=== PATIENT | male | born 1950 | race Caucasian/White ===

== ENCOUNTER → 2017-04-15 | Outpatient (CLI) | payer BC ==
--- NOTE | 2017-04-15 16:20 | PN ---
PROGRESS NOTE This is a very pleasant, 67-year-old male patient was diagnosed having very severe obstructive sleep apnea with an AHI of 111. The patient is coming in for a followup and a compliancy check regarding his CPAP treatment. I started CPAP treatments on this patient back in January of 2017. 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 Clinically the patient feels much better. He reports that he was and he was rejuvenated by the use of CPAP. He is wearing it at night and his compliance data over the past 60 days shows that he has used almost every night without any interruption. His average CPAP is around 4.6 hours per night. However I have seen some decline in the average CPAP use hours over the past month and is currently down to 3.7 hours on average. He is using an Megan View full-face mask and is leaking around 35 L/minutes. He is reporting that he is drooling into the mask and this is one of reasons why he was pulled mask overnight. His AHI is down to 2.5 while on treatment. He is morbidly obese. No significant weight gain or weight loss. Although he is trying to lose weight. He is committed to weight loss. Arousals have improved. No nocturia. Howland score is down to 2. No other complaints otherwise. PHYSICAL EXAMINATION: BP is 129/67, pulse 75, respirations 16, weight is 316, temperature 97.4, Howland score is 2. Saturation 95% on room air. General appearance is calm and comfortable. Head is atraumatic, normocephalic. Neck is supple. No goiter or neck masses. Mallampati class 4. Lungs clear to auscultation. Heart sounds are regular. Normal S1, S2. No S3. No murmurs. Abdomen is soft, nontender. No organomegaly. EXTREMITIES: No edema. No cyanosis or clubbing. NEUROLOGIC: Alert and oriented x3. There is no focal neurological deficits. Psychiatric is the patient has appropriate mood and affect. IMPRESSION: 1. Very severe obstructive sleep apnea AHI of 111. The patient undergoing CPAP therapy at a pressure of 15 cm of water. 2. Hypersomnia improved Howland score is 2. Will demand better compliance on CPAP therapy. 3. Severe periodic limb movements. 4. Obesity with a BMI of 46.4. 5. Chronic fatigue and sleepiness improving. 6. Benign prostatic hypertrophy. 7. Hypertension. PLAN: 1. Continue CPAP therapy pressure of 15 cm of water with CFLEX of 3. 2. Continue Megan View full-face mask. 3. Change the climate control to Steve and dropped the humidity down to 3 and then if drooling continues drop the humidity down to 2. 4. Utilize temperature tubing of 72 degrees Fahrenheit. 5. Encourage weight loss. 6. Implement good sleep hygiene measures. 7. I would demand improving compliance and I would ask the patient to use at least 4 hours of CPAP use every night. For that reason, I am going to ask the patient to come back in 6 months' time in followup. MMODL / IJN: [id number] /
== END | disposition home or self-care (01) ==
LOC: SLEEP 14:45
PROVIDERS: ATTEND Internal Medicine Critical Care Medicine
DX: G47.33 Obstructive sleep apnea (adult) (pediatric) (principal); G47.10 Hypersomnia, unspecified; G47.61 Periodic limb movement disorder; E66.9 Obesity, unspecified; R53.82 Chronic fatigue, unspecified; N40.0 Benign prostatic hyperplasia without lower urinary tract symptoms; I10 Essential (primary) hypertension; Z68.42 Body mass index [BMI] 45.0-49.9, adult; Z99.89 Dependence on other enabling machines and devices

== ENCOUNTER → 2017-10-28 | Outpatient (CLI) | payer BC ==
--- NOTE | 2017-10-28 18:01 | PN ---
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 Has obtained a DOC certification as the patient demonstrated good compliance. He is averaging of 4.9 hours of CPAP use per night and his pressures of 15 and his AHI is down to 3.3 while on treatment. His baseline AHI is 111 consistent with severe obstructive sleep apnea. He feels great. His sleep quality is improved. He is feeling refreshed during the day. He is using an Megan View full-face mask. He was having issues with humidity. I made some adjustments and currently the humidity and the climate controlled is auto through his CPAP unit. REVIEW OF SYSTEMS: 12-point review of system was done. Positive findings are mentioned above history of present illness. PHYSICAL EXAMINATION: BP is 116/79, pulse 74, respirations 16, temperature 16, temperature 97.6. Saturation 95% on room air. Weight is 318, height is 5 feet 9 inches and BMI is 46.9. General appearance: Calm and comfortable. Head is atraumatic, normocephalic. NECK: Supple. There is no JVD. No goiter. No neck masses. Crowding of the posterior pharynx. LUNGS: Clear to auscultation. HEART: Sounds regular rate and rhythm. Normal S1, S2. No S3. No murmurs. ABDOMEN: Soft, nontender. No organomegaly. EXTREMITIES: No edema. No cyanosis or clubbing. NEUROLOGIC: The patient is alert and orient x3. No focal neurological deficits. SKIN: Negative for any wounds or ulceration. PSYCH: Appropriate mood and affect. IMPRESSION: 1. Severe obstructive sleep apnea, AHI of 111 currently on CPAP with a pressure of 15. 2. Hypersomnia, improved. 3. Poor CPAP compliance. Improving and the patient has met the patient's guidelines and the patient had his DOT certification renewed. 4. Obesity with a BMI of 46. 5. Chronic fatigue and sleepiness improved. 6. Benign prostatic hypertrophy. 7. Hypertension. PLAN: 1. Continue CPAP at same level of pressure. 2. Continue using the Megan View full-face mask. 3. Change humidity and climate control to automatic. 4. Encourage weight loss. 5. See me back in a year's time, earlier if needed. MMODL / IJN: [id number] /
== END | disposition home or self-care (01) ==
LOC: SLEEP 16:07
PROVIDERS: ATTEND Internal Medicine Critical Care Medicine
DX: G47.33 Obstructive sleep apnea (adult) (pediatric) (principal); R53.82 Chronic fatigue, unspecified; N40.0 Benign prostatic hyperplasia without lower urinary tract symptoms; I10 Essential (primary) hypertension; E66.9 Obesity, unspecified; Z68.42 Body mass index [BMI] 45.0-49.9, adult

== ENCOUNTER 2018-02-25 06:42 | Day surgery (SDC) | payer BC, OTHER ==
[2018-02-23 09:17] VITALS: BMI 37.3
--- NOTE | 2018-02-25 07:43 | P.GSHP ---
History of Present Illness H&P Date: 02/25/18 CHIEF COMPLAINT: Colon screen HISTORY OF PRESENT ILLNESS: The patient is a 67-year-old male who presents for colon screen. Lower endoscopy was offered for further evaluation and management. PAST MEDICAL HISTORY: Please see list. PAST SURGICAL HISTORY: Please see list. MEDICATIONS: Please see list. ALLERGIES: Please see list. SOCIAL HISTORY: No illicit drug use FAMILY HISTORY: No reports of Crohn disease or ulcerative colitis. REVIEW OF ORGAN SYSTEMS: CONSTITUTIONAL: No reports of fevers or chills. PHYSICAL EXAM: VITAL SIGNS: Stable GENERAL: Well-developed pleasant in no acute distress. HEENT: No scleral icterus. Extraocular movements grossly intact. Moist buccal mucosa. NECK: Supple without lymphadenopathy. CHEST: Unlabored respirations. Equal bilateral excursions. CARDIOVASCULAR: Regular rate and rhythm. Distal 2+ pulses. ABDOMEN: Soft, nontender, nondistended. MUSCULOSKELETAL: No clubbing, cyanosis, or edema. ASSESSMENT: 1. Colon screen. PLAN: 1. Recommend proceeding with a lower endoscopy Past Medical History Past Medical History: Hypertension, Prostate Disorder Additional Past Medical History / Comment(s): BPH, ELECTROCUTED IN 1991- BODY ACHES. History of Any Multi-Drug Resistant Organisms: None Reported Additional Past Surgical History / Comment(s): CATARACTS Past Anesthesia/Blood Transfusion Reactions: No Reported Reaction Past Psychological History: No Psychological Hx Reported Smoking Status: Never smoker Past Alcohol Use History: Occasional Additional Past Alcohol Use History / Comment(s): SMOKED TEEN- QUIT 1968 Past Drug Use History: None Reported - Past Family History Mother Family Medical History: No Reported History Medications and Allergies Home Medications Medication Instructions Recorded Confirmed Type Carvedilol [Coreg] 25 mg PO BID 02/23/18 02/23/18 History Dutasteride [Avodart] 0.5 mg PO HS 02/23/18 02/23/18 History Ibuprofen [Advil] 200 mg PO Q48H PRN 02/23/18 02/23/18 History Lisinopril-Hctz 20-25 mg 1 tab PO DAILY 02/23/18 02/23/18 History [Zestoretic 20-25] amLODIPine [Norvasc] 10 mg PO DAILY 02/23/18 02/23/18 History
[2018-02-25] MEDS ORDERED: LACTATED RINGERS 1,000 ML IV SCH (08:07)
[2018-02-25 08:13] VITALS: TEMP 98.2
[2018-02-25] MEDS ORDERED: LIDOCAINE 1% 20 ML VIAL (10MG/ML) FOR IV START INTRADERMA ONE (08:24)
[2018-02-25] MEDS ORDERED: PROPOFOL 10 MG/ML 20 ML VIAL IV ONE (08:52)
[2018-02-25 09:34] VITALS: RESP 12
[2018-02-25 09:48] VITALS: BP 134/71; PULSE 69
--- NOTE | 2018-02-25 09:49 | P.PCN ---
Date of Procedure: 02/25/18 Description of Procedure: PREOPERATIVE DIAGNOSIS: Colonoscopy screening, first POSTOPERATIVE DIAGNOSIS: Colonoscopy screening, first Multiple tubular adenomas throughout the colon. OPERATION: Colonoscopy to the ileocecal valve and appendiceal orifice. Colonoscopy with multiple hot snare polypectomies SURGEON: Fay Duval MD. ANESTHESIA: MAC. INDICATIONS: The patient is a 67-year-old male who presents for colonoscopy screening. Benefits and risks were described and informed consent was obtained. DESCRIPTION OF PROCEDURE: The patient had undergone Gatorade, MiraLAX and Dulcolax prep. He had been brought into the operating room and laid in the left lateral decubitus position. After adequate intravenous sedation, the rectum was examined with 2% lidocaine jelly. External hemorrhoids were encountered. The rectal tone was within normal limits. No lesions were palpated in the rectal vault. An Olympus colonoscope was advanced until the ileocecal valve and appendiceal orifice were clearly viewed. The prep was fair with visualization of the mucosal folds. The scope was removed with visualization of each mucosal fold. No scattered diverticulosis was encountered. Multiple colonic polyps were found and snare polypectomy. No evidence of focal colitis was found. Retroflexion of the scope demonstrated no grade 1 internal hemorrhoids. The colon was desufflated. The patient had tolerated the procedure well. Withdrawal time was over 6 minutes. FINDINGS: Internal hemorrhoids, grade 1 External hemorrhoids, grade 2. No arteriovenous malformations. No sigmoid diverticulosis Removal of 7 polyps: - Snare polypectomy 20 cm from the anal verge, 5 mm tubulovillous adenoma polyp. - Snare polypectomy 15 cm from the anal verge, 8 mm flat villous adenoma polyp. - Snare polypectomy 10 cm from the anal verge, 12 mm flat villous adenoma polyp. - Snare polypectomy at cecum 2, 4 mm polyp, villous. - Snare polypectomy at appendiceal orifice, 5 mm polyp. - Snare polypectomy at ascending colon colon, 8 mm polyp. No focal colitis. RECOMMENDATIONS: Given severity of tubular adenomas, recommend repeat colonoscopy in 6 months, August 2018 Plan - Discharge Summary New Discharge Prescriptions: No Action amLODIPine [Norvasc] 10 mg PO DAILY Dutasteride [Avodart] 0.5 mg PO HS Carvedilol [Coreg] 25 mg PO BID Lisinopril-Hctz 20-25 mg [Zestoretic 20-25] 1 tab PO DAILY Ibuprofen [Advil] 200 mg PO Q48H PRN PRN Reason: Pain Discharge Medication List Carvedilol [Coreg] 25 mg PO BID 02/23/18 [History] Dutasteride [Avodart] 0.5 mg PO HS 02/23/18 [History] Ibuprofen [Advil] 200 mg PO Q48H PRN 02/23/18 [History] Lisinopril-Hctz 20-25 mg [Zestoretic 20-25] 1 tab PO DAILY 02/23/18 [History] amLODIPine [Norvasc] 10 mg PO DAILY 02/23/18 [History] Follow up Appointment(s)/Referral(s): Fay Duval MD [STAFF PHYSICIAN] - 03/24/18 Patient Instructions/Handouts: Colorectal Polyps (GEN) Activity/Diet/Wound Care/Special Instructions: Repeat colonoscopy 6 months, August 2018 Discharge Disposition: HOME SELF-CARE
== END 2018-02-25 10:08 | disposition home or self-care (01) ==
LOC: ORWHC2ENDO 06:42
PROVIDERS: ATTEND Surgery Plastic and Reconstructive Surgery
DX: Z12.11 Encounter for screening for malignant neoplasm of colon (principal); D12.7 Benign neoplasm of rectosigmoid junction; D12.1 Benign neoplasm of appendix; D12.0 Benign neoplasm of cecum; D12.5 Benign neoplasm of sigmoid colon; D17.79 Benign lipomatous neoplasm of other sites; K64.0 First degree hemorrhoids; K64.4 Residual hemorrhoidal skin tags; I10 Essential (primary) hypertension; N40.0 Benign prostatic hyperplasia without lower urinary tract symptoms; E66.01 Morbid (severe) obesity due to excess calories; Z68.37 Body mass index [BMI] 37.0-37.9, adult; Z79.899 Other long term (current) drug therapy; Z87.891 Personal history of nicotine dependence
CPT/HCPCS: 88305; 45385; J2704

== ENCOUNTER 2021-10-28 11:43 | Inpatient (IN) | payer BC, MEDICARE, OTHER ==
--- NOTE | 2021-10-28 13:12 | XR ---
EXAMINATION TYPE: XR chest 2V DATE OF EXAM: 10/28/2021 COMPARISON: None HISTORY: 71 year-old male shortness of breath, difficulty breathing. TECHNIQUE: PA and lateral views FINDINGS: Heart mildly enlarged. Diffuse interstitial change and perihilar density. Mild patchy basilar opaciti es. Trace effusions also suggested on the lateral view. DISH mid and lower and thoracic spine. IMPRESSION: Intimately diffuse interstitial changes. Appearance of trace effusions on the lateral view. Correlate for CHF with early interstitial edema.
[2021-10-28 13:46] LABS: Basophils # (A) 0.1 k/uL (0-0.2); Basophils % (A) 1 %; Eosinophils # (A) 0.1 k/uL (0-0.7); Eosinophils % (A) 2 %; HCT 41.8 % (39.0-53.0); Lymphocytes # (A) 0.8 k/uL (1.0-4.8); Lymphocytes % (A) 10 %; MCV 96.9 fL (80.0-100.0); Mean Platelet Volume 7.8; Monocytes # (A) 0.3 k/uL (0-1.0); Monocytes % (A) 3 %; Neutrophils # (A) 6.9 k/uL (1.3-7.7); Neutrophils % (A) 85 %; Platelet Count 193 k/uL (150-450); RBC 4.32 m/uL (4.30-5.90); RDW 13.9 % (11.5-15.5); WBC 8.1 k/uL (3.8-10.6)
[2021-10-28 13:59] LABS: Albumin 4.4 g/dL (3.5-5.0); Calcium 9.1 mg/dL (8.4-10.2); INR 1.1 (<1.2); Partial Thromboplastin Time 24.8 sec (22.0-30.0); Potassium 4.5 mmol/L (3.5-5.1); Prothrombin Time 11.8 sec (9.0-12.0); Total Bilirubin 0.5 mg/dL (0.2-1.3)
--- NOTE | 2021-10-28 15:37 | CT ---
EXAMINATION TYPE: CT angio chest CT DLP: 1146.3 mGycm, Automated exposure control for dose reduction was used. DATE OF EXAM: 10/28/2021 3:20 PM COMPARISON: Chest radiograph from same day. CLINICAL INDICATION:Male, 71 years old with history of PE suspected; SOB TECHNIQUE/CONTRAST: CTA scan of the thorax is performed with IV Contrast, patient injected with 100 mL of Isovue 370, pul monary embolism protocol. MIP images are created and reviewed. FINDINGS: Respiratory motion limits evaluation. Pulmonary Artery: There is no evidence for a central filling defect within the pulmonary vasculature to suggest acute pulmonary embolism. Limited evaluation of the segmental and subsegmental branches se condary to bolus timing. The pulmonary artery is of normal size. Lungs/Pleura: Motion limits evaluation there are Trace pleural effusion bilaterally. 9 mm left lower lobe pulmonary nodule. Right lower lobe 17 mm pulmonary nodule. No focal consolidation or pneumothora x. Airway: Large airways are patent. Heart: Heart is within normal limits for size.. Vasculature: No evidence of aortic aneurysm. Mediastinum: Right pulmonary hilum lymph nodes measuring up to 14 x 19 mm. Subcarinal lymph node nilo uring 14 mm in short axis. Musculoskeletal: No acute osseous abnormalities Soft Tissues: Unremarkable. Lower neck: No significant findings. Upper Abdomen: Diffuse low-attenuation to the liver parenchyma. IMPRESSION: 1. No evidence of central pulmonary embolism. Limited evaluation of the segmental and subsegmental br anches. 2. Bilateral pulmonary nodules which are suboptimally evaluated given respiratory motion. Additional mediastinal and right pulmonary hilum lymphadenopathy. Overall findings suspicious for malignancy wit h metastatic disease of the right pulmonary hilum. Consider PET/CT for confirmation. 3. Cardiomegaly with trace pleural effusions correlate with congestive heart failure. 4. Hepatic steatosis.
[2021-10-28] MEDS ORDERED: FUROSEMIDE 10 MG/ML 4 ML VIAL IV STA (15:53)
[2021-10-28] MEDS ORDERED: IPRATROPIUM-ALBUTEROL 3 ML NEB INHALATION STA (15:54)
--- NOTE | 2021-10-28 17:00 | ED ---
SOB HPI - General Chief Complaint: Shortness of Breath Stated Complaint: Pneumonia Time Seen by Provider: 10/28/21 14:29 Source: patient, RN notes reviewed Mode of arrival: wheelchair Limitations: no limitations - History of Present Illness Initial Comments: 71-year-old male with a history of being diagnosed with pneumonia couple weeks ago who was antibiotics and steroids she states she's getting no better since the initiation of the antibiotics and steroids. He has exertional dyspnea no chest pain he had hot and cold flashes a couple weeks ago but none recently. He is not a smoker denies any history of lung disease though he did work in a [employer]. MD Complaint: shortness of breath - Related Data Home Medications Medication Instructions Recorded Confirmed Dutasteride [Avodart] 0.5 mg PO HS 02/23/18 08/31/18 Lisinopril-Hctz 20-25 mg 1 tab PO DAILY 02/23/18 08/31/18 [Zestoretic 20-25] amLODIPine [Norvasc] 10 mg PO DAILY 02/23/18 08/31/18 carvediloL [Coreg] 25 mg PO BID 02/23/18 08/31/18 Naproxen Sodium [Aleve] 220 mg PO DAILY 08/31/18 08/31/18 Allergies Allergy/AdvReac Type Severity Reaction Status Date / Time No Known Allergies Allergy Verified 10/28/21 12:26 Review of Systems ROS Statement: Those systems with pertinent positive or pertinent negative responses have been documented in the HPI. ROS Other: All systems not noted in ROS Statement are negative. Past Medical History Past Medical History: Hypertension, Prostate Disorder Additional Past Medical History / Comment(s): BPH, ELECTROCUTED IN 1991- BODY ACHES. History of Any Multi-Drug Resistant Organisms: None Reported Additional Past Surgical History / Comment(s): CATARACTS Past Anesthesia/Blood Transfusion Reactions: No Reported Reaction Past Psychological History: No Psychological Hx Reported Smoking Status: Never smoker Past Alcohol Use History: Occasional Past Drug Use History: None Reported - Past Family History Mother Family Medical History: No Reported History General Exam - General Exam Comments Initial Comments: This is a well-developed well-nourished awake alert oriented 4 male Limitations: no limitations General appearance: alert, in no apparent distress Head exam: Present: atraumatic, normocephalic, normal inspection Eye exam: Present: normal appearance, PERRL, EOMI. Absent: scleral icterus, conjunctival injection, periorbital swelling ENT exam: Present: normal exam, mucous membranes moist Neck exam: Present: normal inspection. Absent: tenderness, meningismus, lymphadenopathy Respiratory exam: Present: decreased breath sounds. Absent: respiratory distress, wheezes, rales, rhonchi, stridor Cardiovascular Exam: Present: regular rate, normal rhythm, normal heart sounds. Absent: systolic murmur, diastolic murmur, rubs, gallop, clicks GI/Abdominal exam: Present: soft, normal bowel sounds. Absent: distended, tenderness, guarding, rebound, rigid Extremities exam: Present: normal inspection, full ROM, normal capillary refill. Absent: tenderness, pedal edema, joint swelling, calf tenderness Back exam: Present: normal inspection Neurological exam: Present: alert, oriented X3, CN II-XII intact Psychiatric exam: Present: normal affect, normal mood Skin exam: Present: warm, dry, intact, normal color. Absent: rash Course Vital Signs 10/28/21 10/28/21 10/28/21 12:26 16:10 16:21 Temperature 98.7 F Pulse Rate 79 70 71 Respiratory 18 Rate Blood Pressure 131/73 O2 Sat by Pulse 91 L Oximetry Medical Decision Making - Medical Decision Making I did discuss the findings with the patient family members as well as with Dr. Bolanos. Patient be admitted consultation by pulmonary medicine. - Lab Data Result diagrams: 10/28/21 12:29 10/28/21 12:29 Lab Results 10/28/21 10/28/21 10/28/21 Range/Units 12:29 12:29 12:29 WBC 8.1 (3.8-10.6) k/uL RBC 4.32 (4.30-5.90) m/uL Hgb 13.0 (13.0-17.5) gm/dL Hct 41.8 (39.0-53.0) % MCV 96.9 (80.0-100.0) fL MCH 30.0 (25.0-35.0) pg MCHC 31.0 (31.0-37.0) g/dL RDW 13.9 (11.5-15.5) % Plt Count 193 (150-450) k/uL MPV 7.8 Neutrophils % 85 % Lymphocytes % 10 % Monocytes % 3 % Eosinophils % 2 % Basophils % 1 % Neutrophils # 6.9 (1.3-7.7) k/uL Lymphocytes # 0.8 L (1.0-4.8) k/uL Monocytes # 0.3 (0-1.0) k/uL Eosinophils # 0.1 (0-0.7) k/uL Basophils # 0.1 (0-0.2) k/uL PT 11.8 (9.0-12.0) sec INR 1.1 (<1.2) APTT 24.8 (22.0-30.0) sec D-Dimer 0.81 H (<0.60) mg/L FEU Sodium 142 (137-145) mmol/L Potassium 4.5 (3.5-5.1) mmol/L Chloride 103 (98-107) mmol/L Carbon Dioxide 28 (22-30) mmol/L Anion Gap 11 mmol/L BUN 30 H (9-20) mg/dL Creatinine 1.14 (0.66-1.25) mg/dL Est GFR (CKD-EPI)AfAm 75 (>60 ml/min/1.73 sqM) Est GFR (CKD-EPI)NonAf 65 (>60 ml/min/1.73 sqM) Glucose 116 H (74-99) mg/dL Plasma Lactic Acid Damian (0.7-2.0) mmol/L Calcium 9.1 (8.4-10.2) mg/dL Total Bilirubin 0.5 (0.2-1.3) mg/dL AST 134 H (17-59) U/L ALT 172 H (4-49) U/L Alkaline Phosphatase 73 (38-126) U/L Troponin I (0.000-0.034) ng/mL NT-Pro-B Natriuret Pep pg/mL Total Protein 8.0 (6.3-8.2) g/dL Albumin 4.4 (3.5-5.0) g/dL 10/28/21 10/28/21 10/28/21 Range/Units 12:29 12:29 12:29 WBC (3.8-10.6) k/uL RBC (4.30-5.90) m/uL Hgb (13.0-17.5) gm/dL Hct (39.0-53.0) % MCV (80.0-100.0) fL MCH (25.0-35.0) pg MCHC (31.0-37.0) g/dL RDW (11.5-15.5) % Plt Count (150-450) k/uL MPV Neutrophils % % Lymphocytes % % Monocytes % % Eosinophils % % Basophils % % Neutrophils # (1.3-7.7) k/uL Lymphocytes # (1.0-4.8) k/uL Monocytes # (0-1.0) k/uL Eosinophils # (0-0.7) k/uL Basophils # (0-0.2) k/uL PT (9.0-12.0) sec INR (<1.2) APTT (22.0-30.0) sec D-Dimer (<0.60) mg/L FEU Sodium (137-145) mmol/L Potassium (3.5-5.1) mmol/L Chloride (98-107) mmol/L Carbon Dioxide (22-30) mmol/L Anion Gap mmol/L BUN (9-20) mg/dL Creatinine (0.66-1.25) mg/dL Est GFR (CKD-EPI)AfAm (>60 ml/min/1.73 sqM) Est GFR (CKD-EPI)NonAf (>60 ml/min/1.73 sqM) Glucose (74-99) mg/dL Plasma Lactic Acid Damian 0.9 (0.7-2.0) mmol/L Calcium (8.4-10.2) mg/dL Total Bilirubin (0.2-1.3) mg/dL AST (17-59) U/L ALT (4-49) U/L Alkaline Phosphatase (38-126) U/L Troponin I <0.012 (0.000-0.034) ng/mL NT-Pro-B Natriuret Pep 981 pg/mL Total Protein (6.3-8.2) g/dL Albumin (3.5-5.0) g/dL - EKG Data -: EKG Interpreted by Me EKG shows normal: sinus rhythm EKG Comments: Sinus rhythm occasional PACs rate 67. We'll 171 QRS duration 90 QT since QTC 380/403 - Radiology Data Radiology results: report reviewed (Imaging reviewed as well as reports evidence of some pulmonary venous or congestion small effusion on the lateral x-ray. Additionally CAT scan shows evidence of lymphadenopathy suspicious for neoplasm. He see complete report), image reviewed Disposition Clinical Impression: Congestive heart failure, Acute bronchospasm, Failure of outpatient treatment Disposition: ADMITTED IP TO THIS [facility] Condition: Fair Referrals: Devonte Baum DO [Primary Care Provider] - 1-2 days Decision Date: 10/28/21 Decision Time: 16:30
[2021-10-28] MEDS ORDERED: NALOXONE 0.4 MG/ML 1 ML VIAL IV PRN (17:11)
[2021-10-28] MEDS ORDERED: ACETAMINOPHEN TAB 325 MG TAB PO PRN (17:11)
[2021-10-28] MEDS ORDERED: methylPREDNISolone SOD SUCCI 125 MG/2 ML VIAL IV STA (17:14)
[2021-10-28] MEDS: SODIUM CHLORIDE 0.9% 1,000 ML IV SCH (17:31)
[2021-10-28] MEDS: methylPREDNISolone SOD SUCCI 125 MG/2 ML VIAL IV SCH ×2 (18:33→23:35)
[2021-10-28] MEDS: IPRATROPIUM-ALBUTEROL 3 ML NEB INHALATION SCH (21:27)
[2021-10-28] MEDS: carvediloL 12.5 MG TAB PO SCH (22:53)
[2021-10-28] MEDS: FINASTERIDE 5 MG TAB PO SCH (22:54)
[2021-10-29] MEDS: IPRATROPIUM-ALBUTEROL 3 ML NEB INHALATION SCH ×4 (01:47→19:21)
[2021-10-29] MEDS: methylPREDNISolone SOD SUCCI 125 MG/2 ML VIAL IV SCH ×3 (05:30→18:01)
[2021-10-29] MEDS: amLODIPine 10 MG TAB PO SCH (09:31)
[2021-10-29] MEDS: carvediloL 12.5 MG TAB PO SCH ×2 (09:31→21:24)
[2021-10-29] MEDS: NAPROXEN 250 MG TAB PO SCH (10:00)
[2021-10-29] MEDS: LISINOPRIL-HCTZ 20-25 MG 1 EACH TAB PO SCH (10:00)
[2021-10-29] MEDS: FUROSEMIDE 20 MG TAB PO SCH ×2 (11:34→18:02)
[2021-10-29] MEDS ORDERED: DEXTROSE 50% SYRINGE 50 ML IVP PRN ×2 (11:39)
--- NOTE | 2021-10-29 11:40 | P.HPIM ---
History of Present Illness This is a pleasant 71 years old male with past medical history of hypertension, sleep apnea, benign prostatic hypertrophy. Patient states that he wants [facility] about 8 days ago complaining of from shortness of breath and coughing with greenish phlegm and he was diagnosed with pneumonia, he was discharge on oral antibiotic, snf through he was not feeling better so he contacted his PCP Dr. Baum who prescribed him steroid pill, still was not feeling better he decided to come to this facility emergency room. Today I saw him in room 481, dressed up and walking in the room, he is not tachypneic or dyspneic Kay he is saturating well on room air. He denies any dyspnea currently no chest pain. He has no coughing or does not make phlegm today. He denies abdominal pain or vomiting or diarrhea. No urinary complaints. No headache or dizziness. No weakness or numbness. No fever. He denies smoking, last time he smoked was in high school. No alcohol or illicit drugs. Son at bedside all questions answered. Patient's looks eager to go home soon Patient is afebrile, vitals are stable. He is saturating low 90s on room air. significantly tachypneic. Labs show an unremarkable CBC, BMP, but liver enzymes are elevated with AST 134 and ALT 172. Bilirubin is normal. Troponin 3 are negative less than 0.012. ProBNP 981 EKG showing normal sinus rhythm at [address]-T changes Chest x-ray: Diffuse interstitial changes. Appearance of trace effusions on the lateral view. Coronary event for CHF with early interstitial edema. As per radiology Chest CTA: No evidence of PE. Bilateral pulmonary nodules which are suboptimally evaluated given respiratory motion, additional mediastinal and right pulmonary hilar lymphadenopathy. Overall findings suspicious for malignancy with metastatic disease of the right pulmonary hilum. Consider PET/CTs for confirmation cardiomegaly with trace pleural effusions, correlate for CHF. Hepatic steatosis In the emergency room patient received Lasix 1, breathing treatment and started on Solu-Medrol 60 mg Review of Systems Review of systems CONSTITUTIONAL: No fever, no malaise, no fatigue. HEENT: No recent visual problems or hearing problems. Denied any sore throat. CARDIOVASCULAR: No orthopnea, PND, no palpitations, no syncope. PULMONARY: No chest wall tenderness, no hemoptysis. GASTROINTESTINAL: No diarrhea, no nausea, no vomiting, no abdominal pain. Normoactive bowel sounds. NEUROLOGICAL: No headaches, no weakness, no numbness. HEMATOLOGICAL: Denies any bleeding or petechiae. GENITOURINARY: Denies any burning micturition, frequency, or urgency. MUSCULOSKELETAL/RHEUMATOLOGICAL: Denies any joint pain, swelling, or any muscle pain. ENDOCRINE: Denies any polyuria or polydipsia. Past Medical History Past Medical History: Hypertension, Sleep Apnea/CPAP/BIPAP Additional Past Medical History / Comment(s): BPH, ELECTROCUTED IN 1991- BODY ACHES. History of Any Multi-Drug Resistant Organisms: None Reported Additional Past Surgical History / Comment(s): CATARACTS Past Anesthesia/Blood Transfusion Reactions: No Reported Reaction Past Psychological History: No Psychological Hx Reported Smoking Status: Former smoker Past Alcohol Use History: Occasional Additional Past Alcohol Use History / Comment(s): SMOKED TEEN- QUIT 1968 Past Drug Use History: None Reported - Past Family History Mother Family Medical History: No Reported History Father Family Medical History: Congestive Heart Failure (CHF) Medications and Allergies Home Medications Medication Instructions Recorded Confirmed Type Dutasteride [Avodart] 0.5 mg PO HS 02/23/18 10/28/21 History amLODIPine [Norvasc] 10 mg PO DAILY 02/23/18 10/28/21 History carvediloL [Coreg] 25 mg PO BID 02/23/18 10/28/21 History Aspirin EC [Ecotrin Low Dose] 81 mg PO DAILY 10/28/21 10/28/21 History Losartan/Hydrochlorothiazide 1 tab PO DAILY 10/28/21 10/28/21 History [Losartan-Hctz 100-25 mg Tab] Multivitamins, Thera [Multivitamin 1 tab PO DAILY 10/28/21 10/28/21 History (formulary)] predniSONE See Taper PO DIRECTED 10/28/21 10/28/21 History Allergies Allergy/AdvReac Type Severity Reaction Status Date / Time No Known Allergies Allergy Verified 10/28/21 17:31 Physical Exam Vitals: Vital Signs Temp Pulse Pulse Resp BP BP Pulse Ox 10/29/21 09:32 92 L 10/29/21 08:34 68 10/29/21 08:27 72 10/29/21 07:56 98 F 69 16 157/94 93 L 10/29/21 07:43 18 10/29/21 02:00 98.3 F 78 18 173/95 92 L 10/29/21 01:56 69 10/29/21 01:47 71 10/28/21 21:39 70 10/28/21 21:28 68 10/28/21 20:00 98.4 F 67 18 165/77 94 L 10/28/21 18:00 69 18 119/72 10/28/21 16:21 71 10/28/21 16:10 70 10/28/21 14:29 18 10/28/21 12:26 98.7 F 79 18 131/73 91 L Intake and Output 10/28/21 10/29/21 10/29/21 22:59 06:59 14:59 Other: Voiding Method Toilet Toilet # Voids 2 Weight 149.685 kg -GENERAL: The patient is alert and oriented x3, not in any acute distress. Obese HEENT: Pupils are round and equally reacting to light. EOMI. No scleral icterus. No conjunctival pallor. Normocephalic, atraumatic. No pharyngeal erythema. No thyromegaly. CARDIOVASCULAR: S1 and S2 present. No murmurs, rubs, or gallops. PULMONARY: Chest is clear to auscultation, no wheezing or crackles. ABDOMEN: Soft, nontender, nondistended, normoactive bowel sounds. No palpable organomegaly. MUSCULOSKELETAL: No joint swelling or deformity. EXTREMITIES: No cyanosis, clubbing, or pedal edema. NEUROLOGICAL: Gross neurological examination did not reveal any focal deficits. SKIN: No rashes. no petechiae. Results CBC & Chem 7: 10/28/21 12:29 10/28/21 12:29 Labs: Abnormal Lab Results - Last 24 Hours (Table) 10/28/21 10/28/21 10/28/21 Range/Units 12:29 12:29 12:29 Lymphocytes # 0.8 L (1.0-4.8) k/uL D-Dimer 0.81 H (<0.60) mg/L FEU BUN 30 H (9-20) mg/dL Glucose 116 H (74-99) mg/dL AST 134 H (17-59) U/L ALT 172 H (4-49) U/L Thrombosis Risk Factor Assmnt - Choose All That Apply Each Factor Represents 1 point: Obesity (BMI >25) Other Risk Factors: Yes Each Risk Factor Represents 2 Points: Age 61-74 years Other congenital or acquired thrombophilia - If yes, enter type in comment: No Thrombosis Risk Factor Assessment Total Risk Factor Score: 3 Thrombosis Risk Factor Assessment Level: Moderate Risk Assessment and Plan Assessment: bilateral pulmonary nodules suspicious for malignancy with hilar and mediastinal lymphadenopathy. Possible COPD with acute exacerbation Mild transaminitis Hypertension History of sleep apnea Benign prostatic hypertrophy Obesity with BMI of 46 Plan: This is a pleasant 71 years old male who presents with dyspnea secondary to pulmonary nodule Continue with steroids Continue with small dose of oral Lasix Pulmonary team consult on the case Labs and medication were reviewed.. Continue same treatment. Continue with symptomatic treatment. Resume home medication. Monitor lytes and vitals. DVT and GI prophylaxis. Further recommendations as per clinical course of the patient DVT prophylaxis: Subcutaneous heparin GI Prophylaxis: Pepcid Prognosis is guarded
[2021-10-29] MEDS: INSULIN ASPART (NovoLOG) 100 UNIT/ML VIAL SQ SCH ×3 (12:32→21:24)
--- NOTE | 2021-10-29 13:04 | P.CNPUL ---
History of Present Illness Consult date: 10/29/21 Requesting physician: Nic Ramírez Reason for consult: dyspnea, abnormal CXR/CT Chief complaint: Shortness of breath, cough, congestion History of present illness: This is a very pleasant 71-year-old male patient who follows with Dr. Baum as his primary care provider. He has a history of hypertension, obesity, obstructive sleep apnea, former smoker, BPH. He had recently been having issues with shortness of breath cough and congestion. He was seen at [facility] and treated for pneumonia. CoVID screen was negative. He was given antibiotics. He is in follow-up with his PCP was started him on steroids. He did not have much improvement and presented here to the emergency room for the same. Chest x-ray revealed some diffuse interstitial changes with trace effusions. CT angiogram revealed no evidence of pulmonary embolism. Bilateral pulmonary nodules. Additional mediastinal right pulmonary hilum lymphadenopathy. Cardiomegaly with trace effusions. Hepatic steatosis. White count 8.1. Hemoglobin 13.0. D-dimer 0.81. Sodium 142. Potassium 4.2. BUN 30. Creatinine 1.14. AST 134. ALT 172. Troponins negative 3. ProBNP 981. He was given Lasix 40 mg IVP 1 yesterday. Initiated and DuoNeb inhalations, IV Solu-Medrol, heparin for DVT prophylaxis. He is seen today in consultation on the regular medical floor. He's been up ambulating in the hallway. No acute distress. Maintaining O2 saturations in the 90s on room air. Review of Systems REVIEW OF SYSTEMS: CONSTITUTIONAL: Denies any recent significant weight loss or weight gain. EYES: Denies change in vision. EARS, NOSE, MOUTH, THROAT: Denies headaches, denies sore throat. CARDIOVASCULAR: Denies chest pain, palpitations or syncopal episodes. RESPIRATORY: Positive for shortness of breath, cough, congestion no hemoptysis. GASTROINTESTINAL: Denies change in appetite, denies abdominal pain GENITOURINARY: Denies hematuria, denies infections. MUSKULOSKELETAL: Denies pain, denies swelling. INTEGUMENTARY: Denies rash, denies eczema. NEUROLOGICAL: Denies recent memory loss, no recent seizure activity. PSYCHIATRIC: Denies anxiety, denies depression. HEMATOLOGIC/LYMPHATIC: Denies anemia, denies enlarged lymph nodes. Past Medical History Past Medical History: Hypertension, Sleep Apnea/CPAP/BIPAP Additional Past Medical History / Comment(s): BPH, ELECTROCUTED IN 1991- BODY ACHES. History of Any Multi-Drug Resistant Organisms: None Reported Additional Past Surgical History / Comment(s): CATARACTS Past Anesthesia/Blood Transfusion Reactions: No Reported Reaction Past Psychological History: No Psychological Hx Reported Smoking Status: Former smoker Past Alcohol Use History: Occasional Additional Past Alcohol Use History / Comment(s): SMOKED TEEN- QUIT 1968 Past Drug Use History: None Reported - Past Family History Mother Family Medical History: No Reported History Father Family Medical History: Congestive Heart Failure (CHF) Medications and Allergies Home Medications Medication Instructions Recorded Confirmed Type Dutasteride [Avodart] 0.5 mg PO HS 02/23/18 10/28/21 History amLODIPine [Norvasc] 10 mg PO DAILY 02/23/18 10/28/21 History carvediloL [Coreg] 25 mg PO BID 02/23/18 10/28/21 History Aspirin EC [Ecotrin Low Dose] 81 mg PO DAILY 10/28/21 10/28/21 History Losartan/Hydrochlorothiazide 1 tab PO DAILY 10/28/21 10/28/21 History [Losartan-Hctz 100-25 mg Tab] Multivitamins, Thera [Multivitamin 1 tab PO DAILY 10/28/21 10/28/21 History (formulary)] predniSONE See Taper PO DIRECTED 10/28/21 10/28/21 History Allergies Allergy/AdvReac Type Severity Reaction Status Date / Time No Known Allergies Allergy Verified 10/28/21 17:31 Physical Exam Vitals: Vital Signs Temp Pulse Pulse Resp BP BP Pulse Ox 10/29/21 12:48 72 10/29/21 09:32 92 L 10/29/21 08:34 68 10/29/21 08:27 72 10/29/21 07:56 98 F 69 16 157/94 93 L 10/29/21 07:43 18 10/29/21 02:00 98.3 F 78 18 173/95 92 L 10/29/21 01:56 69 10/29/21 01:47 71 10/28/21 21:39 70 10/28/21 21:28 68 10/28/21 20:00 98.4 F 67 18 165/77 94 L 10/28/21 18:00 69 18 119/72 10/28/21 16:21 71 10/28/21 16:10 70 10/28/21 14:29 18 Intake and Output 10/28/21 10/29/21 10/29/21 22:59 06:59 14:59 Other: Voiding Method Toilet Toilet # Voids 2 Weight 149.685 kg GENERAL EXAM: Alert, active, very pleasant obese 71-year-old male patient, on room air, comfortable in no apparent distress. HEAD: Normocephalic. EYES: Normal reaction of pupils, equal size. NOSE: Clear with pink turbinates. THROAT: No erythema or exudates. NECK: No masses, no JVD. CHEST: No chest wall deformity. LUNGS: Equal air entry with faint crackles in the posterior bases CVS: S1 and S2 normal with no audible murmur, regular rhythm. ABDOMEN: No hepatosplenomegaly, normal bowel sounds, no guarding or rigidity. SPINE: No scoliosis or deformity SKIN: No rashes CENTRAL NERVOUS SYSTEM: No focal deficits, tone is normal in all 4 extremities. EXTREMITIES: There is no peripheral edema. No clubbing, no cyanosis. Perip heral pulses are intact. Results - Laboratory Findings CBC and BMP: 10/28/21 12:29 10/28/21 12:29 PT/INR, D-dimer PT 11.8 sec (9.0-12.0) 10/28/21 12:29 INR 1.1 (<1.2) 10/28/21 12:29 D-Dimer 0.81 mg/L FEU (<0.60) H 10/28/21 12:29 Abnormal lab findings: Abnormal Labs 10/28/21 10/28/21 10/28/21 12:29 12:29 12:29 Lymphocytes # 0.8 L D-Dimer 0.81 H BUN 30 H Glucose 116 H AST 134 H ALT 172 H - Diagnostic Findings Chest x-ray: image reviewed CT scan - chest: image reviewed Assessment and Plan Assessment: Dyspnea suspect secondary to diffuse interstitial edema possible CHF Bilateral pulmonary nodules suboptimally evaluated given respiratory motion artifact. Additional mediastinal and right pulmonary hilum lymphadenopathy. Mild transaminitis BPH Hypertension Obesity Plan: The patient was seen and evaluated Chest x-ray, CAT scan and labs reviewed Add Lasix 20 mg by mouth twice a day Obtain echocardiogram Plan for outpatient repeat computed tomography scan versus PET scan We will continue to follow and make further recommendations based on his clinical status I have personally seen and examined the patient, performed the documentation and the assessment and plan as written. Number of minutes spent on the visit: 20.
[2021-10-29 17:09] LABS: Glucose,Whole Blood 165 mg/dL (70-110)
[2021-10-29] MEDS: SODIUM CHLORIDE 0.9% 1,000 ML IV SCH (17:36)
[2021-10-29 19:54] VITALS: RESP 18
[2021-10-29 21:13] LABS: Glucose,Whole Blood 161 mg/dL (70-110)
[2021-10-29] MEDS: HEPARIN SODIUM,PORCINE/PF 5,000 UNIT/0.5 ML SYRINGE SQ SCH (21:23)
[2021-10-29] MEDS: FINASTERIDE 5 MG TAB PO SCH (21:23)
[2021-10-29] MEDS: FAMOTIDINE 20 MG/2 ML VIAL IV SCH (21:26)
[2021-10-30] MEDS: methylPREDNISolone SOD SUCCI 125 MG/2 ML VIAL IV SCH ×3 (00:38→11:33)
[2021-10-30] MEDS: IPRATROPIUM-ALBUTEROL 3 ML NEB INHALATION SCH ×3 (01:15→14:57)
[2021-10-30 06:56] LABS: Glucose,Whole Blood 158 mg/dL (70-110)
--- NOTE | 2021-10-30 08:02 | P.CRDCN ---
History of Present Illness Consult date: 10/30/21 Chief complaint: Shortness of breath History of present illness: This is a 71-year-old gentleman with a past medical history significant for obes ity and hypertension presented to the emergency department complaining. The patient is started about a week ago with shortness of breath but no associated symptoms of cough or fever or chills or sputum production. Initially he presented into an urgent care where he'll prescribe steroid with no improvement. Subsequently he was seen by his primary care physician where antibiotic was prescribed as well was no significant improvement because her shortness of breath get worse he decided to come to the emergency department. He reports no pain in the chest associated with shortness of breath and no dizziness or lightheadedness and no feeling of heart racing or fluttering and no presyncope or syncope. He underwent an evaluation including a chest x-ray which showed no acute abnormalities. He underwent an EKG which showed sinus rhythm with no significant ST or T-wave abnormalities. He also underwent a computed tomography scan of the chest which came in to be unremarkable for pulmonary embolism but it did show some chronic lung disease. Subsequently the patient was seen by the pulmonary service who felt that the shortness of breath could be related to a component of heart failure. The patient was started on Lasix by mouth. When he was seen this morning he states that his shortness of breath has improved significantly after he was started on diuretics. When he was seen and examined this morning he seems to be somewhat euvolemic with diminished breathing sounds bilaterally. To assess his JVD because of the short neck. He is in process of getting an echocardiogram. Currently he is maintaining on Lasix at 20 mg by mouth twice a day. His NT proBNP came in to be about 800 which could be falsely low because of the obesity Past Medical History Past Medical History: Hypertension, Sleep Apnea/CPAP/BIPAP Additional Past Medical History / Comment(s): BPH, ELECTROCUTED IN 1991- BODY ACHES. History of Any Multi-Drug Resistant Organisms: None Reported Additional Past Surgical History / Comment(s): CATARACTS Past Anesthesia/Blood Transfusion Reactions: No Reported Reaction Past Psychological History: No Psychological Hx Reported Smoking Status: Former smoker Past Alcohol Use History: Occasional Additional Past Alcohol Use History / Comment(s): SMOKED TEEN- QUIT 1967 Past Drug Use History: None Reported - Past Family History Mother Family Medical History: No Reported History Father Family Medical History: Congestive Heart Failure (CHF) Medications and Allergies Home Medications Medication Instructions Recorded Confirmed Type Dutasteride [Avodart] 0.5 mg PO HS 02/23/18 10/28/21 History amLODIPine [Norvasc] 10 mg PO DAILY 02/23/18 10/28/21 History carvediloL [Coreg] 25 mg PO BID 02/23/18 10/28/21 History Aspirin EC [Ecotrin Low Dose] 81 mg PO DAILY 10/28/21 10/28/21 History Losartan/Hydrochlorothiazide 1 tab PO DAILY 10/28/21 10/28/21 History [Losartan-Hctz 100-25 mg Tab] Multivitamins, Thera [Multivitamin 1 tab PO DAILY 10/28/21 10/28/21 History (formulary)] predniSONE See Taper PO DIRECTED 10/28/21 10/28/21 History Allergies Allergy/AdvReac Type Severity Reaction Status Date / Time No Known Allergies Allergy Verified 10/28/21 17:31 Physical Exam Vitals: Vital Signs Temp Pulse Pulse Resp BP Pulse Ox 10/30/21 07:57 98.2 F 71 18 147/88 92 L 10/30/21 02:00 98.0 F 85 18 122/55 91 L 10/30/21 01:25 76 10/30/21 01:15 76 10/29/21 21:24 84 18 10/29/21 19:53 84 18 178/83 99 10/29/21 19:33 72 10/29/21 19:23 70 10/29/21 14:00 97.6 F 80 17 136/77 93 L 10/29/21 12:48 72 10/29/21 09:32 92 L 10/29/21 08:34 68 10/29/21 08:27 72 Intake and Output 10/29/21 10/30/21 10/30/21 22:59 06:59 14:59 Intake Total 600 Balance 600 Intake: Oral 600 Other: Voiding Method Toilet # Voids 3 3 - Constitutional General appearance: no acute distress - Respiratory Respiratory: bilateral: diminished - Cardiovascular Rhythm: regular Heart sounds: normal: S1, S2 Abnormal Heart Sounds: systolic murmur Results 10/28/21 12:29 10/28/21 12:29 Current Medications Generic Name Dose Route Start Last Admin Trade Name Freq PRN Reason Stop Dose Admin Acetaminophen 650 mg 10/28/21 17:11 Acetaminophen Tab 325 Mg Tab PO Q6HR PRN Mild Pain or Fever > 100.5 Albuterol/Ipratropium 3 ml 10/28/21 20:00 10/30/21 01:15 Ipratropium-Albuterol 3 Ml Neb INHALATION 3 ml RT-Q6H VALDO Administration Amlodipine Besylate 10 mg 10/29/21 09:00 10/29/21 09:31 Amlodipine 10 Mg Tab PO 10 mg DAILY VALDO Administration Carvedilol 25 mg 10/28/21 21:00 10/29/21 21:24 Carvedilol 12.5 Mg Tab PO 25 mg BID VALDO Administration Dextrose/Water 25 ml 10/29/21 11:39 Dextrose 50% Syringe 50 Ml IVP PER PROTOCOL PRN Hypoglycemia Protocol Dextrose/Water 50 ml 10/29/21 11:39 Dextrose 50% Syringe 50 Ml IVP PER PROTOCOL PRN Hypoglycemia Protocol Famotidine 20 mg 10/29/21 21:00 10/29/21 21:26 Famotidine 20 Mg/2 Ml Vial IV 20 mg Q12HR VALDO Administration Finasteride 5 mg 10/28/21 21:00 10/29/21 21:23 Finasteride 5 Mg Tab PO 5 mg HS VALDO Administration Furosemide 20 mg 10/29/21 11:00 10/29/21 18:02 Furosemide 20 Mg Tab PO 20 mg BID@0900,1600 VALDO Administration Lisinopril/HCTZ 1 each 10/29/21 09:00 10/29/21 10:00 Lisinopril-Hctz 20-25 Mg 1 Each Tab PO 1 each DAILY VALDO Administration Heparin Sodium (Porcine) 5,000 unit 10/29/21 21:00 10/29/21 21:23 Heparin Sodium,Porcine/Pf 5,000 Unit/0.5 Ml Syringe SQ 5,000 unit Q12HR VALDO Administration Sodium Chloride 1,000 mls @ 20 mls/hr 10/28/21 17:15 10/29/21 17:36 Saline 0.9% IV Not Given .Q24H VALDO Insulin Aspart 0 unit 10/29/21 12:30 10/29/21 21:24 Insulin Aspart (Novolog) 100 Unit/Ml Vial SQ 2 unit ACHS VALDO Administration Protocol Methylprednisolone Sodium Succinate 60 mg 10/28/21 18:00 10/30/21 05:37 Methylprednisolone Sod Succi 125 Mg/2 Ml Vial IV 60 mg Q6HR VALDO Administration Naloxone HCl 0.2 mg 10/28/21 17:11 Naloxone 0.4 Mg/Ml 1 Ml Vial IV Q2M PRN Opioid Reversal Naproxen 220 mg 10/29/21 09:00 10/29/21 10:00 Naproxen 250 Mg Tab PO 220 mg DAILY VALDO Administration Intake and Output 10/29/21 10/30/21 10/30/21 22:59 06:59 14:59 Intake Total 600 Balance 600 Intake: Oral 600 Other: Voiding Method Toilet # Voids 3 3 10/28/21 12:29 10/28/21 12:29 Assessment and Plan Assessment: Assessment #1 shortness of breath likely to be multi-factorial and probably related to a component of heart failure #2 heart failure of unknown etiology. Likely his heart failure was present ejection fraction #3 obesity #4 hypertension Plan #1 continue the current dose of Lasix by mouth #2 the patient felt better after Lasix. His kidney function continues to be within normal limits #3 follow-up on the echocardiogram #4 further recommendation to follow
[2021-10-30] MEDS: LISINOPRIL-HCTZ 20-25 MG 1 EACH TAB PO SCH (08:15)
[2021-10-30] MEDS: FUROSEMIDE 20 MG TAB PO SCH ×2 (08:15→15:01)
[2021-10-30] MEDS: NAPROXEN 250 MG TAB PO SCH (08:15)
[2021-10-30] MEDS: HEPARIN SODIUM,PORCINE/PF 5,000 UNIT/0.5 ML SYRINGE SQ SCH (08:15)
[2021-10-30] MEDS: INSULIN ASPART (NovoLOG) 100 UNIT/ML VIAL SQ SCH ×2 (08:16→11:23)
[2021-10-30] MEDS: carvediloL 12.5 MG TAB PO SCH (08:16)
[2021-10-30] MEDS: amLODIPine 10 MG TAB PO SCH (08:16)
[2021-10-30] MEDS: FAMOTIDINE 20 MG/2 ML VIAL IV SCH (09:25)
[2021-10-30 09:33] LABS: Estimated Average Glucose CANCELED
[2021-10-30 09:33] LABS: African American GFR (CKD) 74.6 (60.0-200.0); Albumin 4.1 g/dL (3.8-4.9); Albumin/Globulin Ratio 1.43 (1.60-3.17); Anion Gap 13.3 mmol/L (10.00-18.00); BUN/Creat Ratio 26.32 Ratio (12.00-20.00); Calcium 9.5 mg/dL (8.7-10.3); Carbon Dioxide 28.3 mmol/L (20.0-27.5); Globulin 2.9 g/dL (1.6-3.3); Magnesium 2.5 mg/dL (1.5-2.4); Non-African American GFR(CKD) 64.3 (60.0-200.0); Potassium 4.1 mmol/L (3.5-5.5); Total Bilirubin 0.3 mg/dL (0.30-1.20)
--- NOTE | 2021-10-30 10:00 | CA ---
Transthoracic Echo Report Name: Krystyna Wade Age: 71 Gender: M : 1950 Exam Date: 10/29/2021 13:40 Exam Location: [facility] Ht (in): 62 Wt (lb): 330 Ordering Physician: Tonya Villanueva Attending/Referring Phys: [place] Repairer Mounika Eng RDCS Procedure CPT: Indications: chf Cardiac Hx: Technical Quality: Fair Contrast 1: Total Dose (mL): Contrast 2: Total Dose (mL): MEASUREMENTS (Male / Female) Normal Values 2D ECHO LV Diastolic Diameter PLAX 4.2 cm 4.2 - 5.9 / 3.9 - 5.3 cm LV Systolic Diameter PLAX 4.2 cm IVS Diastolic Thickness 1.5 cm 0.6 - 1.0 / 0.6 - 0.9 cm LVPW Diastolic Thickness 1.8 cm 0.6 - 1.0 / 0.6 - 0.9 cm LV Relative Wall Thickness 0.8 RV Internal Dim ED PLAX 3.5 cm LA Systolic Diameter LX 5.0 cm 3.0 - 4.0 / 2.7 - 3.8 cm M-MODE Aortic Root Diameter MM 3.2 cm LA Systolic Diameter MM 5.4 cm LA Ao Ratio MM 1.7 MV E Point Septal Separation 0.5 cm AV Cusp Separation MM 2.0 cm DOPPLER MV Area PHT 5.0 cm??? Mitral E Point Velocity 58.8 cm/s Mitral A Point Velocity 63.1 cm/s Mitral E to A Ratio 0.9 MV Deceleration Time 151.0 ms MV E' Velocity 6.3 cm/s Mitral E to MV E' Ratio 9.4 FINDINGS Left Ventricle Left ventricular ejection fraction is estimated at 50-55%. Moderately increased left ventricular wall thickness. Right Ventricle Normal right ventricular size and function. Right Atrium Normal right atrial size. Left Atrium Moderately increased left atrial diameter. Mildly increased left atrial area. Mitral Valve Structurally normal mitral valve. Mild mitral regurgitation. Aortic Valve Aortic valve not well visualized. Aortic valve sclerosis. Tricuspid Valve Structurally normal tricuspid valve. Mild tricuspid regurgitation. Pulmonic Valve Pulmonic valve not well visualized. Pericardium Normal pericardium. Aorta Normal size aortic root and proximal ascending aorta. CONCLUSIONS Technically difficult study for interpretation Concentric left ventricular hypertrophy Normal LV systolic function Previewed by: Dr. Tony Segundo MD (Electronically Signed) Final Date: 30 October 2021 09:59
[2021-10-30 11:04] LABS: Glucose,Whole Blood 141 mg/dL (70-110)
[2021-10-30 13:40] VITALS: BP 134/85; PULSE 74; TEMP 98.4
--- NOTE | 2021-10-30 13:52 | P.PN ---
Subjective Progress Note Date: 10/30/21 This is a very pleasant 71-year-old male patient who follows with Dr. Baum as his primary care provider. He has a history of hypertension, obesity, obstructive sleep apnea, former smoker, BPH. He had recently been having issues with shortness of breath cough and congestion. He was seen at [facility] and treated for pneumonia. CoVID screen was negative. He was given antibiotics. He is in follow-up with his PCP was started him on steroids. He did not have much improvement and presented here to the emergency room for the same. Chest x-ray revealed some diffuse interstitial changes with trace effusions. CT angiogram revealed no evidence of pulmonary embolism. Bilateral pulmonary nodules. Additional mediastinal right pulmonary hilum lymphadenopathy. Cardiomegaly with trace effusions. Hepatic steatosis. White count 8.1. Hemoglobin 13.0. D-dimer 0.81. Sodium 142. Potassium 4.2. BUN 30. Creatinine 1.14. AST 134. ALT 172. Troponins negative 3. ProBNP 981. He was given Lasix 40 mg IVP 1 yesterday. Initiated and DuoNeb inhalations, IV Solu-Medrol, heparin for DVT prophylaxis. He is seen today in consultation on the regular medical floor. He's been up ambulating in the hallway. No acute distress. Maintaining O2 saturations in the 90s on room air. The patient is seen today 10/30/2021 in follow-up on the regular medical floor. He is up ambulating in the hallway. Maintaining good O2 saturations in the 90s on room air. Echocardiogram revealed preserved left ventricular systolic function with an ejection fraction 50-55%. No significant valvular heart disease. Sodium 139. Potassium 4.1. BUN 30. Creatinine 1.1. Glucose 172. AST 37. ALT 115. He is continued on DuoNeb inhalations, IV Solu-Medrol, oral diuretics. Heparin for DVT prophylaxis. Objective - Vital Signs Vital signs: Vital Signs Temp 98.4 F 10/30/21 13:39 Pulse 74 10/30/21 13:39 Resp 18 10/30/21 13:39 BP 134/85 10/30/21 13:39 Pulse Ox 93 L 10/30/21 13:39 FiO2 Intake & Output 10/29/21 10/30/21 10/30/21 18:59 06:59 18:59 Intake Total 600 Balance 600 Intake: Oral 600 Other: Voiding Method Toilet Toilet # Voids 3 3 - Exam GENERAL EXAM: Alert, active, very pleasant obese 71-year-old male patient, on room air, comfortable in no apparent distress. HEAD: Normocephalic. EYES: Normal reaction of pupils, equal size. NOSE: Clear with pink turbinates. THROAT: No erythema or exudates. NECK: No masses, no JVD. CHEST: No chest wall deformity. LUNGS: Equal air entry with faint crackles in the posterior bases CVS: S1 and S2 normal with no audible murmur, regular rhythm. ABDOMEN: No hepatosplenomegaly, normal bowel sounds, no guarding or rigidity. SPINE: No scoliosis or deformity SKIN: No rashes CENTRAL NERVOUS SYSTEM: No focal deficits, tone is normal in all 4 extremities. EXTREMITIES: There is no peripheral edema. No clubbing, no cyanosis. Peripheral pulses are intact. - Labs CBC & Chem 7: 10/28/21 12:29 10/30/21 05:35 Labs: Abnormal Lab Results - Last 24 Hours (Table) 10/29/21 10/29/21 10/30/21 Range/Units 17:06 21:12 05:35 Carbon Dioxide 28.3 H (20.0-27.5) mmol/L BUN 30.0 H (9.0-27.0) mg/dL BUN/Creatinine Ratio 26.32 H (12.00-20.00) Ratio Glucose 172 H (70-110) mg/dL POC Glucose (mg/dL) 165 H 161 H (70-110) mg/dL Magnesium 2.5 H (1.5-2.4) mg/dL AST 37 H (14-35) U/L ALT 115 H (10-49) U/L Albumin/Globulin Ratio 1.43 L (1.60-3.17) g/dL 10/30/21 10/30/21 Range/Units 06:54 11:02 Carbon Dioxide (20.0-27.5) mmol/L BUN (9.0-27.0) mg/dL BUN/Creatinine Ratio (12.00-20.00) Ratio Glucose (70-110) mg/dL POC Glucose (mg/dL) 158 H 141 H (70-110) mg/dL Magnesium (1.5-2.4) mg/dL AST (14-35) U/L ALT (10-49) U/L Albumin/Globulin Ratio (1.60-3.17) g/dL Assessment and Plan Assessment: Dyspnea suspect secondary to diffuse interstitial edema possible CHF Bilateral pulmonary nodules suboptimally evaluated given respiratory motion artifact. Additional mediastinal and right pulmonary hilum lymphadenopathy. Mild transaminitis BPH Hypertension Obesity Plan: The patient was seen and evaluated Labs and medications reviewed Plan is for outpatient computed tomography scan versus PET scan Follow up with Dr. Donovan in 1-2 weeks' I have personally seen and examined the patient, performed the documentation and the assessment and plan as written. Number of minutes spent on the visit: 10.
--- NOTE | 2021-10-31 07:55 | P.DS ---
Providers Date of admission: 10/28/21 17:11 Attending physician: Bulmaro Bolanos Consults: 10/28/21 17:11 Consult Physician Routine Consulting Provider: Simón Donovan Consult Reason/Comments: Possible pulmonary neoplasm, bronchospasm Do you want consulting provider notified?: Yes, Notify in am 10/29/21 15:24 Consult Physician Urgent Consulting Provider: Jarod Barillas Consult Reason/Comments: chf exac Do you want consulting provider notified?: Yes Primary care physician: Devonte Baum Hospital Course: Diagnoses: bilateral pulmonary nodules suspicious for malignancy with hilar and mediastinal lymphadenopathy. COPD with acute exacerbation Mild transaminitis, improving and patient is asymptomatic. Mostly secondary to medication effect. Hypertension History of sleep apnea Benign prostatic hypertrophy Obesity with BMI of 46 Hepatic steatosis Hospital course: This is a pleasant 71 years old male with past medical history of hypertension, sleep apnea, benign prostatic hypertrophy. Patient states that he went to [facility] about 8 days ago complaining of from shortness of breath and coughing with greenish phlegm and he was diagnosed with pneumonia, he was discharge on oral antibiotic, mcc through he was not feeling better so he contacted his PCP Dr. Baum who prescribed him steroid pill, still was not feeling better he decided to come to this facility emergency room. 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 Workup showed Chest CTA: No evidence of PE. Bilateral pulmonary nodules which are suboptimally evaluated given respiratory motion, additional mediastinal and right pulmonary hilar lymphadenopathy. Overall findings suspicious for malignancy with metastatic disease of the right pulmonary hilum. Consider PET/CTs for confirmation cardiomegaly with trace pleural effusions, correlate for CHF. Hepatic steatosis Patient also received treatment with steroids and started on oral Lasix 20 mg twice daily. Patient remains medically stable. Since yesterday and today is fully awake and oriented, he denies any chest pain or dyspnea today. No abdominal pain or vomiting or diarrhea. No dysuria or urgency. No appropriate this morning when I walked into the room, patient was already dressed up stating when he can be discharged as he is eager to go home. Patient is made aware of his lung nodules, risks including but not limited to c ancer are explained for him and he verbalized understanding and acceptance. And he is agreeable to follow-up with his primary doctor and Dr. Hurley within 1-2 weeks for further workup as an outpatient. Patient was cleared for discharge by both cardiology and pulmonary team to go home today. Problems and management plan were discussed with the patient and he verbalized understanding and acceptance Patient was found stable and can be discharged home in guarded prognosis however he needs follow-up as an outpatient. Patient was instructed to follow up with PCP within one week and patient agrees with the appointments made for him on 11/01. Also he agree with the appointments made for him with Dr. Fry on 11/15 and he confirms to me he is going to follow up with him. Patient did not need oxygen upon discharge Physical exam Gen: patient is a AAOx3, no distress CVS: S1-S2, RRR, no murmur Lungs: B/L CTA, no wheezing Abdomen: soft, no distention, no tenderness, positive bowel sounds Extremity: no leg edema or induration Time spent more than 35 minutes Patient Condition at Discharge: Fair Plan - Discharge Summary Discharge Rx Participant: No New Discharge Prescriptions: New Albuterol Inhaler [Ventolin Hfa Inhaler] 2 puff INHALATION RT-Q6H PRN 30 Days #10 ml PRN Reason: Shortness Of Breath Or Wheezing Furosemide [Lasix] 20 mg PO BID@0900,1600 #60 tab Famotidine [Pepcid] 20 mg PO BID #60 tablet predniSONE 10 mg PO DIRECTED #30 tab Continue amLODIPine [Norvasc] 10 mg PO DAILY Dutasteride [Avodart] 0.5 mg PO HS carvediloL [Coreg] 25 mg PO BID Aspirin EC [Ecotrin Low Dose] 81 mg PO DAILY Losartan/Hydrochlorothiazide [Losartan-Hctz 100-25 mg Tab] 1 tab PO DAILY Discontinued Multivitamins, Thera [Multivitamin (formulary)] 1 tab PO DAILY predniSONE See Taper PO DIRECTED Discharge Medication List Dutasteride [Avodart] 0.5 mg PO HS 02/23/18 [History] amLODIPine [Norvasc] 10 mg PO DAILY 02/23/18 [History] carvediloL [Coreg] 25 mg PO BID 02/23/18 [History] Aspirin EC [Ecotrin Low Dose] 81 mg PO DAILY 10/28/21 [History] Losartan/Hydrochlorothiazide [Losartan-Hctz 100-25 mg Tab] 1 tab PO DAILY 10/28/21 [History] Albuterol Inhaler [Ventolin Hfa Inhaler] 2 puff INHALATION RT-Q6H PRN 30 Days #10 ml 10/30/21 [Rx] Famotidine [Pepcid] 20 mg PO BID #60 tablet 10/30/21 [Rx] Furosemide [Lasix] 20 mg PO BID@0900,1600 #60 tab 10/30/21 [Rx] predniSONE 10 mg PO DIRECTED #30 tab 10/30/21 [Rx] Follow up Appointment(s)/Referral(s): Simón Donovan MD [STAFF PHYSICIAN] - 11/15/21 1:30 pm Tony Segundo MD [STAFF PHYSICIAN] - 1 Week (heart doctor. they will call you with appointment) Devonte Baum DO [Primary Care Provider] - 11/01/21 8:15 am (make sure that 11/07 appt was cancelled) Patient Instructions/Handouts: Heart Failure (DC) Activity/Diet/Wound Care/Special Instructions: heart healthy diet activity is restricted till you see your doctor Discharge Disposition: HOME SELF-CARE
== END 2021-10-30 15:26 | disposition home or self-care (01) | DRG 191 ==
LOC: EC 11:43 → 4SSUR 17:11
PROVIDERS: ADMIT Internal Medicine; ATTEND Internal Medicine
DX: J44.1 Chronic obstructive pulmonary disease with (acute) exacerbation (principal); Z68.42 Body mass index [BMI] 45.0-49.9, adult; E66.9 Obesity, unspecified; Z20.822 Contact with and (suspected) exposure to COVID-19; K76.0 Fatty (change of) liver, not elsewhere classified; J98.01 Acute bronchospasm; I11.0 Hypertensive heart disease with heart failure; R74.01 Elevation of levels of liver transaminase levels; R59.1 Generalized enlarged lymph nodes; G47.33 Obstructive sleep apnea (adult) (pediatric); I08.1 Rheumatic disorders of both mitral and tricuspid valves; I50.9 Heart failure, unspecified; Z87.01 Personal history of pneumonia (recurrent); N40.0 Benign prostatic hyperplasia without lower urinary tract symptoms; Z79.82 Long term (current) use of aspirin; Z79.899 Other long term (current) drug therapy; Z87.891 Personal history of nicotine dependence; Z98.42 Cataract extraction status, left eye; Z98.41 Cataract extraction status, right eye
CPT/HCPCS: 36415; 71046; 71275; 80053; 83036; 83605; 83735; 83880; 84145; 84484; 85025; 85379; 85610; 85730; 93005; 93306; 94640; 96374; 96375; 96376; 99285

== ENCOUNTER → 2022-03-06 | Outpatient (CLI) | payer MEDICARE ==
--- NOTE | 2022-03-06 09:09 | CT ---
EXAMINATION TYPE: CT chest w con DATE OF EXAM: 03/06/2022 COMPARISON: CT angiogram chest 10/28/2021 HISTORY: Lung Nodule CT DLP: 1780.8 mGycm Automated exposure control for dose reduction was used. CONTRAST: CT scan of the chest is performed with IV Contrast, patient injected with 75 mL of Isovue 300. FINDINGS: LUNGS: There are 2 pulmonary nodules right lower lobe superior segment measuring 8.5 mm and 7 mm elec tively. Within the left lung there is a left lower lobe 9 mm nodule as well as a 1.1 cm nodule left l ower lobe posteriorly. The lungs are otherwise clear. No additional nodules seen. No evidence for mas s. No evidence for focal infiltrate. MEDIASTINUM: There are no greater than 1 cm hilar or mediastinal lymph nodes. No pericardial effusi on is seen. Thoracic aorta is of normal caliber. The heart is not enlarged. UPPER ABDOMEN: No significant abnormality appreciated. OTHER: No additional significant abnormality is seen. IMPRESSION: 1. Pulmonary nodules as discussed. Further evaluation with PET/CT is recommended.
== END | disposition home or self-care (01) ==
LOC: RADCTMAIN 05:38
PROVIDERS: ATTEND Internal Medicine
DX: R91.8 Other nonspecific abnormal finding of lung field (principal)
CPT/HCPCS: 82565; 84520; 71260; 36415; Q9967

== ENCOUNTER → 2022-07-08 | Outpatient (CLI) | payer MEDICARE ==
--- NOTE | 2022-07-08 14:20 | CT ---
EXAMINATION TYPE: CT chest w con DATE OF EXAM: 07/08/2022 COMPARISON: 03/06/2022 HISTORY: f/u lung nodule CT DLP: 646.20 mGycm Automated exposure control for dose reduction was used. TECHNIQUE: CT scan of the chest is performed with IV Contrast, patient injected with 100 mL of Isovue 300. MIP Images are created on CT scanner and reviewed. 3D reconstructed images are created on an independent workstation and reviewed. FINDINGS: LUNGS: There is a 5 mm nodule right lower lobe stable. There is a 7 mm right lower lobe pulmonary nodule stable. There is a left lower lobe 9 mm nodule stable There is a 1.1 cm nodule left lower lobe posteriorly stable. The lungs are otherwise clear. No additional nodules seen. No evidence for mass. No evidence for foca l infiltrate. MEDIASTINUM: There is a prominent subcarinal lymph node which appears similar to the prior exam measu ring 1.2 x 2.5 x 3.0 cm. Shotty adenopathy in the bilateral jenni and remaining portions of the medias tinum.. No pericardial effusion is seen. Atherosclerotic change of aorta which is of normal calibe r. There is dense coronary artery calcification. OTHER: Changes of hepatic steatosis incidentally noted. Hypertrophic and degenerative changes of the spine. IMPRESSION: 1. There are stable bilateral pulmonary nodules largest seen within the left lower lobe measuring 1.1 cm. This does measure greater than 1 cm and would be a candidate for PET scan. No new nodules are se en. 2. Subcarinal lymphadenopathy is similar and also could BE assessed with PET scan. 3. Hepatic steatosis
== END | disposition home or self-care (01) ==
LOC: RADCTMAIN 11:40
PROVIDERS: ATTEND Internal Medicine
DX: K76.0 Fatty (change of) liver, not elsewhere classified (principal); R59.0 Localized enlarged lymph nodes; R91.8 Other nonspecific abnormal finding of lung field
CPT/HCPCS: 82565; 84520; 71260; 36415; Q9967

== ENCOUNTER → 2023-01-01 | Outpatient (CLI) | payer MEDICARE ==
[2023-01-01 17:39] LABS: Albumin 4.2 d/dL (3.8-4.9); Protein, Total 7.2 d/dL (6.2-8.2)
[2023-01-01 18:02] LABS: Ceruloplasmin 27.9 mg/dL (20.0-60.0)
[2023-01-01 18:06] LABS: Hepatitis B Surface Antigen Nonreactive; Hepatitis C IgG Antibody Nonreactive
[2023-01-02 05:42] LABS: % Iron Saturation 21.76 (15.00-50.00); ALT 41 U/L (10-49); AST 33 U/L (14-35); Albumin 4.1 d/dL (3.8-4.9); Albumin/Globulin Ratio 1.41 Ratio (1.60-3.17); Alkaline Phosphatase 61 U/L (41-126); BUN/Creat Ratio 17.42 Ratio (12.00-20.00); Blood Urea Nitrogen 20.9 mg/dL (9.0-27.0); Calcium 9.7 mg/dL (8.7-10.3); Carbon Dioxide 24.9 mmol/L (21.6-31.8); Chloride 99 mmol/L (96-109); Globulin 2.9 d/dL (1.6-3.3); Glucose 153 mg/dL (70-110); Iron 79 UG/DL (65-175); Potassium 4.5 mmol/L (3.5-5.5); Sodium 143 mmol/L (135-145); Total Bilirubin 0.4 mg/dL (0.3-1.2); Total Iron Binding Capacity 363 UG/DL (228-460)
[2023-01-02 19:09] LABS: Gamma Globulin 1.21 d/dL (0.70-1.50)
== END | disposition home or self-care (01) ==
LOC: LABWHC1 10:31
PROVIDERS: ATTEND Internal Medicine Gastroenterology
DX: R74.8 Abnormal levels of other serum enzymes (principal)
CPT/HCPCS: 36415; 80053; 82103; 82390; 82728; 83516; 83540; 83550; 84165; 86038; 86803; 87340

== ENCOUNTER → 2023-01-03 | Outpatient (CLI) | payer MEDICARE ==
--- NOTE | 2023-01-03 08:39 | US ---
EXAMINATION TYPE: US abdomen complete DATE OF EXAM: 01/03/2023 COMPARISON: NONE CLINICAL INDICATION: Male, 72 years old with history of R74.8 abn levels of serum enzymes; elevated l iver enzymes exam limitations due to body habitus. TECHNIQUE: Multiple sonographic images of the abdomen are obtained. 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 There i s no evidence of cholelithiasis. Common bile duct is unremarkable. The visualized portions of the p ancreas are homogenous. The spleen is unremarkable. Kidneys are symmetric and free of hydronephrosi s. No renal lesions are seen. IMPRESSION: Hepatomegaly with mild underlying hepatic steatosis.
== END | disposition home or self-care (01) ==
LOC: RADUSWWP 07:08
PROVIDERS: ATTEND Internal Medicine Gastroenterology
DX: K76.0 Fatty (change of) liver, not elsewhere classified (principal); R74.8 Abnormal levels of other serum enzymes; R16.0 Hepatomegaly, not elsewhere classified
CPT/HCPCS: 76700

== ENCOUNTER → 2023-01-14 | Outpatient (CLI) | payer MEDICARE ==
[2023-01-14 15:34] LABS: Basophils # (A) 0.08 X 10*3/uL (0.00-0.10); Eosinophils # (A) 0.22 X 10*3/uL (0.04-0.35); Eosinophils % (A) 2.8 %; HCT 46.8 % (39.6-50.0); HGB 15.2 d/dL (13.0-17.0); Lymphocytes # (A) 1.36 X 10*3/uL (0.90-5.00); Lymphocytes % (A) 17.6 %; MCH 30.5 pg (27.0-32.0); MCHC 32.5 d/dL (32.0-37.0); MCV 93.8 FL (80.0-97.0); Mean Platelet Volume 10.3 FL (9.5-12.2); Monocytes % (A) 7.8 %; NRBC Per 100 WBC 0 X 10*3/uL (0.00-0.01); Neutrophils # (A) 5.45 X 10*3/uL (1.80-7.70); Neutrophils % (A) 70.5 %; Platelet Count 225 X 10*3/uL (140-440); RBC 4.99 X 10*6/uL (4.40-5.60); RDW 13.7 % (11.5-14.5); WBC 7.73 X 10*3/uL (4.50-10.00)
== END | disposition home or self-care (01) ==
LOC: LABWHC1 09:48
PROVIDERS: ATTEND Internal Medicine Gastroenterology
DX: R74.8 Abnormal levels of other serum enzymes (principal)
CPT/HCPCS: 36415; 85025

== ENCOUNTER → 2023-01-29 | Outpatient (CLI) | payer MEDICARE ==
[2023-01-29 08:55] LABS: African American GFR (CKD) 77 (>60 ml/min/1.73 sqM); Blood Urea Nitrogen 26 mg/dL (9-20); Non-African American GFR(CKD) 66 (>60 ml/min/1.73 sqM)
--- NOTE | 2023-01-29 12:12 | CT ---
EXAMINATION TYPE: CT chest w con DATE OF EXAM: 01/29/2023 COMPARISON: 07/08/2022 and 03/06/2022 HISTORY: 72-year-old male R91.8 OTHER NONSPECIFIC ABNORMAL FINDING OF LUNG F. Abnormal findings on lung giron, follow up, no noted concerns. TECHNIQUE: Contiguous axial scanning of the chest after the administration of 100 mL of Isovue 300. Coronal/sagittal reconstructions performed. CT DLP: 866mGycm. Automatic exposure control utilized for a dose reduction. FINDINGS: The heart is normal size without pericardial effusion. LAD and RCA coronary artery calcifications are present. Borderline aneurysm aortic root and ascending aorta at 4.0 cm, unchanged. Conventional arch vessel branching anatomy. Scattered small mediastinal lymph nodes are unchanged. Right hilar lymph nodes measuring up to 1.4 cm remain unchanged, likely reactive/post inflammatory. Left hilar lymph nodes up to 1.2 cm are unchanged. Stable subcarinal lymph node at 1.2 cm. No progressive thoracic lymphadenopathy. There is moderate diffuse bronchial wall thickening. No consolidation or pleural effusion. 3 mm right upper lobe pulmonary nodule is unchanged. A couple posterior right mid lung pulmonary nodules measuring up to 1.4 cm are unchanged. 1.3 cm posterior left lower lobe pulmonary nodule is unchanged. 1.0 cm lateral left midlung pulmonary nodule is unchanged. Visualized upper abdomen shows low attenuation of the hepatic parenchyma suggesting fatty infiltratio n. 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 IMPRESSION: 1. A number of pulmonary nodules measuring up to 1.4 cm remain unchanged for 11 months. This favors a benign etiology. Recommend an additional one-year surveillance follow-up exam to ensure more long-te rm stability. 2. Moderate bronchial wall thickening suggests bronchitis or chronic asthma. Some borderline to mildl y enlarged hilar lymph nodes measuring up to 1.4 cm are also stable suggesting a benign reactive/infl ammatory etiology. 3. Incidental hepatic steatosis.
== END | disposition home or self-care (01) ==
LOC: RADCTMAIN 08:17
PROVIDERS: ATTEND Internal Medicine
DX: J98.09 Other diseases of bronchus, not elsewhere classified (principal); R91.8 Other nonspecific abnormal finding of lung field; R59.0 Localized enlarged lymph nodes
CPT/HCPCS: 82565; 84520; 71260; 36415; Q9967

== ENCOUNTER 2023-10-07 12:56 | Inpatient (IN) | payer MEDICARE ==
[2023-10-07 13:41] LABS: Basophils % (A) 1 %; Eosinophils # (A) 0.1 k/uL (0-0.7); Eosinophils % (A) 2 %; HCT 37.8 % (39.0-53.0); HGB 12.7 gm/dL (13.0-17.5); Lymphocytes # (A) 0.9 k/uL (1.0-4.8); Lymphocytes % (A) 14 %; MCH 31.5 pg (25.0-35.0); MCHC 33.5 g/dL (31.0-37.0); Mean Platelet Volume 8.1; Monocytes # (A) 0.3 k/uL (0-1.0); Monocytes % (A) 5 %; Neutrophils # (A) 4.6 k/uL (1.3-7.7); Neutrophils % (A) 76 %; Platelet Count 187 k/uL (150-450); RBC 4.03 m/uL (4.30-5.90); RDW 14.9 % (11.5-15.5)
[2023-10-07] MEDS: MORPHINE SULFATE 4 MG/ML SYRINGE IVP STA (13:42)
--- NOTE | 2023-10-07 13:48 | XR ---
EXAMINATION TYPE: XR chest 2V DATE OF EXAM: 10/07/2023 COMPARISON: 10/28/2021 HISTORY: Shortness of breath TECHNIQUE: Frontal and lateral views of the chest are obtained. FINDINGS: Scattered senescent parenchymal changes noted. No evidence for infiltrate. No evidence for atelectasis. Heart size is stable. Mediastinal structures are stable and grossly unremarkable. No evidence for hilar prominence. Degenerative changes dorsal spine. IMPRESSION: 1. No evidence for acute pulmonary disease.
[2023-10-07 13:57] LABS: ALT 84 U/L (4-49); AST 63 U/L (17-59); African American GFR (CKD) 81 (>60 ml/min/1.73 sqM); Albumin 4.1 g/dL (3.5-5.0); Alkaline Phosphatase 62 U/L (38-126); Anion Gap 10 mmol/L; Blood Urea Nitrogen 27 mg/dL (9-20); Calcium 9.2 mg/dL (8.4-10.2); Carbon Dioxide 28 mmol/L (22-30); Chloride 104 mmol/L (98-107); Glucose 134 mg/dL (74-99); Non-African American GFR(CKD) 70 (>60 ml/min/1.73 sqM); Potassium 3.5 mmol/L (3.5-5.1); Sodium 142 mmol/L (137-145); Total Bilirubin 1.3 mg/dL (0.2-1.3); Total Protein 7.3 g/dL (6.3-8.2)
[2023-10-07 13:58] LABS: INR 1.1 (<1.2); Partial Thromboplastin Time 23.6 sec (22.0-30.0); Prothrombin Time 12.1 sec (10.0-12.5)
--- NOTE | 2023-10-07 14:59 | CT ---
EXAMINATION TYPE: CT chest angio for PE CT DLP: mGycm, Automated exposure control for dose reduction was used. DATE OF EXAM: 10/07/2023 2:27 PM COMPARISON: Previous chest CT of 01/29/2023. CLINICAL INDICATION:Male, 73 years old with history of syncope, chest pain; syncope, chest pain TECHNIQUE/CONTRAST: CTA scan of the thorax is performed with IV Contrast, patient injected with 100 mL of Isovue 370, MIP images are created and reviewed these are created on a separate workstation.. FINDINGS: Pulmonary Artery: There is no evidence for a filling defect within the pulmonary vasculature to sugge st acute pulmonary embolism. The pulmonary artery is of normal size. Lungs/Pleura: No evidence of focal consolidation, pleural effusion or pneumothorax. A stable 12.7 mm solid lung nodule is seen in the posterior left lower lobe. Stable pleural-based 7 mm nodule on im age 77 series 401. Stable right lower lobe pulmonary nodule measuring 14 mm on image 77 series 401 Airway: Large airways are patent. Heart: Heart is within normal limits for size. Vasculature: No evidence of aortic aneurysm. Mediastinum: No gross evidence of adenopathy. Musculoskeletal: No acute osseous abnormalities Soft Tissues: Unremarkable. Lower neck: No significant findings. Upper Abdomen: No significant findings. IMPRESSION: 1. No evidence of pulmonary embolism. 2. 2 right lung nodules and one left lung nodules are reidentified. These are stable compared to 01/15. If these are hypermetabolic, they would most likely be seen on PET scan. Follow up recommendations for incidental pulmonary nodules, if there are any, are per [employer] or [employer] [place] [employer]. https://radiopaedia.org/articles/zjpbsqoing-eydslgx-[email or web address]?lang=us
--- NOTE | 2023-10-07 15:09 | CT ---
EXAMINATION TYPE: CT abdomen pelvis w con CT DLP: mGycm, Automated exposure control for dose reduction was used. DATE OF EXAM: 10/07/2023 2:27 PM COMPARISON: CT abdomen pelvis most recent from CLINICAL INDICATION:Male, 73 years old with history of abd pain, syncope; abd pain, syncope TECHNIQUE: Axial CT abdomen pelvis w con;Sagittal and coronal reformats were created on a separate w orkstation. Contrast used:100 mL of Isovue 370 with IV Contrast, (none if empty) Oral contrast used: without Oral Contrast (none if empty) FINDINGS: LOWER CHEST: Unremarkable ABDOMEN LIVER: Unremarkable GALLBLADDER AND BILE DUCTS: Unremarkable. PANCREAS: Unremarkable. SPLEEN: Unremarkable. ADRENAL GLANDS: Unremarkable. KIDNEYS AND URETERS: No evidence of hydronephrosis or renal calculus. The ureters are unremarkable. PELVIS BLADDER: Unremarkable REPRODUCTIVE: Unremarkable. ABDOMEN & PELVIS STOMACH AND BOWEL: No evidence of bowel obstruction. PERITONEUM/RETROPERITONEUM: No evidence of pneumoperitoneum or free fluid. VASCULATURE: No evidence of aortic aneurysm. MUSCULOSKELETAL: No acute osseous abnormalities LYMPH NODES: No gross evidence for lymphadenopathy. SOFT TISSUE/ABDOMINAL WALL: Unremarkable IMPRESSION: 1. No acute process.
--- NOTE | 2023-10-07 15:11 | ED ---
General Adult HPI - General Chief complaint: Syncope Stated complaint: Syncope Time Seen by Provider: 10/07/23 13:10 Source: patient Mode of arrival: ambulatory Limitations: no limitations - History of Present Illness Initial comments: 73-year-old male with medical history of hypertension who presents emergency department after he had 2 syncopal episodes. It was reported that the patient has had some chest discomfort since Friday. Today the patient was in his backyard when he had a syncopal episode. He was found by his sister. Patient was only out for short period of time before he started coming to. He did not want to go to the hospital. His son came over and forced him to go. He states that in the vehicle he ended up having a second syncopal episode. Patient arrives and continues to have some chest discomfort. States is in the epigastric region and radiates to his back. He has associated nausea with 1 episode of vomiting. He has mild shortness of breath. No history of similar in the past. He did have a stress test 8 years ago which she states was negative. No history of coronary disease. He denies fevers, chills or cough. Also admits to a mid abdominal pain. No numbness, tingling or weakness in his extremities. Patient denies any injuries from the syncopal episode. No headache or visual changes. No neck or back pain. No other alleviating, precipitating or modifying factors - Related Data Home Medications Medication Instructions Recorded Confirmed Dutasteride [Avodart] 0.5 mg PO DAILY 02/23/18 10/07/23 carvediloL [Coreg] 25 mg PO BID 02/23/18 10/07/23 Losartan/Hydrochlorothiazide 1 tab PO DAILY 10/28/21 10/07/23 [Losartan-Hctz 100-25 mg Tab] Furosemide [Lasix] 20 mg PO DAILY 10/07/23 10/07/23 Multivitamins, Thera [Multivitamin 1 tab PO HS 10/07/23 10/07/23 (formulary)] Allergies Allergy/AdvReac Type Severity Reaction Status Date / Time No Known Allergies Allergy Verified 10/07/23 15:00 Review of Systems ROS Statement: Those systems with pertinent positive or pertinent negative responses have been documented in the HPI. ROS Other: All systems not noted in ROS Statement are negative. Past Medical History Past Medical History: Hypertension, Sleep Apnea/CPAP/BIPAP Additional Past Medical History / Comment(s): BPH, ELECTROCUTED IN 1991- BODY ACHES. History of Any Multi-Drug Resistant Organisms: None Reported Additional Past Surgical History / Comment(s): CATARACTS Past Anesthesia/Blood Transfusion Reactions: No Reported Reaction Past Psychological History: No Psychological Hx Reported Smoking Status: Former smoker Past Alcohol Use History: Occasional Past Drug Use History: None Reported - Past Family History Mother Family Medical History: No Reported History Father Family Medical History: Congestive Heart Failure (CHF) General Exam Limitations: no limitations General appearance: alert, in no apparent distress Head exam: Present: atraumatic, normocephalic, normal inspection Eye exam: Present: normal appearance, PERRL, EOMI. Absent: scleral icterus, conjunctival injection, periorbital swelling ENT exam: Present: normal exam, mucous membranes moist Neck exam: Present: normal inspection. Absent: tenderness, meningismus, lymphadenopathy Respiratory exam: Present: normal lung sounds bilaterally. Absent: respiratory distress, wheezes, rales, rhonchi, stridor Cardiovascular Exam: Present: tachycardia, irregular rhythm, normal heart sounds. Absent: systolic murmur, diastolic murmur, rubs, gallop, clicks GI/Abdominal exam: Present: soft, normal bowel sounds. Absent: distended, tenderness, guarding, rebound, rigid Extremities exam: Present: normal inspection, full ROM, normal capillary refill. Absent: tenderness, pedal edema, joint swelling, calf tenderness Back exam: Present: normal inspection Neurological exam: Present: alert, oriented X3, CN II-XII intact Psychiatric exam: Present: normal affect, normal mood Skin exam: Present: warm, dry, intact, normal color. Absent: rash Course Vital Signs 10/07/23 10/07/23 10/07/23 12:57 13:30 13:40 Temperature 97.4 F L Pulse Rate 103 H 133 H 120 H Respiratory 20 21 17 Rate Blood Pressure 119/89 104/91 104/91 O2 Sat by Pulse 95 89 L 92 L Oximetry 10/07/23 10/07/23 10/07/23 13:50 14:10 14:29 Temperature 98.0 F Pulse Rate 140 H 141 H 137 H Respiratory 17 18 22 Rate Blood Pressure 115/74 97/77 131/106 O2 Sat by Pulse 96 94 L 95 Oximetry 10/07/23 10/07/23 10/07/23 14:30 14:40 14:50 Temperature Pulse Rate 137 H 138 H 137 H Respiratory 13 17 10 L Rate Blood Pressure 131/106 127/85 O2 Sat by Pulse 95 92 L 95 Oximetry 10/07/23 10/07/23 10/07/23 15:00 15:10 15:20 Temperature Pulse Rate 130 H 138 H 138 H Respiratory 20 10 L 7 L Rate Blood Pressure 127/85 114/96 119/85 O2 Sat by Pulse 94 L 92 L 93 L Oximetry 10/07/23 10/07/23 10/07/23 15:30 15:40 15:50 Temperature Pulse Rate 137 H 138 H 138 H Respiratory 0 L 29 H 7 L Rate Blood Pressure 115/104 115/104 119/87 O2 Sat by Pulse 93 L 90 L 94 L Oximetry Medical Decision Making - Medical Decision Making Was pt. sent in by a medical professional or institution (, PA, NEUROPHYSIOLOGY TECH, urgent care, hospital, or penitentiary...) When possible be specific @ -No Did you speak to anyone other than the patient for history (EMS, parent, family, police, friend...)? What history was obtained from this source @ -Spoke with the patient's son for history Did you review nursing and triage notes (agree or disagree)? Why? @ -I reviewed and agree with nursing and triage notes Were old charts reviewed (outside hosp., previous admission, EMS record, old EKG, old radiological studies, urgent care reports/EKG's, penitentiary records)? Report findings @ -No old charts were reviewed Differential Diagnosis (chest pain, altered mental status, abdominal pain women, abdominal pain men, vaginal bleeding, weakness, fever, dyspnea, syncope, headache, dizziness, GI bleed, back pain, seizure, CVA, palpatations, mental health, musculoskeletal)? @ -Differential Syncope: Valvular disease, hypertrophic cardiomyopathy, pulmonary embolism, tamponade, tachycardia, bradycardia, [place], hypovolemia, hemorrhage, dissection, anemia, intracranial hemorrhage, seizure, hypoglycemia, carbon monoxide poisoning, this is not meant to be an all-inclusive list. EKG interpreted by me (3pts min.). @ -Yes and demonstrates atrial flutter with a rate of 133. QRS 119. QTc of 435. No acute ST segment elevations or depressions X-rays interpreted by me (1pt min.). @ -Not done CT interpreted by me (1pt min.). @ -Yes and demonstrates no acute process in the chest, abdomen or pelvis U/S interpreted by me (1pt. min.). @ -None done What testing was considered but not performed or refused? (CT, X-rays, U/S, labs)? Why? @ -None What meds were considered but not given or refused? Why? @ -None Did you discuss the management of the patient with other professionals (professionals i.e. DrSarah Beth, PA, NEUROPHYSIOLOGY TECH, lab, RT, psych nurse, social sciences department chair, special assemblies supervisor, teacher, national insurance officer, pillowcase sewer)? Give summary @ -Spoke with Chelsey from [facility] will admit the patient Was smoking cessation discussed for >3mins.? @ -No Was critical care preformed (if so, how long)? @ -Yes, 40 minutes for management of rapid A-fib Were there social determinants of health that impacted care today? How? (Homelessness, low income, unemployed, alcoholism, drug addiction, transportation, low edu. Level, literacy, decrease access to med. care, care home, rehab)? @ -No Was there de-escalation of care discussed even if they declined (Discuss DNR or withdrawal of care, Hospice)? DNR status @ -No What co-morbidities impacted this encounter? (DM, HTN, Smoking, COPD, CAD, Cancer, CVA, ARF, Chemo, Hep., AIDS, mental health diagnosis, sleep apnea, morbid obesity)? @ -Hypertension Was patient admitted / discharged? Hospital course, mention meds given and route, prescriptions, significant lab abnormalities, going to OR and other pertinent info. @ -Upon arrival patient seen and evaluated in room 4. Thorough history and physical exam was performed. Patient placed on continuous pulse ox and cardiac monitoring. Twelve-lead EKG was obtained which demonstrates A-fib with rapid rate. Laboratory studies are conducted. Patient does have mildly elevated troponin at this time. CT was performed which does rule out PE. Patient will be initiated on Cardizem and heparin drip. He will be admitted for cardiology consultation. Spoke with Chelsey from [facility] will admit the patient. Patient remained in stable condition awaiting a bed on the floor Undiagnosed new problem with uncertain prognosis? @ -No Drug Therapy requiring intensive monitoring for toxicity (Heparin, Nitro, Insulin, Cardizem)? @ -No Were any procedures done? @ -No Diagnosis/symptom? @ -Acute syncope x 2, new onset A-fib, troponin elevation Acute, or Chronic, or Acute on Chronic? @ -Acute Uncomplicated (without systemic symptoms) or Complicated (systemic symptoms)? @ -complicated Side effects of treatment? @ -No Exacerbation, Progression, or Severe Exacerbation? @ -No Poses a threat to life or bodily function? How? (Chest pain, [place], [place], pneumonia, PE, COPD, DKA, ARF, appy, cholecystitis, CVA, Diverticulitis, Homicidal, Suicidal, threat to staff... and all critical care pts) @ -Yes as patient has rapid heart rate - Lab Data Result diagrams: 10/07/23 13:27 10/07/23 13:27 Lab Results 10/07/23 10/07/23 10/07/23 Range/Units 13:27 13:27 13:27 WBC 6.0 (3.8-10.6) k/uL RBC 4.03 L (4.30-5.90) m/uL Hgb 12.7 L (13.0-17.5) gm/dL Hct 37.8 L (39.0-53.0) % MCV 94.0 (80.0-100.0) fL MCH 31.5 (25.0-35.0) pg MCHC 33.5 (31.0-37.0) g/dL RDW 14.9 (11.5-15.5) % Plt Count 187 (150-450) k/uL MPV 8.1 Neutrophils % 76 % Lymphocytes % 14 % Monocytes % 5 % Eosinophils % 2 % Basophils % 1 % Neutrophils # 4.6 (1.3-7.7) k/uL Lymphocytes # 0.9 L (1.0-4.8) k/uL Monocytes # 0.3 (0-1.0) k/uL Eosinophils # 0.1 (0-0.7) k/uL Basophils # 0.0 (0-0.2) k/uL PT 12.1 (10.0-12.5) sec INR 1.1 (<1.2) APTT 23.6 (22.0-30.0) sec D-Dimer 1.99 H (<0.60) mg/L FEU Sodium 142 (137-145) mmol/L Potassium 3.5 (3.5-5.1) mmol/L Chloride 104 (98-107) mmol/L Carbon Dioxide 28 (22-30) mmol/L Anion Gap 10 mmol/L BUN 27 H (9-20) mg/dL Creatinine 1.06 (0.66-1.25) mg/dL Est GFR (CKD-EPI)AfAm 81 (>60 ml/min/1.73 sqM) Est GFR (CKD-EPI)NonAf 70 (>60 ml/min/1.73 sqM) Glucose 134 H (74-99) mg/dL Calcium 9.2 (8.4-10.2) mg/dL Total Bilirubin 1.3 (0.2-1.3) mg/dL AST 63 H (17-59) U/L ALT 84 H (4-49) U/L Alkaline Phosphatase 62 (38-126) U/L Troponin I (0.000-0.034) ng/mL Total Protein 7.3 (6.3-8.2) g/dL Albumin 4.1 (3.5-5.0) g/dL Lipase (23-300) U/L 10/07/23 10/07/23 Range/Units 13:27 13:27 WBC (3.8-10.6) k/uL RBC (4.30-5.90) m/uL Hgb (13.0-17.5) gm/dL Hct (39.0-53.0) % MCV (80.0-100.0) fL MCH (25.0-35.0) pg MCHC (31.0-37.0) g/dL RDW (11.5-15.5) % Plt Count (150-450) k/uL MPV Neutrophils % % Lymphocytes % % Monocytes % % Eosinophils % % Basophils % % Neutrophils # (1.3-7.7) k/uL Lymphocytes # (1.0-4.8) k/uL Monocytes # (0-1.0) k/uL Eosinophils # (0-0.7) k/uL Basophils # (0-0.2) k/uL PT (10.0-12.5) sec INR (<1.2) APTT (22.0-30.0) sec D-Dimer (<0.60) mg/L FEU Sodium (137-145) mmol/L Potassium (3.5-5.1) mmol/L Chloride (98-107) mmol/L Carbon Dioxide (22-30) mmol/L Anion Gap mmol/L BUN (9-20) mg/dL Creatinine (0.66-1.25) mg/dL Est GFR (CKD-EPI)AfAm (>60 ml/min/1.73 sqM) Est GFR (CKD-EPI)NonAf (>60 ml/min/1.73 sqM) Glucose (74-99) mg/dL Calcium (8.4-10.2) mg/dL Total Bilirubin (0.2-1.3) mg/dL AST (17-59) U/L ALT (4-49) U/L Alkaline Phosphatase (38-126) U/L Troponin I 0.036 H* (0.000-0.034) ng/mL Total Protein (6.3-8.2) g/dL Albumin (3.5-5.0) g/dL Lipase 40 (23-300) U/L Disposition Clinical Impression: New onset a-fib, Syncope, Elevated troponin Disposition: ADMITTED IP TO THIS [facility] Condition: Serious Is patient prescribed a controlled substance at d/c from ED?: No Referrals: Devonte Baum DO [Primary Care Provider] - 1-2 days Time of Disposition: 16:05 Decision to Admit Reason: Admit from EC Decision Date: 10/07/23 Decision Time: 16:05
[2023-10-07] MEDS ORDERED: DILTIAZEM 125 MG in SODIUM CHLORIDE 0.9% 100 ML IV SCH ×2 (16:00→17:00)
[2023-10-07] MEDS ORDERED: NALOXONE 0.4 MG/ML 1 ML VIAL IV PRN (16:06)
[2023-10-07] MEDS: HEPARIN SODIUM 1,000 UN/ML (10ML VL) IV ONE (16:30)
[2023-10-07] MEDS: HEPARIN SOD,PORK IN 0.45% NACL 25,000 UNIT in 0.45% NACL 1 250ML.BAG IV SCH (16:31)
[2023-10-07] MEDS: ATORVASTATIN 40 MG TAB PO STA (16:32)
[2023-10-07 16:39] LABS: Magnesium 1.9 mg/dL (1.6-2.3)
[2023-10-07] MEDS: MAGNESIUM SULFATE-D5W PMX 1 GM in DEXTROSE/WATER 1 100ML.BAG IVPB SCH (16:57)
[2023-10-07] MEDS: DILTIAZEM 125 MG in SODIUM CHLORIDE 0.9% 100 ML IV SCH (17:40)
[2023-10-07] MEDS: DILTIAZEM DRIP BOLUS FROM BAG 1 MG SOLN IV ONE (17:43)
[2023-10-07] MEDS: MULTIVITAMINS, THERA 1 EACH TAB PO SCH (20:09)
[2023-10-08 08:34] LABS: Basophils # (A) 0.1 k/uL (0-0.2); Basophils % (A) 1 %; Eosinophils # (A) 0.1 k/uL (0-0.7); Eosinophils % (A) 2 %; HCT 40.5 % (39.0-53.0); HGB 12.9 gm/dL (13.0-17.5); Hypochromasia Slight; Lymphocytes % (A) 15 %; MCH 30.9 pg (25.0-35.0); MCHC 31.8 g/dL (31.0-37.0); MCV 97.2 fL (80.0-100.0); Mean Platelet Volume 8.6; Monocytes # (A) 0.4 k/uL (0-1.0); Monocytes % (A) 6 %; Neutrophils # (A) 5.1 k/uL (1.3-7.7); Neutrophils % (A) 75 %; Platelet Count 200 k/uL (150-450); RBC 4.17 m/uL (4.30-5.90); RDW 15.3 % (11.5-15.5); WBC 6.8 k/uL (3.8-10.6)
[2023-10-08 08:42] LABS: INR 1.1 (<1.2); Prothrombin Time 12.2 sec (10.0-12.5)
[2023-10-08 08:45] LABS: African American GFR (CKD) 89 (>60 ml/min/1.73 sqM); Anion Gap 7 mmol/L; Blood Urea Nitrogen 23 mg/dL (9-20); Carbon Dioxide 33 mmol/L (22-30); Chloride 102 mmol/L (98-107); Glucose 134 mg/dL (74-99); Non-African American GFR(CKD) 77 (>60 ml/min/1.73 sqM); Potassium 3.3 mmol/L (3.5-5.1); Sodium 142 mmol/L (137-145)
[2023-10-08] MEDS: ASPIRIN 81 MG PO SCH (10:27)
[2023-10-08] MEDS: METOPROLOL TARTRATE 50 MG TAB PO SCH (10:27)
--- NOTE | 2023-10-08 12:17 | P.HPIM ---
History of Present Illness Pleasant 73-year-old male came in after he had syncopal episodes found to be in atrial fibrillation with rapid ventricular rate. Patient was started on Cardizem still on Cardizem 5 mg did not have any history of atrial fibrillation in the past patient was started on anticoagulation with heparin positive troponin is minimally elevated to 0.03 patient also has chest pressure-like sensation, he EKG showed some nonspecific T wave changes in inferior leads. Cardiology evaluate the patient plan is for cardiac catheterization tomorrow. Patient had any fever chills nausea vomiting. AST and ALT are minimally elevated to 63 and [address] angio of the chest abdominal pelvic CT all of which are essentially within normal limits no evidence of congestive heart failure at this time. REVIEW OF SYSTEMS: All other systems are negative except those mentioned in the HPI PHYSICAL EXAMINATION: GENERAL: The patient is alert and oriented x3, not in any acute distress. Well developed, well nourished. HEENT: Pupils are round and equally reacting to light. EOMI. No scleral icterus. No conjunctival pallor. Normocephalic, atraumatic. No pharyngeal erythema. No thyromegaly. CARDIOVASCULAR: S1 and S2 present. No murmurs, rubs, or gallops. PULMONARY: Chest is clear to auscultation, no wheezing or crackles. ABDOMEN: Soft, nontender, nondistended, normoactive bowel sounds. No palpable organomegaly. MUSCULOSKELETAL: No joint swelling or deformity. EXTREMITIES: No cyanosis, clubbing, or pedal edema. NEUROLOGICAL: Gross neurological examination did not reveal any focal deficits. SKIN: No rashes. Assessment and plan -Atrial fibrillation with rapid ventricular rate presently rate controlled still in A-fib on Cardizem and heparin which will be continued cardiology evaluate the patient patient is also started on beta-shawn at this time -Minimally elevated troponins with EKG changes and chest pressure: Possibility of acute coronary syndromes cannot be ruled out patient will undergo cardiac catheterization tomorrow heparin is being continued at this time -Hypertension hold off on losartan hydrochlorothiazide as patient is on Cardizem at this time -Benign prostatic hypertrophy -Sleep apnea uses CPAP machine at home DVT prophylaxis: On IV heparin Past Medical History Past Medical History: Hypertension, Sleep Apnea/CPAP/BIPAP Additional Past Medical History / Comment(s): BPH, ELECTROCUTED IN 1985- BODY ACHES. History of Any Multi-Drug Resistant Organisms: None Reported Additional Past Surgical History / Comment(s): CATARACTS, ABD surgery from electrocution Past Anesthesia/Blood Transfusion Reactions: No Reported Reaction Past Psychological History: No Psychological Hx Reported Smoking Status: Former smoker Past Alcohol Use History: Occasional Additional Past Alcohol Use History / Comment(s): SMOKED TEEN- QUIT 1968 Past Drug Use History: None Reported - Past Family History Mother Family Medical History: No Reported History Father Family Medical History: Congestive Heart Failure (CHF) Medications and Allergies Home Medications Medication Instructions Recorded Confirmed Type Dutasteride [Avodart] 0.5 mg PO DAILY 02/23/18 10/07/23 History carvediloL [Coreg] 25 mg PO BID 02/23/18 10/07/23 History Losartan/Hydrochlorothiazide 1 tab PO DAILY 10/28/21 10/07/23 History [Losartan-Hctz 100-25 mg Tab] Furosemide [Lasix] 20 mg PO DAILY 10/07/23 10/07/23 History Multivitamins, Thera [Multivitamin 1 tab PO HS 10/07/23 10/07/23 History (formulary)] Allergies Allergy/AdvReac Type Severity Reaction Status Date / Time No Known Allergies Allergy Verified 10/07/23 15:00 Physical Exam Vitals: Vital Signs Temp Pulse Pulse Resp BP BP Pulse Ox 10/08/23 11:46 72 18 127/84 92 L 10/08/23 08:00 97.6 F 83 18 121/70 93 L 10/08/23 04:00 138/90 10/08/23 02:00 80 16 10/08/23 00:00 97.7 F 80 16 134/91 92 L 10/07/23 21:05 97.4 F L 108 H 18 129/87 98 10/07/23 20:00 105 H 12 113/92 94 L 10/07/23 19:00 122 H 17 124/92 93 L 10/07/23 18:00 98.1 F 88 20 121/76 91 L 10/07/23 17:40 130 H 18 120/81 92 L 10/07/23 16:00 96.9 F L 93 20 116/76 94 L 10/07/23 15:50 138 H 7 L 119/87 94 L 10/07/23 15:40 138 H 29 H 115/104 90 L 10/07/23 15:30 137 H 0 L 115/104 93 L 10/07/23 15:20 138 H 7 L 119/85 93 L 10/07/23 15:10 138 H 10 L 114/96 92 L 10/07/23 15:00 130 H 20 127/85 94 L 10/07/23 14:50 137 H 10 L 127/85 95 10/07/23 14:40 138 H 17 131/106 92 L 10/07/23 14:30 137 H 13 95 10/07/23 14:29 98.0 F 137 H 22 131/106 95 10/07/23 14:10 141 H 18 97/77 94 L 10/07/23 13:50 140 H 17 115/74 96 10/07/23 13:40 120 H 17 104/91 92 L 10/07/23 13:30 133 H 21 104/91 89 L 10/07/23 12:57 97.4 F L 103 H 20 119/89 95 Intake and Output 10/07/23 10/08/23 10/08/23 22:59 06:59 14:59 Intake Total 0 270.802 Balance 0 270.802 Intake: Intake, IV Titration 270.802 Amount Diltiazem 125 mg In 84.083 Sodium Chloride 0.9% 100 ml @ 5 MG/HR 5 mls/hr IV .Q24H VALDO Rx#:[id number] Heparin Sod,Pork in 0.45% 186.719 NaCl 25,000 unit In 0.45 % NaCl 1 250ml.bag @ 6. 889 UNITS/KG/HR 9.999 mls /hr IV .Q24H VALDO Rx#: [id number] Oral 0 0 Other: Voiding Method Toilet Weight 145.15 kg 145.8 kg Results CBC & Chem 7: 10/08/23 07:41 10/08/23 07:41 Labs: Abnormal Lab Results - Last 24 Hours (Table) 10/07/23 10/07/23 10/07/23 Range/Units 13:27 13:27 13:27 RBC 4.03 L (4.30-5.90) m/uL Hgb 12.7 L (13.0-17.5) gm/dL Hct 37.8 L (39.0-53.0) % Lymphocytes # 0.9 L (1.0-4.8) k/uL APTT (22.0-30.0) sec D-Dimer 1.99 H (<0.60) mg/L FEU Potassium (3.5-5.1) mmol/L Carbon Dioxide (22-30) mmol/L BUN 27 H (9-20) mg/dL Glucose 134 H (74-99) mg/dL AST 63 H (17-59) U/L ALT 84 H (4-49) U/L Troponin I (0.000-0.034) ng/mL 10/07/23 10/07/23 10/08/23 Range/Units 13:27 21:48 07:41 RBC 4.17 L (4.30-5.90) m/uL Hgb 12.9 L (13.0-17.5) gm/dL Hct (39.0-53.0) % Lymphocytes # (1.0-4.8) k/uL APTT 36.1 H (22.0-30.0) sec D-Dimer (<0.60) mg/L FEU Potassium (3.5-5.1) mmol/L Carbon Dioxide (22-30) mmol/L BUN (9-20) mg/dL Glucose (74-99) mg/dL AST (17-59) U/L ALT (4-49) U/L Troponin I 0.036 H* (0.000-0.034) ng/mL 10/08/23 10/08/23 Range/Units 07:41 07:41 RBC (4.30-5.90) m/uL Hgb (13.0-17.5) gm/dL Hct (39.0-53.0) % Lymphocytes # (1.0-4.8) k/uL APTT 31.0 H (22.0-30.0) sec D-Dimer (<0.60) mg/L FEU Potassium 3.3 L (3.5-5.1) mmol/L Carbon Dioxide 33 H (22-30) mmol/L BUN 23 H (9-20) mg/dL Glucose 134 H (74-99) mg/dL AST (17-59) U/L ALT (4-49) U/L Troponin I (0.000-0.034) ng/mL Thrombosis Risk Factor Assmnt - Choose All That Apply Any of the Below Risk Factors Present?: Yes Each Factor Represents 1 point: Obesity (BMI >25) Other Risk Factors: Yes Each Risk Factor Represents 2 Points: Age 61-74 years Other congenital or acquired thrombophilia - If yes, enter type in comment: No Thrombosis Risk Factor Assessment Total Risk Factor Score: 3 Thrombosis Risk Factor Assessment Level: Moderate Risk
--- NOTE | 2023-10-08 12:48 | P.CRDCN ---
History of Present Illness History of present illness: HISTORY OF PRESENT ILLNESS: This is a 73-year-old male with a past medical history significant for hypertension and obesity. Patient does not follow with a interpreter translator. We have been asked to see the patient in consultation for syncope and atrial fibrillation. Patient examined at the bedside. Patient states he was at home cutting the grass when he stopped and had bent over to put gas in the lawnmower. He states once he bent over he fell to the ground and passed out. He does state that he lost consciousness and was out for approximately 2 minutes. He apparently refused to have EMS bring him to the hospital. A family ember drove him to the hospital and he had another syncopal episode on the way here. The patient does report he has been having intermittent chest discomfort as well. He states on Friday he was having chest pain in the middle of his chest while he was sitting in his garage. He also reports having an episode of chest discomfort this morning. He also states he did have chest pain prior to his first syncopal episode. Patient was found to be in A-fib with RVR. He denies a history of atrial fibrillation. He remains in A-fib with RVR at the time of e xamination. He is currently on IV heparin and IV Cardizem. He is a non-smoker. He reports a family history of CHF in his dad. No family history of premature CAD. DIAGNOSTICS: - EKG reveals A-fib with RVR. - Chest xray negative for acute process - Current home cardiac medications include Lasix 20 mg daily, losartanhydrochlorothiazide 100-25 mg daily, carvedilol 25 mg twice a day - Most recent echocardiogram obtained in October 2021 revealed ejection fraction 50 to 55%, mild MR, mild TR REVIEW OF SYSTEMS: At the time of my exam: CONSTITUTIONAL: Denies fever or chills. HEENT: Denies blurred vision, vision changes, or eye pain. Denies hemoptysis CARDIOVASCULAR: Denies chest pain. Denies orthopnea. Denies PND. Denies palpitations RESPIRATORY: Denies shortness of breath. GASTROINTESTINAL: Denies abdominal pain. Denies nausea or vomiting. HEMATOLOGIC: Denies bleeding disorders. GENITOURINARY: Denies any blood in urine. SKIN: Denies pruitis. Denies rash. PHYSICAL EXAM: VITAL SIGNS: Reviewed. GENERAL: Well-developed in no acute distress. HEENT: Head is normocephalic. Pupils are equal, round. Sclerae anicteric. Mucous membranes of the mouth are moist. Neck supple. No JVD or thyromegaly LUNGS: Respirations even and unlabored. Lungs essentially clear to auscultation bilaterally. HEART: Tachycardic. Irregular rate and rhythm. S1 and S2 heard. ABDOMEN: Soft. Nondistended. Nontender. EXTREMITIES: Normal range of motion. No clubbing or cyanosis. Peripheral pulses intact. No lower extremity edema NEUROLOGIC: Awake and alert. Oriented x 3. ASSESSMENT: Syncope New onset atrial fibrillation with RVR Abnormal troponin, likely myocardial injury without ischemia secondary to A-fib with RVR, cannot rule out underlying CAD Hypertension Morbid obesity: BMI 43.6 PLAN: Obtain 2D echo to assess cardiac structure and function Continue IV heparin Add aspirin and atorvastatin Add metoprolol tartrate 50 mg twice a day Wean off Cardizem drip as heart rate will tolerate Continue telemetry monitoring N.p.o. at midnight Possible cardiac catheterization tomorrow with Dr. Segundo Further recommendations pending patient course Nurse practitioner note has been reviewed by physician. Signing provider agrees with the documented findings, assessment, and plan of care documented by PHOTOCOMPOSING MACHINE OPERATOR as a scribe. Past Medical History Past Medical History: Hypertension, Sleep Apnea/CPAP/BIPAP Additional Past Medical History / Comment(s): BPH, ELECTROCUTED IN 1985- BODY ACHES. History of Any Multi-Drug Resistant Organisms: None Reported Additional Past Surgical History / Comment(s): CATARACTS, ABD surgery from electrocution Past Anesthesia/Blood Transfusion Reactions: No Reported Reaction Past Psychological History: No Psychological Hx Reported Smoking Status: Former smoker Past Alcohol Use History: Occasional Additional Past Alcohol Use History / Comment(s): SMOKED TEEN- QUIT 1967 Past Drug Use History: None Reported - Past Family History Mother Family Medical History: No Reported History Father Family Medical History: Congestive Heart Failure (CHF) Medications and Allergies Home Medications Medication Instructions Recorded Confirmed Type Dutasteride [Avodart] 0.5 mg PO DAILY 02/23/18 10/07/23 History carvediloL [Coreg] 25 mg PO BID 02/23/18 10/07/23 History Losartan/Hydrochlorothiazide 1 tab PO DAILY 10/28/21 10/07/23 History [Losartan-Hctz 100-25 mg Tab] Furosemide [Lasix] 20 mg PO DAILY 10/07/23 10/07/23 History Multivitamins, Thera [Multivitamin 1 tab PO HS 10/07/23 10/07/23 History (formulary)] Allergies Allergy/AdvReac Type Severity Reaction Status Date / Time No Known Allergies Allergy Verified 10/07/23 15:00 Physical Exam Vitals: Vital Signs Temp Pulse Pulse Resp BP BP Pulse Ox 10/08/23 08:00 97.6 F 83 18 121/70 93 L 10/08/23 04:00 138/90 10/08/23 02:00 80 16 10/08/23 00:00 97.7 F 80 16 134/91 92 L 10/07/23 21:05 97.4 F L 108 H 18 129/87 98 10/07/23 20:00 105 H 12 113/92 94 L 10/07/23 19:00 122 H 17 124/92 93 L 10/07/23 18:00 98.1 F 88 20 121/76 91 L 10/07/23 17:40 130 H 18 120/81 92 L 10/07/23 16:00 96.9 F L 93 20 116/76 94 L 10/07/23 15:50 138 H 7 L 119/87 94 L 10/07/23 15:40 138 H 29 H 115/104 90 L 10/07/23 15:30 137 H 0 L 115/104 93 L 10/07/23 15:20 138 H 7 L 119/85 93 L 10/07/23 15:10 138 H 10 L 114/96 92 L 10/07/23 15:00 130 H 20 127/85 94 L 10/07/23 14:50 137 H 10 L 127/85 95 10/07/23 14:40 138 H 17 131/106 92 L 10/07/23 14:30 137 H 13 95 10/07/23 14:29 98.0 F 137 H 22 131/106 95 10/07/23 14:10 141 H 18 97/77 94 L 10/07/23 13:50 140 H 17 115/74 96 10/07/23 13:40 120 H 17 104/91 92 L 10/07/23 13:30 133 H 21 104/91 89 L 10/07/23 12:57 97.4 F L 103 H 20 119/89 95 Intake and Output 10/07/23 10/08/23 10/08/23 22:59 06:59 14:59 Intake Total 0 162.317 Balance 0 162.317 Intake: Intake, IV Titration 162.317 Amount Heparin Sod,Pork in 0.45% 162.317 NaCl 25,000 unit In 0.45 % NaCl 1 250ml.bag @ 6. 889 UNITS/KG/HR 9.999 mls /hr IV .Q24H [facility] Rx#: [id number] Oral 0 0 Other: Voiding Method Toilet Weight 145.15 kg 145.8 kg Results 10/08/23 07:41 10/08/23 07:41 Cardiac Enzymes 10/07/23 10/07/23 10/07/23 Range/Units 13:27 13:27 17:38 AST 63 H (17-59) U/L Troponin I 0.036 H* 0.034 (0.000-0.034) ng/mL 10/07/23 Range/Units 21:48 AST (17-59) U/L Troponin I 0.033 (0.000-0.034) ng/mL Coagulation 10/07/23 10/07/23 10/08/23 Range/Units 13:27 21:48 07:41 PT 12.1 12.2 (10.0-12.5) sec APTT 23.6 36.1 H (22.0-30.0) sec 10/08/23 Range/Units 07:41 PT (10.0-12.5) sec APTT 31.0 H (22.0-30.0) sec CBC 10/07/23 10/08/23 Range/Units 13:27 07:41 WBC 6.0 6.8 (3.8-10.6) k/uL RBC 4.03 L 4.17 L (4.30-5.90) m/uL Hgb 12.7 L 12.9 L (13.0-17.5) gm/dL Hct 37.8 L 40.5 (39.0-53.0) % Plt Count 187 200 (150-450) k/uL Comprehensive Metabolic Panel 10/07/23 10/08/23 Range/Units 13:27 07:41 Sodium 142 142 (137-145) mmol/L Potassium 3.5 3.3 L (3.5-5.1) mmol/L Chloride 104 102 (98-107) mmol/L Carbon Dioxide 28 33 H (22-30) mmol/L BUN 27 H 23 H (9-20) mg/dL Creatinine 1.06 0.98 (0.66-1.25) mg/dL Glucose 134 H 134 H (74-99) mg/dL Calcium 9.2 9.0 (8.4-10.2) mg/dL AST 63 H (17-59) U/L ALT 84 H (4-49) U/L Alkaline Phosphatase 62 (38-126) U/L Total Protein 7.3 (6.3-8.2) g/dL Albumin 4.1 (3.5-5.0) g/dL Current Medications Generic Name Dose Route Start Last Admin Trade Name Freq PRN Reason Stop Dose Admin Heparin Sodium (Porcine) 0 unit 10/07/23 15:58 Heparin Sodium 1,000 Un/Ml (10ml Vl) IV PER PROTOCOL PRN Low PTT Protocol Heparin Sodium/Sodium Chloride 250 mls @ 9.999 mls/hr 10/07/23 16:00 10/08/23 08:45 25,000 unit/ Sodium Chloride IV 9.889 units/kg/hr .Q24H [facility] 14.354 mls/hr Titration Protocol 6.889 UNITS/KG/HR Diltiazem HCl 125 mg/ Sodium 125 mls @ 5 mls/hr 10/07/23 17:00 10/07/23 17:40 Chloride IV 5 mg/hr .Q24H [facility] 5 mls/hr Administration Protocol 5 MG/HR Multivitamins 1 each 10/07/23 21:00 10/07/23 20:09 Multivitamins, Thera 1 Each Tab PO 1 each HS [facility] Administration Naloxone HCl 0.2 mg 10/07/23 16:06 Naloxone 0.4 Mg/Ml 1 Ml Vial IV Q2M PRN Opioid Reversal Intake and Output 10/07/23 10/08/23 10/08/23 22:59 06:59 14:59 Intake Total 0 162.317 Balance 0 162.317 Intake: Intake, IV Titration 162.317 Amount Heparin Sod,Pork in 0.45% 162.317 NaCl 25,000 unit In 0.45 % NaCl 1 250ml.bag @ 6. 889 UNITS/KG/HR 9.999 mls /hr IV .Q24H [facility] Rx#: [id number] Oral 0 0 Other: Voiding Method Toilet Weight 145.15 kg 145.8 kg 10/08/23 07:41 10/08/23 07:41
[2023-10-08] MEDS: POTASSIUM CHLORIDE ER 20 MEQ TAB.ER PO STA (12:50)
[2023-10-08] MEDS: HEPARIN SODIUM 1,000 UN/ML (10ML VL) IV PRN (15:32)
--- NOTE | 2023-10-08 18:06 | CA ---
Transthoracic Echo Report Name: Krystyna Wade Age: 73 Gender: M : 1950 Exam Date: 10/08/2023 11:33 Exam Location: [place] [facility] Ht (in): 72 Wt (lb): 321 Ordering Physician: Miladis López Attending/Referring Phys: [id number], Maribel Hedis Manager Bhumika Long RDCS Procedure CPT: Indications: LV function, CP, AFIB RVR Cardiac Hx: A-fib RVR Technical Quality: Technically difficult study Contrast 1: Definity Total Dose (mL): 2 Contrast 2: Total Dose (mL): MEASUREMENTS (Male / Female) Normal Values 2D ECHO LV Diastolic Diameter PLAX 5.3 cm 4.2 - 5.9 / 3.9 - 5.3 cm LV Systolic Diameter PLAX 3.7 cm IVS Diastolic Thickness 1.3 cm 0.6 - 1.0 / 0.6 - 0.9 cm LVPW Diastolic Thickness 1.2 cm 0.6 - 1.0 / 0.6 - 0.9 cm LV Relative Wall Thickness 0.5 LVOT Diameter 2.6 cm LV Diastolic Volume MOD BP 129.7 cm??? 67 - 155 / 56 - 104 cm??? LV Systolic Volume MOD BP 51.1 cm??? 22 - 58 / 19 - 49 cm??? LV Ejection Fraction MOD BP 60.6 % >= 55 % LV Cardiac Index MOD BP 3157.8 cm???/min???m??? LV Diastolic Volume MOD 4C 131.5 cm??? LV Systolic Volume MOD 4C 49.1 cm??? LV Ejection Fraction MOD 4C 62.6 % LV Cardiac Index MOD 4C 3309.0 cm???/min???m??? LV Diastolic Length 4C 8.8 cm LV Systolic Length 4C 7.4 cm LV Diastolic Volume MOD 2C 124.9 cm??? LV Systolic Volume MOD 2C 49.3 cm??? LV Ejection Fraction MOD 2C 60.5 % LV Cardiac Index MOD 2C 3040.1 cm???/min???m??? LV Diastolic Length 2C 9.1 cm LV Systolic Length 2C 8.1 cm LA Volume 109.7 cm??? 18 - 58 / 22 - 52 cm??? LA Volume Index 39.4 cm???/m??? 16 - 28 cm???/m??? Ascending Aorta Diameter 3.9 cm DOPPLER AV Peak Velocity 150.5 cm/s AV Peak Gradient 9.1 mmHg AV Mean Velocity 107.4 cm/s AV Mean Gradient 5.2 mmHg AV Velocity Time Integral 26.6 cm LVOT Peak Velocity 90.4 cm/s LVOT Peak Gradient 3.3 mmHg LVOT Velocity Time Integral 16.0 cm LVOT Stroke Volume 85.0 cm??? LVOT Stroke Volume Index 32.6 ml/m??? LVOT Cardiac Index 3414.7 cm???/min???m??? AV Area Cont Eq vti 3.2 cm??? AV Area Cont Eq pk 3.2 cm??? TR Peak Velocity 222.4 cm/s TR Peak Gradient 19.8 mmHg Right Atrial Pressure 15.0 mmHg Pulmonary Artery Systolic Pressu 34.8 mmHg Right Ventricular Systolic Press 34.8 mmHg PV Peak Velocity 58.8 cm/s PV Peak Gradient 1.4 mmHg FINDINGS Left Ventricle Left ventricular ejection fraction is estimated at 55-60 %. Mildly increased septal wall thickness. Left ventricular cavity size normal. No obvious regional wall motion abnormalities. Right Ventricle Normal right ventricular size and function. Right ventricular systolic pressure within normal limits. Right Atrium Right atrial dilatation. Left Atrium Moderately increased left atrial volume. Mildly increased left atrial area. Mitral Valve Structurally normal mitral valve. No evidence for mitral valve prolapse. No mitral stenosis. Mild mitral regurgitation. Aortic Valve Aortic valve not well visualized. No aortic valve stenosis or regurgitation. Tricuspid Valve Structurally normal tricuspid valve. No tricuspid stenosis. Mild tricuspid regurgitation. Pulmonic Valve Structurally normal pulmonic valve. No pulmonic stenosis. Trace pulmonic regurgitation. Pericardium No pericardial effusion. Aorta Normal size aortic root and proximal ascending aorta. CONCLUSIONS Normal LV function Mild mitral regurgitant Previewed by: Dr. Raymond Rainey MD (Electronically Signed) Final Date: 08 October 2023 18:05
[2023-10-08] MEDS: ATORVASTATIN 80 MG TAB PO SCH (20:22)
[2023-10-09 07:02] LABS: HCT 35.9 % (39.0-53.0); HGB 11.9 gm/dL (13.0-17.5); Hypochromasia Slight; MCH 31.6 pg (25.0-35.0); MCHC 33.1 g/dL (31.0-37.0); MCV 95.4 fL (80.0-100.0); Mean Platelet Volume 8.5; Platelet Count 221 k/uL (150-450); RBC 3.76 m/uL (4.30-5.90); RDW 14.8 % (11.5-15.5); WBC 6.8 k/uL (3.8-10.6)
[2023-10-09 07:35] LABS: African American GFR (CKD) >90 (>60 ml/min/1.73 sqM); Anion Gap 8 mmol/L; Blood Urea Nitrogen 22 mg/dL (9-20); Carbon Dioxide 28 mmol/L (22-30); Chloride 105 mmol/L (98-107); Glucose 127 mg/dL (74-99); Non-African American GFR(CKD) 85 (>60 ml/min/1.73 sqM); Potassium 3.5 mmol/L (3.5-5.1); Sodium 141 mmol/L (137-145)
[2023-10-09] MEDS ORDERED: LIDOCAINE 1% INJ 10MG/ML (20 ML MDV) ONE (10:20)
[2023-10-09] MEDS ORDERED: PROPOFOL 10 MG/ML 20 ML VIAL IV ONE (10:20)
[2023-10-09] MEDS: IV FLUID CONTINUATION 1,000 ML IV ONE (10:22)
[2023-10-09] MEDS: BENZOCAINE SPRAY 1 CAN TOPICAL ONE (10:25)
--- NOTE | 2023-10-09 11:09 | P.PCN ---
Date of Procedure: 10/09/23 Operative Findings: TRANSESOPHAGEAL ECHOCARDIOGRAM GAME WARDEN: WARREN CONNER MD, RPVI INDICATION: Rule out intracardiac thrombus before cardioversion SEDATION: Conscious sedation COMPLICATION: None LEVEL OF SEDATION The procedure was performed after the patient was given propofol PROCEDURE DESCRIPTION: After obtaining an informed consent, the patient was brought to the recovery room. Pulse oximetry and heart monitors were attached to the patient. The patient throat was sprayed using lidocaine. The patient was turned into left lateral position. After that a bite guard was placed. After an appropriate conscious sedation was initiated, the transesophageal echocardiogram was advanced through a bite guard into the mid esophagus. A 2-D echocardiogram images, color Doppler images, continuous wave images, pulse-wave images, of various cardiac structure were performed. After that the transesophageal echocardiogram probe was advanced into the stomach and fixed to obtain transgastric view was. The probe was brought into the mid esophagus. Inter-atrial septum was interrogated using 2D images, color Doppler images, and then contrast study. After that transesophageal echocardiogram was withdrawn out and upon withdrawing the descending thoracic aorta all the way up to the arch was evaluated. CONCLUSION: 1. Severe biatrial enlargement 2. Intact left atrial advantage and intact interatrial septum 3. No evidence of intracardiac thrombus 4. Normal biventricular systolic function 5. Moderate mitral and tricuspid regurgitation 6. Aortic sclerosis with no stenosis or insufficiency
--- NOTE | 2023-10-09 11:10 | P.PCN ---
Date of Procedure: 10/09/23 Operative Findings: Cardioversion Report Performing physician Tony Segundo M.D. Procedure performed Successful cardioversion of atrial fibrillation to normal sinus mechanism using 150 J at first attempt Indication Symptomatic atrial fibrillation Complication None Level of sedation The procedure was performed under deep sedation using propofol with PROPULSION MOTOR AND GENERATOR REPAIRER in the room Procedure description After obtaining an informed consent the patient was brought to the recovery room. Sedation was introduced using propofol with PROPULSION MOTOR AND GENERATOR REPAIRER in the room. Subsequently the patient cardioverted from atrial fibrillation to normal sinus mechanism using 200 J and first attempt Conclusion Successful cardioversion of atrial fibrillation to normal sinus mechanism using 200 J Postprocedure management Continue the current medical regimen Continue oral anticoagulation Follow-up with the patient
--- NOTE | 2023-10-09 12:48 | P.PN ---
Subjective HISTORY OF PRESENT ILLNESS: This is a 73-year-old male with a past medical history significant for hypertension and obesity. Patient does not follow with a conference services coordinator. We have been asked to see the patient in consultation for syncope and atrial fibrillation. Patient examined at the bedside. Patient states he was at home cutting the grass when he stopped and had bent over to put gas in the lawnmower. He states once he bent over he fell to the ground and passed out. He does state that he lost consciousness and was out for approximately 2 minutes. He apparently refused to have EMS bring him to the hospital. A family ember drove him to the hospital and he had another syncopal episode on the way here. The patient does report he has been having intermittent chest discomfort as well. He states on Friday he was having chest pain in the middle of his chest while he was sitting in his garage. He also reports having an episode of chest discomfort this morning. He also states he did have chest pain prior to his first syncopal episode. Patient was found to be in A-fib with RVR. He denies a history of atrial fibrillation. He remains in A-fib with RVR at the time of examination. He is currently on IV heparin and IV Cardizem. He is a non- smoker. He reports a family history of CHF in his dad. No family history of premature CAD. DIAGNOSTICS: - EKG reveals A-fib with RVR. - Chest xray negative for acute process - Current home cardiac medications include Lasix 20 mg daily, losartanhydrochlorothiazide 100-25 mg daily, carvedilol 25 mg twice a day - Most recent echocardiogram obtained in October 2021 revealed ejection fraction 50 to 55%, mild MR, mild TR 10/09/2023 Patient examined this morning. Patient is sitting up in the chair. Patient currently denies any shortness of breath. He does report having an episode of chest pain overnight which he states felt like a spasm. Patient remains in atrial fibrillation with RVR this morning. He remains on IV heparin and IV Cardizem at 5 mg an hour. Echocardiogram completed revealing ejection fraction 55 to 60%, no obvious regional wall motion abnormalities, mild mitral regurgitation PHYSICAL EXAM: VITAL SIGNS: Reviewed. GENERAL: Well-developed in no acute distress. HEENT: Head is normocephalic. Pupils are equal, round. Sclerae anicteric. Mucous membranes of the mouth are moist. Neck supple. No JVD or thyromegaly LUNGS: Respirations even and unlabored. Lungs essentially clear to auscultation bilaterally. HEART: Tachycardic. Irregular rate and rhythm. S1 and S2 heard. ABDOMEN: Soft. Nondistended. Nontender. EXTREMITIES: Normal range of motion. No clubbing or cyanosis. Peripheral pulses intact. No lower extremity edema NEUROLOGIC: Awake and alert. Oriented x 3. ASSESSMENT: Syncope New onset atrial fibrillation with RVR Abnormal troponin, likely myocardial injury without ischemia secondary to A-fib with RVR, cannot rule out underlying CAD Hypertension Morbid obesity: BMI 43.6 PLAN: Continue current cardiac medications Since patient is still having difficulties with rate control, we will plan for ALMA and cardioversion today Will hold off on cardiac catheterization at this time as echocardiogram revealed normal LV systolic function and patient is denying any chest pain or pressure.. Will plan for outpatient stress testing. Plan discussed with patient who is agreeable. Will transition to Eliquis post cardioversion Further recommendations pending patient course Nurse practitioner note has been reviewed by physician. Signing provider agrees with the documented findings, assessment, and plan of care documented by IN SCHOOL SUSPENSION AIDE as a scribe. Objective - Vital Signs Vital signs: Vital Signs Temp 97 F L 10/09/23 10:40 Pulse 71 10/09/23 11:25 Resp 18 10/09/23 11:25 BP 111/65 10/09/23 11:25 Pulse Ox 6 L 10/09/23 11:25 FiO2 Intake & Output 10/08/23 10/09/23 10/09/23 18:59 06:59 18:59 Intake Total 1122.811 160.202 318 Balance 1122.811 160.202 318 Weight 146.3 kg Intake: IV 200 Intake, IV Titration 342.811 160.202 Amount Diltiazem 125 mg In 84.083 Sodium Chloride 0.9% 100 ml @ 5 MG/HR 5 mls/hr IV .Q24H [facility] Rx#:[id number] Heparin Sod,Pork in 0.45% 258.728 160.202 NaCl 25,000 unit In 0.45 % NaCl 1 250ml.bag @ 6. 889 UNITS/KG/HR 9.999 mls /hr IV .Q24H [facility] Rx#: [id number] Oral 780 [id number] Other: Voiding Method Toilet Toilet # Voids 2 2 - Labs CBC & Chem 7: 10/09/23 05:49 10/09/23 05:49 Labs: Abnormal Lab Results - Last 24 Hours (Table) 10/08/23 10/08/23 10/09/23 Range/Units 14:32 21:05 05:49 RBC 3.76 L (4.30-5.90) m/uL Hgb 11.9 L (13.0-17.5) gm/dL Hct 35.9 L (39.0-53.0) % APTT 39.6 H 68.7 H (22.0-30.0) sec BUN (9-20) mg/dL Glucose (74-99) mg/dL 10/09/23 Range/Units 05:49 RBC (4.30-5.90) m/uL Hgb (13.0-17.5) gm/dL Hct (39.0-53.0) % APTT (22.0-30.0) sec BUN 22 H (9-20) mg/dL Glucose 127 H (74-99) mg/dL
--- NOTE | 2023-10-09 15:13 | P.PN ---
Subjective Progress Note Date: 10/09/23 Pleasant 73-year-old male came in after he had syncopal episodes found to be in atrial fibrillation with rapid ventricular rate. Patient was started on Cardizem still on Cardizem 5 mg did not have any history of atrial fibrillation in the past patient was started on anticoagulation with heparin positive troponin is minimally elevated to 0.03 patient also has chest pressure-like sensation, he EKG showed some nonspecific T wave changes in inferior leads. Cardiology evaluate the patient plan is for cardiac catheterization tomorrow. Patient had any fever chills nausea vomiting. AST and ALT are minimally elevated to 63 and [address] angio of the chest abdominal pelvic CT all of which are essentially within normal limits no evidence of congestive heart failure at this time. 10/09/2023 Patient seen and evaluated in follow-up today currently being followed by cardiology as patient was found to have atrial fibrillation with RVR. Patient underwent ALMA with cardioversion today which was successful and cardiology following recommending monitoring overnight for any further arrhythmias. Patient reports to feeling well and asking about going home. No plans for immediate cardiac catheterization and cardiology would like to follow-up outpatient to discuss an outpatient stress test and/or catheterization in the near future. Patient is afebrile with no reports of chest pain or shortness of breath. Patient is tolerating diet with no reported nausea or vomiting. Encourage patient to increase activity as tolerated with frequent walks around the unit. Review of systems: Constitutional: No reports of fatigue, fever, or chills Cardiovascular: No reports of chest pain or palpitations Respiratory: No reports of shortness of breath or cough GI: No reports of nausea, vomiting, or diarrhea : No reports of dysuria or retention Neurovascular: No reports of weakness or numbness All medications have been reviewed PHYSICAL EXAMINATION: GENERAL: The patient is alert and oriented x3, not in any acute distress. Well developed, well nourished. Elderly appearing, morbidly obese HEENT: Pupils are round and equally reacting to light. EOMI. No scleral icterus. No conjunctival pallor. Normocephalic, atraumatic. No pharyngeal erythema. No thyromegaly. CARDIOVASCULAR: S1 and S2 muffled, currently sinus rhythm on the monitor PULMONARY: Chest is clear to auscultation, no wheezing or crackles. ABDOMEN: Soft, obese, nontender, nondistended, normoactive bowel sounds. No palpable organomegaly. MUSCULOSKELETAL: No joint swelling or deformity. EXTREMITIES: No cyanosis, clubbing, or pedal edema. NEUROLOGICAL: Gross neurological examination did not reveal any focal deficits. SKIN: No rashes. Assessment: -Atrial fibrillation with rapid ventricular rate, status post ALMA with cardioversion today on 10/09/2023 -Minimally elevated troponins with EKG changes and chest pressure: acute coronary syndromes ruled out, cardiology recommending outpatient stress testing and/or cardiac catheterization -Hypertension history -Benign prostatic hypertrophy -Morbid obesity with a BMI of 43.7 -Sleep apnea, uses CPAP machine at home -DVT prophylaxis: On IV heparin being transition to Eliquis -GI prophylaxis -Full code Plan: Patient will be monitored overnight on telemetry monitoring per cardiology as patient is status post cardioversion with ALMA today and recommend another 24 ho urs to monitor for any further arrhythmias Encouraged increase activity as tolerated and frequent walking Home medications reviewed and resumed as appropriate IV heparin is being discontinued and patient is being started on Eliquis. Monitor for any signs of bleeding Will follow-up with repeat labs in the a.m. and discuss with cardiology about possible discharge planning in the next 24 hours Overall prognosis is guarded The impression and plan of care has been dictated by Jimena Hurley Nurse Practitioner as directed. Dr. Shiva MD I have performed a history and examination and MDM of this patient, discussed the same with the dictator, and agree with the dictator's assessment and plan as written ,documented as a scribe. Based on total visit time, I have performed more than 50% of the visit. Objective - Vital Signs Vital signs: Vital Signs Temp 98.1 F 10/09/23 11:52 Pulse 87 10/09/23 12:07 Resp 18 10/09/23 12:07 BP 113/76 10/09/23 12:07 Pulse Ox 92 L 10/09/23 12:07 FiO2 Intake & Output 10/08/23 10/09/23 10/09/23 18:59 06:59 18:59 Intake Total 1122.811 160.202 336 Balance 1122.811 160.202 336 Weight 146.3 kg Intake: IV 100 Intake, IV Titration 342.811 160.202 Amount Diltiazem 125 mg In 84.083 Sodium Chloride 0.9% 100 ml @ 5 MG/HR 5 mls/hr IV .Q24H VALDO Rx#:[id number] Heparin Sod,Pork in 0.45% 258.728 160.202 NaCl 25,000 unit In 0.45 % NaCl 1 250ml.bag @ 6. 889 UNITS/KG/HR 9.999 mls /hr IV .Q24H VALDO Rx#: [id number] Oral 780 236 Other: Voiding Method Toilet Toilet # Voids 2 2 - Labs CBC & Chem 7: 10/09/23 05:49 10/09/23 05:49 Labs: Abnormal Lab Results - Last 24 Hours (Table) 10/08/23 10/08/23 10/09/23 Range/Units 14:32 21:05 05:49 RBC 3.76 L (4.30-5.90) m/uL Hgb 11.9 L (13.0-17.5) gm/dL Hct 35.9 L (39.0-53.0) % APTT 39.6 H 68.7 H (22.0-30.0) sec BUN (9-20) mg/dL Glucose (74-99) mg/dL 10/09/23 Range/Units 05:49 RBC (4.30-5.90) m/uL Hgb (13.0-17.5) gm/dL Hct (39.0-53.0) % APTT (22.0-30.0) sec BUN 22 H (9-20) mg/dL Glucose 127 H (74-99) mg/dL
[2023-10-09] MEDS: APIXABAN 5 MG TAB PO SCH (19:54)
[2023-10-10 06:51] LABS: African American GFR (CKD) 87 (>60 ml/min/1.73 sqM); Anion Gap 10 mmol/L; Blood Urea Nitrogen 27 mg/dL (9-20); Calcium 8.8 mg/dL (8.4-10.2); Carbon Dioxide 26 mmol/L (22-30); Chloride 104 mmol/L (98-107); Glucose 128 mg/dL (74-99); Magnesium 2.1 mg/dL (1.6-2.3); Non-African American GFR(CKD) 75 (>60 ml/min/1.73 sqM); Potassium 3.8 mmol/L (3.5-5.1); Sodium 140 mmol/L (137-145)
[2023-10-10] MEDS: FUROSEMIDE 10 MG/ML 4 ML VIAL IV STA (09:44)
[2023-10-10] MEDS: LOSARTAN-HCTZ 50-12.5 MG 1 EACH TAB PO SCH (10:15)
--- NOTE | 2023-10-10 11:14 | P.PN ---
Subjective HISTORY OF PRESENT ILLNESS: This is a 73-year-old male with a past medical history significant for hypertension and obesity. 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 We have been asked to see the patient in consultation for syncope and atrial fibrillation. Patient examined at the bedside. Patient states he was at home cutting the grass when he stopped and had bent over to put gas in the lawnmower. He states once he bent over he fell to the ground and passed out. He does state that he lost consciousness and was out for approximately 2 minutes. He apparently refused to have EMS bring him to the hospital. A family ember drove him to the hospital and he had another syncopal episode on the way here. The patient does report he has been having intermittent chest discomfort as well. He states on Friday he was having chest pain in the middle of his chest while he was sitting in his garage. He also reports having an episode of chest discomfort this morning. He also states he did have chest pain prior to his first syncopal episode. Patient was found to be in A-fib with RVR. He denies a history of atrial fibrillation. He remains in A-fib with RVR at the time of examination. He is currently on IV heparin and IV Cardizem. He is a non- smoker. He reports a family history of CHF in his dad. No family history of premature CAD. DIAGNOSTICS: - EKG reveals A-fib with RVR. - Chest xray negative for acute process - Current home cardiac medications include Lasix 20 mg daily, losartanhydrochlorothiazide 100-25 mg daily, carvedilol 25 mg twice a day - Most recent echocardiogram obtained in October 2021 revealed ejection fraction 50 to 55%, mild MR, mild TR 10/09/2023 Patient examined this morning. Patient is sitting up in the chair. Patient currently denies any shortness of breath. He does report having an episode of chest pain overnight which he states felt like a spasm. Patient remains in atrial fibrillation with RVR this morning. He remains on IV heparin and IV Cardizem at 5 mg an hour. Echocardiogram completed revealing ejection fraction 55 to 60%, no obvious regional wall motion abnormalities, mild mitral regurgitation 10/10/2023 Patient examined this morning at the bedside. Patient underwent ALMA and cardioversion. He is maintaining sinus mechanism this morning. He denies any chest pain or pressure. Denies any shortness of breath. He does report lower extremity edema this morning. PHYSICAL EXAM: VITAL SIGNS: Reviewed. GENERAL: Well-developed in no acute distress. HEENT: Head is normocephalic. Pupils are equal, round. Sclerae anicteric. Mucous membranes of the mouth are moist. Neck supple. No JVD or thyromegaly LUNGS: Respirations even and unlabored. Lungs essentially clear to auscultation bilaterally. HEART: Regular rate and rhythm. S1 and S2 heard. ABDOMEN: Soft. Nondistended. Nontender. EXTREMITIES: Normal range of motion. No clubbing or cyanosis. Peripheral pulses intact. 1-2+ bilateral lower extremity edema NEUROLOGIC: Awake and alert. Oriented x 3. ASSESSMENT: Syncope New onset atrial fibrillation with RVR, status post ALMA and cardioversion, maintaining sinus mechanism Abnormal troponin, likely myocardial injury without ischemia secondary to A-fib with RVR, cannot rule out underlying CAD Hypertension Morbid obesity: BMI 43.6 Lower extremity edema without acute CHF PLAN: Will hold off on cardiac catheterization at this time as echocardiogram revealed normal LV systolic function and patient is denying any chest pain or pressure.. Will plan for outpatient stress testing. Plan discussed with patient who is agreeable. Continue Eliquis Give one-time dose of IV Lasix 40 mg due to lower extremity edema and then begin oral Lasix 40 mg daily Resume losartanhydrochlorothiazide Patient may be discharged home today from a cardiac standpoint and follow-up in the office with Dr. Segundo Further recommendations pending patient course Nurse practitioner note has been reviewed by physician. Signing provider agrees with the documented findings, assessment, and plan of care documented by WEB OPERATIONS MANAGER as a scribe. Objective - Vital Signs Vital signs: Vital Signs Temp 97.5 F L 10/10/23 08:30 Pulse 80 10/10/23 08:30 Resp 17 10/10/23 08:34 BP 154/103 10/10/23 08:30 Pulse Ox 94 L 10/10/23 08:51 FiO2 Intake & Output 10/09/23 10/10/23 10/10/23 18:59 06:59 18:59 Intake Total 454 540 118 Balance 454 540 118 Weight 147.3 kg Intake: IV 100 Oral 354 540 118 Other: Voiding Method Toilet Toilet # Voids 2 - Labs CBC & Chem 7: 10/09/23 05:49 10/10/23 05:25 Labs: Abnormal Lab Results - Last 24 Hours (Table) 10/10/23 Range/Units 05:25 BUN 27 H (9-20) mg/dL Glucose 128 H (74-99) mg/dL
[2023-10-10 11:36] VITALS: BP 147/85; PULSE 72; RESP 18; TEMP 98
[2023-10-11] MEDS ORDERED: FUROSEMIDE 40 MG TAB PO SCH (09:00)
--- NOTE | 2023-10-13 09:44 | P.DS ---
Providers Date of admission: 10/07/23 16:09 Expected date of discharge: 10/10/23 Attending physician: Alexia Shannon Consults: 10/07/23 16:06 Consult Physician Urgent Consulting Provider: [facility] Reason/Comments: new onset afib Do you want consulting provider notified?: Yes Primary care physician: Devonte Baum [facility] Course: Final diagnosis -Atrial fibrillation with rapid ventricular rate, status post ALMA with cardioversion on 10/09/2023 -Minimally elevated troponins with EKG changes and chest pressure: acute coronary syndromes ruled out, cardiology recommending outpatient stress testing and/or cardiac catheterization -Hypertension history -Benign prostatic hypertrophy -Morbid obesity with a BMI of 43.7 -Sleep apnea, uses CPAP machine at home -DVT prophylaxis: On IV heparin being transition to Eliquis -GI prophylaxis -Full code Discharge disposition Patient is being discharged in a stable condition with guarded prognosis to home. Patient will follow-up with Dr. Baum in the outpatient setting upon discharge. Patient is to continue with current cardiac meds and outpatient follow-up with cardiology as scheduled. To discuss outpatient stress testing and/or cardiac catheterization. Total time taken is greater than 35 minutes. Hospital course This is a 73-year-old male who was recently admitted with palpitations new onset atrial fibrillation with RVR. Patient being monitored by cardiology underwent cardioversion with ALMA. Patient has been transition to Eliquis and cardiology monitored overnight recommending outpatient follow-up for stress testing and/or cardiac catheterization in the near future. Patient reports to feeling well and denies any chest pain or shortness of breath. Patient would like to go home. Patient has been cleared by cardiology. Please refer to cardiology notes for further HPI. Recommend outpatient labs to monitor kidney functions and electrolytes and patient will be continued on oral Lasix. Currently no reports of chest pain, shortness of breath, or palpitations. Patient is afebrile. No reports of nausea or vomiting and patient is tolerating diet. Patient will be discharged home today. Guarded prognosis Physical exam: Gen: This is a 73-year-old male who is awake, alert and oriented x 3, well- developed, well-nourished, morbidly obese HEENT: Head is atraumatic, normocephalic. Pupils equal, round. Sclerae is anicteric. NECK: Supple. No JVD. No lymphadenopathy. No thyromegaly. LUNGS: Diminished breath sounds bilaterally otherwise clear to auscultation. No wheezes or rhonchi. No intercostal retractions. HEART: S1, S2 are muffled, irregular, rate controlled ABDOMEN: Soft. Obese bowel sounds are present. No masses. No tenderness. EXTREMITIES: No pedal edema. No calf tenderness. Mild lower extremity edema, nonpitting noted NEUROLOGICAL: Patient is awake, alert and oriented x3. Cranial nerves 2 through 12 are grossly intact. Please refer to medication reconciliation sheet for a list of medications. The impression and plan of care has been dictated by Jimena Hurley, Nurse Practitioner as directed. Dr. Shiva MD I have performed a history and examination and MDM of this patient, discussed the same with the dictator, and agree with the dictator's assessment and plan as written ,documented as a scribe. Based on total visit time, I have performed more than 50% of the visit. Patient Condition at Discharge: Fair Plan - Discharge Summary Discharge Rx Participant: No New Discharge Prescriptions: New Aspirin 81 mg PO DAILY #30 tab Furosemide [Lasix] 40 mg PO DAILY #30 tab Metoprolol Tartrate [Lopressor] 50 mg PO BID #60 tab Apixaban [Eliquis] 5 mg PO BID #60 tab Atorvastatin [Lipitor] 80 mg PO HS #30 tab Dutasteride [Avodart] 0.5 mg PO DAILY #30 capsule Continue Losartan/Hydrochlorothiazide [Losartan-Hctz 100-25 mg Tab] 1 tab PO DAILY Multivitamins, Thera [Multivitamin (formulary)] 1 tab PO HS Discontinued Dutasteride [Avodart] 0.5 mg PO DAILY carvediloL [Coreg] 25 mg PO BID Furosemide [Lasix] 20 mg PO DAILY Discharge Medication List Losartan/Hydrochlorothiazide [Losartan-Hctz 100-25 mg Tab] 1 tab PO DAILY 10/28/21 [History] Multivitamins, Thera [Multivitamin (formulary)] 1 tab PO HS 10/07/23 [History] Apixaban [Eliquis] 5 mg PO BID #60 tab 10/10/23 [Rx] Aspirin 81 mg PO DAILY #30 tab 10/10/23 [Rx] Atorvastatin [Lipitor] 80 mg PO HS #30 tab 10/10/23 [Rx] Dutasteride [Avodart] 0.5 mg PO DAILY #30 capsule 10/10/23 [Rx] Furosemide [Lasix] 40 mg PO DAILY #30 tab 10/10/23 [Rx] Metoprolol Tartrate [Lopressor] 50 mg PO BID #60 tab 10/10/23 [Rx] Follow up Appointment(s)/Referral(s): Tony Segundo MD [STAFF PHYSICIAN] - 10/15/23 4:45 pm Devonte Baum DO [Primary Care Provider] - 1-2 days (please call to schedule) Patient Instructions/Handouts: A-fib (Atrial Fibrillation) (DC), Cardioversion (DC), Transesophageal Echocardiogram (DC) Activity/Diet/Wound Care/Special Instructions: Activity limited until follow-up Follow-up with primary care provider on discharge Follow-up with cardiology as discussed in 1 to 2 weeks and discuss outpatient stress test Continue taking medications as prescribed Follow heart healthy diet Roberto Carlos Hess Discharge Disposition: HOME SELF-CARE
== END 2023-10-10 12:33 | disposition home or self-care (01) | DRG 309 ==
LOC: EC 12:56 → 3SCARD 16:09
PROVIDERS: ADMIT Hospitalist; ATTEND Hospitalist
PROC: 5A2204Z Restoration of Cardiac Rhythm, Single (ICD-10-PCS; principal; 2023-10-09 07:30)
PROC: B24BZZ4 Ultrasonography of Heart with Aorta, Transesophageal (ICD-10-PCS; principal; 2023-10-09 07:30)
DX: I48.91 Unspecified atrial fibrillation (principal); I5A Non-ischemic myocardial injury (non-traumatic); Z68.41 Body mass index [BMI] 40.0-44.9, adult; E66.01 Morbid (severe) obesity due to excess calories; G47.30 Sleep apnea, unspecified; I08.3 Combined rheumatic disorders of mitral, aortic and tricuspid valves; I10 Essential (primary) hypertension; N40.0 Benign prostatic hyperplasia without lower urinary tract symptoms; W19.XXXA Unspecified fall, initial encounter; Z79.899 Other long term (current) drug therapy; Z87.891 Personal history of nicotine dependence; Z28.310 Unvaccinated for COVID-19; Z28.21 Immunization not carried out because of patient refusal; W86.8XXS Exposure to other electric current, sequela; T75.4XXS Electrocution, sequela; R52 Pain, unspecified
CPT/HCPCS: 36415; 71046; 71275; 74177; 80048; 80053; 83690; 83735; 84443; 84484; 85025; 85027; 85379; 85610; 85730; 92960; 93005; 93306; 93312; 93320; 93325; 94760; 96365; 96366; 96368; 96375; 99291

== ENCOUNTER 2023-10-14 10:27 | Emergency (ER) | payer MEDICARE ==
[2023-10-14 11:38] VITALS: RESP 16
[2023-10-14 11:42] LABS: Basophils # (A) 0.1 k/uL (0-0.2); Basophils % (A) 1 %; Eosinophils # (A) 0.1 k/uL (0-0.7); Eosinophils % (A) 2 %; HCT 40.2 % (39.0-53.0); HGB 13.4 gm/dL (13.0-17.5); Hypochromasia Slight; Lymphocytes # (A) 0.8 k/uL (1.0-4.8); Lymphocytes % (A) 12 %; MCH 31.5 pg (25.0-35.0); MCHC 33.3 g/dL (31.0-37.0); MCV 94.4 fL (80.0-100.0); Mean Platelet Volume 7.9; Monocytes # (A) 0.4 k/uL (0-1.0); Monocytes % (A) 7 %; Neutrophils # (A) 5.2 k/uL (1.3-7.7); Neutrophils % (A) 76 %; Platelet Count 244 k/uL (150-450); RBC 4.26 m/uL (4.30-5.90); RDW 15.1 % (11.5-15.5); WBC 6.8 k/uL (3.8-10.6)
--- NOTE | 2023-10-14 11:43 | XR ---
EXAMINATION TYPE: XR chest 2V DATE OF EXAM: 10/14/2023 COMPARISON: 10/07/2023 HISTORY: Shortness of breath TECHNIQUE: Frontal and lateral views of the chest are obtained. FINDINGS: Scattered senescent parenchymal changes noted. Hyperinflation compatible with COPD. There is peribronchial cuffing noted with increased opacity right medial lung base. Correlate for bro nchitis and developing pneumonia. Heart size is stable. Mediastinal structures are stable and grossly unremarkable. No evidence for hilar prominence. Degenerative changes dorsal spine. IMPRESSION: 1. There is peribronchial cuffing noted with increased opacity right medial lung base. Correlate for bronchitis and developing pneumonia.
[2023-10-14 12:07] LABS: INR 1.3 (<1.2); Partial Thromboplastin Time 26.2 sec (22.0-30.0); Prothrombin Time 13.5 sec (10.0-12.5)
[2023-10-14 12:38] VITALS: PULSE 70
[2023-10-14 12:48] LABS: ALT 109 U/L (4-49); AST 81 U/L (17-59); African American GFR (CKD) >90 (>60 ml/min/1.73 sqM); Albumin 4.2 g/dL (3.5-5.0); Alkaline Phosphatase 80 U/L (38-126); Anion Gap 9 mmol/L; Blood Urea Nitrogen 20 mg/dL (9-20); Calcium 9.1 mg/dL (8.4-10.2); Carbon Dioxide 31 mmol/L (22-30); Chloride 101 mmol/L (98-107); Glucose 111 mg/dL (74-99); Magnesium 1.9 mg/dL (1.6-2.3); Non-African American GFR(CKD) 79 (>60 ml/min/1.73 sqM); Potassium 3.6 mmol/L (3.5-5.1); Sodium 141 mmol/L (137-145); Total Bilirubin 1.4 mg/dL (0.2-1.3); Total Protein 7.6 g/dL (6.3-8.2)
--- NOTE | 2023-10-14 12:49 | ED ---
General Adult HPI - General Chief complaint: Shortness of Breath Stated complaint: SOB Time Seen by Provider: 10/14/23 10:32 Source: patient, family, RN notes reviewed Mode of arrival: ambulatory Limitations: no limitations - History of Present Illness Initial comments: 73-year-old male presents emergency department complaint of shortness of breath. Patient states primary orthopnea and exertional dyspnea. Patient states he had a recent hospitalization for new onset atrial fibrillation and states that he did have cardiology evaluation, placed on anticoagulants and had an echocardiogram. Patient states since has been discharged he said increasing shortness of breath he does not have any at rest. Denies any fevers chills no chest pain currently denies abdominal pain but does complain of leg swelling. - Related Data Home Medications Medication Instructions Recorded Confirmed Losartan/Hydrochlorothiazide 1 tab PO DAILY 10/28/21 10/14/23 [Losartan-Hctz 100-25 mg Tab] Multivitamins, Thera [Multivitamin 1 tab PO HS 10/07/23 10/14/23 (formulary)] Previous Rx's Medication Instructions Recorded Apixaban [Eliquis] 5 mg PO BID #60 tab 10/10/23 Aspirin 81 mg PO DAILY #30 tab 10/10/23 Atorvastatin [Lipitor] 80 mg PO HS #30 tab 10/10/23 Dutasteride [Avodart] 0.5 mg PO DAILY #30 capsule 10/10/23 Furosemide [Lasix] 40 mg PO DAILY #30 tab 10/10/23 Metoprolol Tartrate [Lopressor] 50 mg PO BID #60 tab 10/10/23 Azithromycin [Zithromax Z Pack] 0 tab PO DIRECTED #6 tab 10/14/23 Allergies Allergy/AdvReac Type Severity Reaction Status Date / Time No Known Allergies Allergy Verified 10/14/23 13:45 Review of Systems ROS Statement: Those systems with pertinent positive or pertinent negative responses have been documented in the HPI. ROS Other: All systems not noted in ROS Statement are negative. Past Medical History Past Medical History: Atrial Fibrillation, Hypertension, Prostate Disorder, Sleep Apnea/CPAP/BIPAP Additional Past Medical History / Comment(s): BPH, ELECTROCUTED IN 1985- BODY ACHES. History of Any Multi-Drug Resistant Organisms: None Reported Additional Past Surgical History / Comment(s): CATARACTS, ABD surgery from electrocution Past Anesthesia/Blood Transfusion Reactions: No Reported Reaction Past Psychological History: No Psychological Hx Reported Smoking Status: Former smoker Past Alcohol Use History: Occasional Past Drug Use History: None Reported - Past Family History Mother Family Medical History: No Reported History Father Family Medical History: Congestive Heart Failure (CHF) General Exam Limitations: no limitations General appearance: alert, in no apparent distress Head exam: Present: atraumatic, normocephalic, normal inspection Neck exam: Present: normal inspection. Absent: tenderness, meningismus, lymphadenopathy Respiratory exam: Present: rales, decreased breath sounds. Absent: normal lung sounds bilaterally, respiratory distress, wheezes, rhonchi, stridor Cardiovascular Exam: Present: regular rate, normal rhythm, normal heart sounds. Absent: systolic murmur, diastolic murmur, rubs, gallop, clicks Extremities exam: Present: pedal edema Course Vital Signs 10/14/23 10/14/23 10/14/23 10:29 11:10 12:05 Temperature 97.7 F Pulse Rate 74 70 Respiratory 20 16 16 Rate Blood Pressure 167/98 170/96 O2 Sat by Pulse 95 93 L Oximetry 10/14/23 14:40 Temperature 97.8 F Pulse Rate 70 Respiratory 16 Rate Blood Pressure 181/108 O2 Sat by Pulse 93 L Oximetry EKG Findings - EKG Comments: EKG Findings:: EKG performed at 10: 42 sinus rhythm with a rate of 68 NE 178 QRS 109 QT/QTc 404/422 - EKG Results: EKG: interpreted by ZAYDA Medical Decision Making - Medical Decision Making Was pt. sent in by a medical professional or institution (, PA, MEDICAL TECHNOLOGIST MICROBIOLOGY, urgent care, hospital, or correction...) When possible be specific @ -No Did you speak to anyone other than the patient for history (EMS, parent, family, police, friend...)? What history was obtained from this source @ -No Did you review nursing and triage notes (agree or disagree)? Why? @ -I reviewed and agree with nursing and triage notes Were old charts reviewed (outside hosp., previous admission, EMS record, old EKG, old radiological studies, urgent care reports/EKG's, correction records)? Report findings @ -Reviewed patient records including CBC, cardiology evaluation, echocardiogram showing 50 to 60% EF Differential Diagnosis (chest pain, altered mental status, abdominal pain women, abdominal pain men, vaginal bleeding, weakness, fever, dyspnea, syncope, heada dina, dizziness, GI bleed, back pain, seizure, CVA, palpatations, mental health, musculoskeletal)? @ -Differential Dyspnea: Coronary syndrome, arrhythmia, tamponade, asthma, COPD, pulmonary embolism, pneumonia, pneumothorax, pulmonary effusion, anaphylaxis, diabetic ketoacidosis, flailed chest, pulmonary contusion, diaphragmatic rupture, anemia, neuromuscular, this is not meant to be an all-inclusive list. EKG interpreted by me (3pts min.). @ -As above X-rays interpreted by me (1pt min.). @ -Chest x-ray shows possible developing pneumonia, minimal pulmonary edema CT interpreted by me (1pt min.). @ -None done U/S interpreted by me (1pt. min.). @ -None done What testing was considered but not performed or refused? (CT, X-rays, U/S, labs)? Why? @ -None What meds were considered but not given or refused? Why? @ -None Did you discuss the management of the patient with other professionals (tracey robins i.e. , PA, MEDICAL TECHNOLOGIST MICROBIOLOGY, lab, RT, psych nurse, clinical social worker, proposal writer, teacher, lodge officer, adult protective caseworker)? Give summary @ -No Was smoking cessation discussed for >3mins.? @ -No Was critical care preformed (if so, how long)? @ -No Were there social determinants of health that impacted care today? How? (Homelessness, low income, unemployed, alcoholism, drug addiction, transportation, low edu. Level, literacy, decrease access to med. care, long term, rehab)? @ -No Was there de-escalation of care discussed even if they declined (Discuss DNR or withdrawal of care, Hospice)? DNR status @ -No What co-morbidities impacted this encounter? (DM, HTN, Smoking, COPD, CAD, Cancer, CVA, ARF, Chemo, Hep., AIDS, mental health diagnosis, sleep apnea, morbid obesity)? @ -A-fib Was patient admitted / discharged? Hospital course, mention meds given and route, prescriptions, significant lab abnormalities, going to OR and other pertinent info. @ -Discharge patient felt improved at this time, patient did have some diuresis, patient was able to ambulate with no hypoxia or exertional dyspnea. Patient off ered admission patient declined patient was given Lasix 20 mg IV along with Rocephin and discharged on azithromycin. Undiagnosed new problem with uncertain prognosis? @ -No Drug Therapy requiring intensive monitoring for toxicity (Heparin, Nitro, Insulin, Cardizem)? @ -No Were any procedures done? @ -No Diagnosis/symptom? @ -Pulmonary edema, pneumonia Acute, or Chronic, or Acute on Chronic? @ -Acute Uncomplicated (without systemic symptoms) or Complicated (systemic symptoms)? @ -Complicated Side effects of treatment? @ -No Exacerbation, Progression, or Severe Exacerbation? @ -No Poses a threat to life or bodily function? How? (Chest pain, USA, MD, pneumonia, PE, COPD, DKA, ARF, appy, cholecystitis, CVA, Diverticulitis, Homicidal, Suicidal, threat to staff... and all critical care pts) @ -Yes possible respiratory failure - Lab Data Result diagrams: 10/14/23 11:26 10/14/23 11:26 Lab Results 10/14/23 10/14/23 10/14/23 Range/Units 11:26 11:26 11:26 WBC 6.8 (3.8-10.6) k/uL RBC 4.26 L (4.30-5.90) m/uL Hgb 13.4 (13.0-17.5) gm/dL Hct 40.2 (39.0-53.0) % MCV 94.4 (80.0-100.0) fL MCH 31.5 (25.0-35.0) pg MCHC 33.3 (31.0-37.0) g/dL RDW 15.1 (11.5-15.5) % Plt Count 244 (150-450) k/uL MPV 7.9 Neutrophils % 76 % Lymphocytes % 12 % Monocytes % 7 % Eosinophils % 2 % Basophils % 1 % Neutrophils # 5.2 (1.3-7.7) k/uL Lymphocytes # 0.8 L (1.0-4.8) k/uL Monocytes # 0.4 (0-1.0) k/uL Eosinophils # 0.1 (0-0.7) k/uL Basophils # 0.1 (0-0.2) k/uL Hypochromasia Slight PT 13.5 H (10.0-12.5) sec INR 1.3 H (<1.2) APTT 26.2 (22.0-30.0) sec Sodium 141 (137-145) mmol/L Potassium 3.6 (3.5-5.1) mmol/L Chloride 101 (98-107) mmol/L Carbon Dioxide 31 H (22-30) mmol/L Anion Gap 9 mmol/L BUN 20 (9-20) mg/dL Creatinine 0.96 (0.66-1.25) mg/dL Est GFR (CKD-EPI)AfAm >90 (>60 ml/min/1.73 sqM) Est GFR (CKD-EPI)NonAf 79 (>60 ml/min/1.73 sqM) Glucose 111 H (74-99) mg/dL Calcium 9.1 (8.4-10.2) mg/dL Magnesium 1.9 (1.6-2.3) mg/dL Total Bilirubin 1.4 H (0.2-1.3) mg/dL AST 81 H (17-59) U/L ALT 109 H (4-49) U/L Alkaline Phosphatase 80 (38-126) U/L Troponin I (0.000-0.034) ng/mL NT-Pro-B Natriuret Pep 2730 pg/mL Total Protein 7.6 (6.3-8.2) g/dL Albumin 4.2 (3.5-5.0) g/dL 10/14/23 Range/Units 11:26 WBC (3.8-10.6) k/uL RBC (4.30-5.90) m/uL Hgb (13.0-17.5) gm/dL Hct (39.0-53.0) % MCV (80.0-100.0) fL MCH (25.0-35.0) pg MCHC (31.0-37.0) g/dL RDW (11.5-15.5) % Plt Count (150-450) k/uL MPV Neutrophils % % Lymphocytes % % Monocytes % % Eosinophils % % Basophils % % Neutrophils # (1.3-7.7) k/uL Lymphocytes # (1.0-4.8) k/uL Monocytes # (0-1.0) k/uL Eosinophils # (0-0.7) k/uL Basophils # (0-0.2) k/uL Hypochromasia PT (10.0-12.5) sec INR (<1.2) APTT (22.0-30.0) sec Sodium (137-145) mmol/L Potassium (3.5-5.1) mmol/L Chloride (98-107) mmol/L Carbon Dioxide (22-30) mmol/L Anion Gap mmol/L BUN (9-20) mg/dL Creatinine (0.66-1.25) mg/dL Est GFR (CKD-EPI)AfAm (>60 ml/min/1.73 sqM) Est GFR (CKD-EPI)NonAf (>60 ml/min/1.73 sqM) Glucose (74-99) mg/dL Calcium (8.4-10.2) mg/dL Magnesium (1.6-2.3) mg/dL Total Bilirubin (0.2-1.3) mg/dL AST (17-59) U/L ALT (4-49) U/L Alkaline Phosphatase (38-126) U/L Troponin I 0.030 (0.000-0.034) ng/mL NT-Pro-B Natriuret Pep pg/mL Total Protein (6.3-8.2) g/dL Albumin (3.5-5.0) g/dL Disposition Clinical Impression: Pulmonary edema, Dyspnea, Pneumonia Disposition: HOME SELF-CARE Condition: Stable Instructions (If sedation given, give patient instructions): Pulmonary Edema (ED) Additional Instructions: Please return to the Emergency Department if symptoms worsen or any other concerns. Prescriptions: Azithromycin [Zithromax Z Pack] 0 tab PO DIRECTED #6 tab Is patient prescribed a controlled substance at d/c from ED?: No Referrals: Devonte Baum DO [Primary Care Provider] - 1-2 days Time of Disposition: 14:18
[2023-10-14 12:56] LABS: NT-Pro-B-Type Natriuretic Pept 2730 pg/mL
[2023-10-14] MEDS: cefTRIAXone IN SWFI 1,000 MG/10 ML SYRINGE IVP STA (14:31)
[2023-10-14] MEDS: FUROSEMIDE 10 MG/ML 2 ML VIAL IV ONE (14:33)
[2023-10-14 14:41] VITALS: BP 181/108; TEMP 97.8
== END 2023-10-14 14:45 | disposition home or self-care (01) ==
LOC: EC 10:27
DX: J81.1 Chronic pulmonary edema (principal); J18.9 Pneumonia, unspecified organism; I48.91 Unspecified atrial fibrillation; Z87.891 Personal history of nicotine dependence
CPT/HCPCS: 99285 ×2; 96374 ×2; 96375 ×2; 36415; 93005; 83880; 80053; 83735; 84484; 85025; 85610; 85730; 71046; J1940; J0696

== ENCOUNTER → 2023-11-11 | Outpatient (CLI) | payer MEDICARE ==
[2023-11-11 15:16] LABS: Basophils # (A) 0.06 X 10*3/uL (0.00-0.10); Eosinophils # (A) 0.19 X 10*3/uL (0.04-0.35); HCT 41.7 % (39.6-50.0); HGB 13.9 g/dL (13.0-17.0); Lymphocytes # (A) 0.99 X 10*3/uL (0.90-5.00); Lymphocytes % (A) 15.7 %; MCH 30.7 pg (27.0-32.0); MCHC 33.3 g/dL (32.0-37.0); MCV 92.1 FL (80.0-97.0); Mean Platelet Volume 10.5 FL (9.5-12.2); Monocytes # (A) 0.55 X 10*3/uL (0.20-1.00); Monocytes % (A) 8.7 %; NRBC Per 100 WBC 0 X 10*3/uL (0.00-0.01); Neutrophils # (A) 4.49 X 10*3/uL (1.80-7.70); Neutrophils % (A) 71.3 %; Platelet Count 187 X 10*3/uL (140-440); RBC 4.53 X 10*6/uL (4.40-5.60); RDW 13.8 % (11.5-14.5)
[2023-11-11 18:36] LABS: Blood Urea Nitrogen 23.9 mg/dL (9.0-27.0); Carbon Dioxide 28.6 mmol/L (21.6-31.8); Chloride 101 mmol/L (96-109); Potassium 3.9 mmol/L (3.5-5.5); Sodium 142 mmol/L (135-145)
== END | disposition home or self-care (01) ==
LOC: LABPAT 09:34
PROVIDERS: ATTEND Internal Medicine Interventional Cardiology
DX: Z01.812 Encounter for preprocedural laboratory examination (principal); I38 Endocarditis, valve unspecified; I48.0 Paroxysmal atrial fibrillation; Z86.79 Personal history of other diseases of the circulatory system
CPT/HCPCS: 80051; 82565; 84520; 85025

== ENCOUNTER 2023-11-18 05:55 | Day surgery (SDC) | payer MEDICARE ==
[2023-11-13 10:38] VITALS: BMI 43.3
[2023-11-18] MEDS ORDERED: ALPRAZolam 0.25 MG TAB PO PRN (05:58)
[2023-11-18] MEDS ORDERED: ALPRAZolam 0.5 MG TAB PO PRN (05:58)
[2023-11-18] MEDS ORDERED: HEPARIN SODIUM,PORCINE (1 ML) 2,500 UNIT in SODIUM CHLORIDE 0.9% 250 ML IRRIGATION PRN (05:58)
[2023-11-18] MEDS ORDERED: HEPARIN SODIUM,PORCINE 10,000 UNIT in SODIUM CHLORIDE 0.9% 1,000 ML IRRIGATION PRN (05:58)
[2023-11-18] MEDS ORDERED: NITROGLYCERIN SL TABS 0.4 MG TAB SUBLINGUAL PRN ×2 (05:58→08:35)
[2023-11-18] MEDS: IV FLUID CONTINUATION 1,000 ML IV ONE (06:58)
[2023-11-18] MEDS: SODIUM CHLORIDE 0.9% 1,000 ML in EMPTY BAG 1 BAG IV ONE (06:58)
[2023-11-18] MEDS ORDERED: LIDOCAINE 1% INJ 10MG/ML (20 ML MDV) ONE (07:14)
[2023-11-18] MEDS ORDERED: VERAPAMIL 2.5 MG/ML 2 ML AMP ONE (07:14)
[2023-11-18] MEDS: MIDAZOLAM 2 MG/2 ML VIAL IVP ONE (07:49)
[2023-11-18] MEDS: LIDOCAINE 1% INJ 10MG/ML (30 ML VIAL-PF) SQ ONE (07:50)
[2023-11-18] MEDS: VERAPAMIL SYRINGE (5 MG/10 ML) INTRAARTER ONE (07:51)
[2023-11-18] MEDS: HEPARIN SODIUM 1,000 UN/ML (10ML VL) IVP ONE (07:52)
[2023-11-18] MEDS ORDERED: TICAGRELOR 90 MG TAB ONE (08:13)
[2023-11-18] MEDS: TICAGRELOR 90 MG TAB PO ONE (08:17)
[2023-11-18] MEDS ORDERED: niCARdipine 25 MG/10 ML VIAL ONE (08:21)
[2023-11-18] MEDS ORDERED: fentaNYL (PF) 50 MCG/ML 2 ML AMP ONE (08:24)
[2023-11-18] MEDS: fentaNYL (PF) 50 MCG/1 ML VIAL IVP ONE (08:27)
[2023-11-18] MEDS ORDERED: RX INFO: IV CONTRAST WAS GIVEN 1 EACH MISC MISCELLANE PRN (08:35)
[2023-11-18] MEDS ORDERED: MAG HYDROX/AL HYDROX/SIMETH 30 ML CUP PO PRN (08:35)
[2023-11-18] MEDS ORDERED: ATROPINE SULFATE 0.1 MG/ML 10ML SYRINGE IV PRN (08:35)
[2023-11-18] MEDS ORDERED: ZOLPIDEM 5 MG TAB PO PRN ×2 (08:35→09:47)
[2023-11-18] MEDS: HEPARIN SODIUM 1,000 UN/ML (10ML VL) ONE (08:39)
[2023-11-18] MEDS: IOPAMIDOL-370 200ML BTL INJ ONE (08:40)
--- NOTE | 2023-11-18 08:42 | P.PCN ---
Date of Procedure: 11/18/23 Operative Findings: CARDIAC CATHETERIZATION AND PERCUTANEOUS CORONARY INTERVENTION PERFORMING PHYSICIAN: Tony Segundo MD, VI PROCEDURE PERFORMED: 1. Selective right and left coronary angiogram and left heart catheterization 2. Successful stenting of mid LAD using 3.0 x 15 mm Xience MARYA with an excel lent angiographic results 3. Adjunctive use of IFR wire and IVUS 4. Ultrasound-guided access of the right radial artery INDICATION: Symptomatic 73-year-old gentleman with abnormal myocardial perfusion imaging stress test COMPLICATION: None APPROACH: Right radial LEVEL OF SEDATION: Moderate with the sedation time off 37 minutes PROCEDURE DESCRIPTION: After obtaining informed consent the patient was brought to the cardiac Manager Architecture. The right radial artery was cannulated using micropuncture technique under ultrasound guidance a micropuncture wire passed easily and placed a 6 [place] 11 cm sheath at the right radial artery and subsequently the patient was given 2 mg of verapamil intra-arterial and 5000's of heparin intravenous with additional heparin given throughout the procedure based on the ACT monitoring. Subsequently I did selective right and left coronary angiogram using JR4 and JL 3.5 catheter. Left heart catheterization was performed using the JL 3.5 catheter which crossed the aortic valve. After that I decided to do an IFR of the LAD. After zeroing the Doppler wire and equalizing between the Doppler wire and guiding catheter which was JL 3.5 guiding catheter the left main was engaged and the LAD was wired. The IFR came to be at 0.66. Subsequently I did decide to intervene on the LAD with I did intravascular ultrasound which showed a diameter around 3 mm. Predilatation was performed using 2.5 mm x 12 mm noncompliant balloon before I deployed 3.0 x 15 mm stent where the stent was positioned under fluoroscopic guidance and deployed under 14 brianne for 20 seconds with final angiogram was performed after giving the patient nitroglycerin and nicardipine and that showed excellent angiographic results with KATE-3 flow. The procedure was completed with no complication. SELECTIVE CORONARY ANGIOGRAM: The right coronary artery: Large-caliber vessel and a dominant vessel with intermediate lesion involving the ostial of the RCA Left main: Calcified with mild disease The left circumflex: Large-caliber vessel with mild to moderate disease involving the first obtuse marginal branch of the left circumflex The left anterior descending artery: Large-caliber vessel with tight lesion involving the midportion documented to be flow-limiting by Doppler wire HEMODYNAMICS: LVEDP was 26 mmHg with no significant gradient across aortic valve CONCLUSION: Intermediate lesion involving the ostial RCA Mild to moderate disease involving the first obtuse marginal branch Severe disease involving the mid LAD. I performed PCI of the LAD as described above POSTPROCEDURE MANAGEMENT: 1. Dual antiplatelet therapy using aspirin and Brilinta for at least 6 month 2. Aggressive cholesterol control 3. Follow-up with the patient
[2023-11-18] MEDS ORDERED: FUROSEMIDE 40 MG TAB PO SCH (09:30)
[2023-11-18] MEDS ORDERED: FINASTERIDE 5 MG TAB PO SCH (09:30)
[2023-11-18] MEDS ORDERED: ASPIRIN 81 MG PO SCH (09:30)
[2023-11-18] MEDS ORDERED: APIXABAN 2.5 MG TABLET PO SCH (09:30)
[2023-11-18] MEDS ORDERED: LOSARTAN-HCTZ 50-12.5 MG 1 EACH TAB PO SCH ×2 (09:30→13:15)
[2023-11-18] MEDS ORDERED: METOPROLOL TARTRATE 50 MG TAB PO SCH (09:30)
[2023-11-18] MEDS: ASPIRIN 325 MG TAB PO STA (13:03)
[2023-11-18] MEDS: ATORVASTATIN 80 MG TAB PO STA (13:03)
[2023-11-18] MEDS: LOSARTAN-HCTZ 50-12.5 MG 1 EACH TAB PO SCH (13:22)
[2023-11-18] MEDS: METOPROLOL TARTRATE 50 MG TAB PO STA (13:22)
[2023-11-18] MEDS: FINASTERIDE 5 MG TAB PO SCH (14:57)
[2023-11-18] MEDS: FUROSEMIDE 40 MG TAB PO SCH ×2 (14:57→15:28)
[2023-11-18] MEDS: DUTASTERIDE 0.5 MG PO SCH (15:28)
[2023-11-18] MEDS: ASPIRIN 81 MG PO SCH (15:28)
[2023-11-18] MEDS: APIXABAN 5 MG TAB PO SCH (15:28)
[2023-11-18] MEDS: TICAGRELOR 90 MG TAB PO SCH ×2 (15:29→20:37)
[2023-11-18] MEDS: NON FORMULARY DRUG (Losartan/Hydrochlorothiazide [Losartan-Hctz 100-25 Mg Tab] 1 EACH Tabl PO SCH (15:29)
[2023-11-18] MEDS: METOPROLOL TARTRATE 50 MG TAB PO SCH ×2 (15:29→20:36)
[2023-11-18] MEDS: SODIUM CHLORIDE 0.9% 1,000 ML in EMPTY BAG 1 BAG IV SCH (19:59)
[2023-11-18] MEDS: MULTIVITAMINS, THERA 1 EACH TAB PO SCH (20:37)
[2023-11-18] MEDS: ATORVASTATIN 80 MG TAB PO SCH (20:37)
[2023-11-18] MEDS ORDERED: ATORVASTATIN 80 MG TAB PO SCH (21:00)
[2023-11-18] MEDS ORDERED: MULTIVITAMINS, THERA 1 EACH TAB PO SCH (21:00)
[2023-11-19 06:55] LABS: African American GFR (CKD) 90 (>60 ml/min/1.73 sqM); Non-African American GFR(CKD) 78 (>60 ml/min/1.73 sqM)
[2023-11-19 07:26] VITALS: BP 133/80; PULSE 70; RESP 16; TEMP 98
[2023-11-19] MEDS: ASPIRIN 81 MG PO SCH (08:20)
[2023-11-19] MEDS ORDERED: APIXABAN 2.5 MG TABLET PO SCH (09:00)
--- NOTE | 2023-11-19 11:26 | P.DS ---
Providers Attending physician: Tony Segundo Consults: 11/18/23 08:35 Consult Physician Routine Consulting Provider: [facility] Consult Reason/Comments: Post Interventional patient Do you want consulting provider notified?: Already Contacted Primary care physician: Devonte [facility] Hospital Course: The patient is a pleasant 73-year-old gentleman who underwent yesterday heart catheterization and stenting of the left anterior descending artery He was seen and evaluated this morning with he is asymptomatic and hemodynamically stable. The patient will be discharged home on triple therapy. He will be seen in the office in the next few weeks. The right radial site is soft and nontender with no bruises. Patient Condition at Discharge: Stable Plan - Discharge Summary Discharge Rx Participant: No New Discharge Prescriptions: No Action Losartan/Hydrochlorothiazide [Losartan-Hctz 100-25 mg Tab] 1 tab PO DAILY Multivitamins, Thera [Multivitamin (formulary)] 1 tab PO HS Aspirin 81 mg PO DAILY #30 tab Furosemide [Lasix] 40 mg PO DAILY #30 tab Metoprolol Tartrate [Lopressor] 50 mg PO BID #60 tab Rivaroxaban [Xarelto] 15 mg PO HS Atorvastatin [Lipitor] 80 mg PO HS #30 tab Dutasteride [Avodart] 0.5 mg PO DAILY #30 capsule Ticagrelor [Brilinta] 90 mg PO BID Discharge Medication List Losartan/Hydrochlorothiazide [Losartan-Hctz 100-25 mg Tab] 1 tab PO DAILY 10/28/21 [History] Multivitamins, Thera [Multivitamin (formulary)] 1 tab PO HS 10/07/23 [History] Aspirin 81 mg PO DAILY #30 tab 10/10/23 [Rx] Atorvastatin [Lipitor] 80 mg PO HS #30 tab 10/10/23 [Rx] Dutasteride [Avodart] 0.5 mg PO DAILY #30 capsule 10/10/23 [Rx] Furosemide [Lasix] 40 mg PO DAILY #30 tab 10/10/23 [Rx] Metoprolol Tartrate [Lopressor] 50 mg PO BID #60 tab 10/10/23 [Rx] Rivaroxaban [Xarelto] 15 mg PO HS 11/18/23 [History] Ticagrelor [Brilinta] 90 mg PO BID 11/19/23 [History] Follow up Appointment(s)/Referral(s): Tony Segundo MD [STAFF PHYSICIAN] - 11/25/23 4:45 pm (FOLLOW UP APPOINTMENT MADE. ) Patient Instructions/Handouts: Moderate Sedation (DC), Cardiac Rehabilitation (ED), Coronary Intravascular Stent Placement (DC), After Radial Heart Catheterization (GEN) Activity/Diet/Wound Care/Special Instructions: *NO LIFTING, PUSHING, OR PULLING ANYTHING OVER 5 POUNDS FOR 5 DAYS *NO DRIVING FOR 3 DAYS *YOU CAN REMOVE YOUR DRESSING TOMORROW BUT DO NOT SUBMERSE YOUR PUNCTURE SITE IN WATER FOR A FEW DAYS TO PREVENT INFECTION - SO NO TUB BATHS, POOLS, HOT TUBS, DISHES...ETC *ANY SIGNS OF BLEEDING (HARDNESS, SWELLING, OR EXCESSIVE BRUISING) HOLD DIRECT PRESSURE ON YOUR PUNCTURE SITE AND COME TO THE NEAREST EMERGENCY ROOM TO GET YOUR PUNCTURE SITE LOOKED AT - DO NOT DRIVE YOURSELF! EITHER CALL EMS OR HAVE SOMEONE DRIVE YOU! Discharge Disposition: HOME SELF-CARE
[2023-11-19] MEDS ORDERED: RIVAROXABAN 15 MG TAB PO SCH (17:30)
== END 2023-11-19 10:32 | disposition home or self-care (01) ==
LOC: CATHCVL 05:55 → 6NMEDSUR 08:30 → CATHCVL 09:22
PROVIDERS: ATTEND Internal Medicine Interventional Cardiology
DX: R94.39 Abnormal result of other cardiovascular function study (principal); Z86.79 Personal history of other diseases of the circulatory system; Z79.01 Long term (current) use of anticoagulants; Z79.02 Long term (current) use of antithrombotics/antiplatelets; Z79.82 Long term (current) use of aspirin; Z79.899 Other long term (current) drug therapy; Z95.5 Presence of coronary angioplasty implant and graft
CPT/HCPCS: 82565; 92978; 93005; 93458; 93799

== ENCOUNTER 2023-12-09 08:25 | Inpatient (IN) | payer MEDICARE ==
--- NOTE | 2023-12-09 08:49 | ED ---
Chest Pain HPI - General Chief Complaint: Chest Pain Stated Complaint: SOB,chest pain Time Seen by Provider: 12/09/23 08:30 Source: patient Mode of arrival: wheelchair Limitations: no limitations - History of Present Illness Initial Comments: 73-year-old patient who presents emergency department reporting chest pain. States that he started having chest pain over the weekend. He describes it as a pressure sensation. It has been intermittent. He has no pain at this time. Patient is found to be in A-fib with RVR. Does admit to a history of A-fib. He also has coronary disease and had a stent placed on November [address] Segundo. He has been taking all of his medications as directed. They recently told him to take an extra dose of his Coumadin due to subtherapeutic dosing. Patient denies heart palpitations. No shortness of breath. No history of DVT or PE. No ripping or tearing sensation to his back. No other alleviating, precipitating or modifying factors - Related Data Home Medications Medication Instructions Recorded Confirmed Losartan/Hydrochlorothiazide 1 tab PO DAILY 10/28/21 12/09/23 [Losartan-Hctz 100-25 mg Tab] Ticagrelor [Brilinta] 90 mg PO BID 11/19/23 12/09/23 Metoprolol Tartrate [Lopressor] 75 mg PO BID 12/09/23 12/09/23 Tamsulosin [Flomax] 0.4 mg PO HS 12/09/23 12/09/23 Warfarin Sodium 4 mg PO DAILY 12/09/23 12/09/23 Previous Rx's Medication Instructions Recorded Aspirin 81 mg PO DAILY #30 tab 10/10/23 Atorvastatin [Lipitor] 80 mg PO HS #30 tab 10/10/23 Furosemide [Lasix] 40 mg PO DAILY #30 tab 10/10/23 Allergies Allergy/AdvReac Type Severity Reaction Status Date / Time No Known Allergies Allergy Verified 12/09/23 11:06 Review of Systems ROS Statement: Those systems with pertinent positive or pertinent negative responses have been documented in the HPI. ROS Other: All systems not noted in ROS Statement are negative. Past Medical History Past Medical History: Atrial Fibrillation, Hypertension, Prostate Disorder, Sleep Apnea/CPAP/BIPAP Additional Past Medical History / Comment(s): BPH, ELECTROCUTED IN 1985- BODY ACHES, no device for sleep apnea. History of Any Multi-Drug Resistant Organisms: None Reported Past Surgical History: Heart Catheterization With Stent Additional Past Surgical History / Comment(s): Cataract surgery abdominal surgery due to electrocution. Past Anesthesia/Blood Transfusion Reactions: No Reported Reaction Past Psychological History: No Psychological Hx Reported Smoking Status: Former smoker Past Alcohol Use History: Occasional Past Drug Use History: None Reported - Past Family History Mother Family Medical History: No Reported History Father Family Medical History: Congestive Heart Failure (CHF) General Exam Limitations: no limitations General appearance: alert, in no apparent distress Head exam: Present: atraumatic, normocephalic, normal inspection Eye exam: Present: normal appearance, PERRL, EOMI. Absent: scleral icterus, conjunctival injection, periorbital swelling ENT exam: Present: normal exam, mucous membranes moist Neck exam: Present: normal inspection. Absent: tenderness, meningismus, lymphadenopathy Respiratory exam: Present: normal lung sounds bilaterally. Absent: respiratory distress, wheezes, rales, rhonchi, stridor Cardiovascular Exam: Present: tachycardia, irregular rhythm, normal heart sounds. Absent: systolic murmur, diastolic murmur, rubs, gallop, clicks GI/Abdominal exam: Present: soft, normal bowel sounds. Absent: distended, tenderness, guarding, rebound, rigid Extremities exam: Present: normal inspection, full ROM, normal capillary refill. Absent: tenderness, pedal edema, joint swelling, calf tenderness Back exam: Present: normal inspection Neurological exam: Present: alert, oriented X3, CN II-XII intact Psychiatric exam: Present: normal affect, normal mood Skin exam: Present: warm, dry, intact, normal color. Absent: rash Course Vital Signs 12/09/23 12/09/23 12/09/23 08:27 08:59 10:53 Temperature 98 F Pulse Rate 87 137 H 137 H Pulse Rate [ 137 H [employer] Estate Consultant ] Respiratory 22 18 18 Rate Blood Pressure 123/83 115/73 112/70 O2 Sat by Pulse 98 97 97 Oximetry 12/09/23 12/09/23 12/09/23 12:09 12:49 13:08 Temperature Pulse Rate 156 H 156 H 112 H Pulse Rate [ [employer] Estate [employer]ant ] Respiratory 18 18 18 Rate Blood Pressure 115/73 100/53 102/46 O2 Sat by Pulse 98 98 97 Oximetry 12/09/23 12/09/23 12/09/23 13:43 14:15 15:15 Temperature 97.6 F Pulse Rate 112 H 116 H 140 H Pulse Rate [ [employer] Estate Consultant ] Respiratory 18 18 18 Rate Blood Pressure 94/77 127/70 105/64 O2 Sat by Pulse 97 98 100 Oximetry 12/09/23 12/09/23 12/09/23 16:00 17:00 18:00 Temperature Pulse Rate 129 H 118 H 108 H Pulse Rate [ [employer] Estate Consultant ] Respiratory 18 18 18 Rate Blood Pressure 94/73 110/91 96/62 O2 Sat by Pulse 98 97 97 Oximetry 12/09/23 12/09/23 12/09/23 19:02 19:48 21:32 Temperature Pulse Rate 95 116 H 121 H Pulse Rate [ [employer] Estate Consultant ] Respiratory 18 18 18 Rate Blood Pressure 137/93 137/93 114/96 O2 Sat by Pulse 98 97 96 Oximetry 12/09/23 12/09/23 12/09/23 21:35 21:45 21:55 Temperature Pulse Rate 130 H 140 H 141 H Pulse Rate [ [employer] Estate [employer]ant ] Respiratory Rate Blood Pressure O2 Sat by Pulse Oximetry 12/09/23 12/09/23 12/09/23 22:05 22:15 22:28 Temperature Pulse Rate 120 H 141 H 106 H Pulse Rate [ [employer] Estate Consultant ] Respiratory Rate Blood Pressure O2 Sat by Pulse Oximetry 12/09/23 22:47 Temperature Pulse Rate 87 Pulse Rate [ [employer] Estate Consultant ] Respiratory Rate Blood Pressure O2 Sat by Pulse Oximetry Chest Pain MDM - MDM Was pt. sent in by a medical professional or institution (, PA, TRUST VAULT CUSTODIAN, urgent care, hospital, or assisted...) When possible be specific @ -[No] Did you speak to anyone other than the patient for history (EMS, parent, family, police, friend...)? What history was obtained from this source @ -[No] Did you review nursing and triage notes (agree or disagree)? Why? @ -[I reviewed and agree with nursing and triage notes] Were old charts reviewed (outside hosp., previous admission, EMS record, old EKG, old radiological studies, urgent care reports/EKG's, assisted records)? Report findings @ -I reviewed the cath note from November 17 where patient received systemic Differential Diagnosis (chest pain, altered mental status, abdominal pain women, abdominal pain men, vaginal bleeding, weakness, fever, dyspnea, syncope, headache, dizziness, GI bleed, back pain, seizure, CVA, palpatations, mental health, musculoskeletal)? @ -Differential Palpitations Ventricular arrhythmias, atrial arrhythmias, myocardial infarction, anemia, thyrotoxicosis, electrolyte imbalance, hypokalemia, pulmonary embolism, pulmonary disease, drugs, alcohol, anxiety, stress.... This is not meant to be an all-inclusive list. EKG interpreted by me (3pts min.). @ -yes and demonstrates A-fib with a rate of 142. QRS 97. QTc of 371. No acute ST segment elevations or depressions X-rays interpreted by me (1pt min.). @ -Yes and demonstrates no acute process CT interpreted by me (1pt min.). @ -[None done] U/S interpreted by me (1pt. min.). @ -[None done] What testing was considered but not performed or refused? (CT, X-rays, U/S, labs)? Why? @ -[None] What meds were considered but not given or refused? Why? @ -Cardizem was ordered and started however Dr. Rockwell said to hold off on it Did you discuss the management of the patient with other professionals (professionals i.e. , PA, TRUST VAULT CUSTODIAN, lab, RT, psych nurse, social media designer, asbestos worker, teacher, national service officer, case fitter)? Give summary @ -Spoke with Dr. Gr and Dr Rockwell Was smoking cessation discussed for >3mins.? @ -[No] Was critical care preformed (if so, how long)? @ -Yes, 35 minutes for management of A-fib with RVR Were there social determinants of health that impacted care today? How? (Homelessness, low income, unemployed, alcoholism, drug addiction, trans portation, low edu. Level, literacy, decrease access to med. care, senior living, rehab)? @ -[No] Was there de-escalation of care discussed even if they declined (Discuss DNR or withdrawal of care, Hospice)? DNR status @ -[No] What co-morbidities impacted this encounter? (DM, HTN, Smoking, COPD, CAD, Cancer, CVA, ARF, Chemo, Hep., AIDS, mental health diagnosis, sleep apnea, morbid obesity)? @ -Coronary artery disease, A-fib Was patient admitted / discharged? Hospital course, mention meds given and route, prescriptions, significant lab abnormalities, going to OR and other pertinent info. @ -Upon arrival patient seen and evaluated in room trauma 2. Thorough history and physical exam was performed. IV access was established. Laboratory studies were conducted. Patient is subtherapeutic on his INR and therefore heparin is started. I did initiate a Cardizem drip. I spoke with Dr. Rockwell. He does present to the emergency department and evaluates the patient. He does placed a hold on Cardizem. I spoke with Dr. Gr for admission Undiagnosed new problem with uncertain prognosis? @ -[No] Drug Therapy requiring intensive monitoring for toxicity (Heparin, Nitro, Insulin, Cardizem)? @ -Heparin Were any procedures done? @ -[No] Diagnosis/symptom? @ -Acute chest pain, NSTEMI, A-fib with RVR Acute, or Chronic, or Acute on Chronic? @ -Acute Uncomplicated (without systemic symptoms) or Complicated (systemic symptoms)? @ -Complicated Side effects of treatment? @ -[No] Exacerbation, Progression, or Severe Exacerbation? @ -[No] Poses a threat to life or bodily function? How? (Chest pain, [place], PA, pneumonia, PE, COPD, DKA, ARF, appy, cholecystitis, CVA, Diverticulitis, Homicidal, Suicidal, threat to staff... and all critical care pts) @ -Yes, patient does have elevated troponin level Disposition Clinical Impression: Atrial fibrillation with RVR, Subtherapeutic international normalized ratio (INR), Chest pain, Elevated troponin Disposition: ADMITTED IP TO THIS HOSP Condition: Serious Is patient prescribed a controlled substance at d/c from ED?: No Time of Disposition: 12:32 Decision to Admit Reason: Admit from EC Decision Date: 12/09/23 Decision Time: 12:32
[2023-12-09 09:10] LABS: Basophils % (A) 1 %; Eosinophils # (A) 0.1 k/uL (0-0.7); Eosinophils % (A) 2 %; HCT 46.3 % (39.0-53.0); HGB 15.3 gm/dL (13.0-17.5); Lymphocytes # (A) 1.2 k/uL (1.0-4.8); Lymphocytes % (A) 15 %; MCV 93.9 fL (80.0-100.0); Mean Platelet Volume 7.7; Monocytes # (A) 0.4 k/uL (0-1.0); Monocytes % (A) 5 %; Neutrophils # (A) 5.8 k/uL (1.3-7.7); Neutrophils % (A) 75 %; Platelet Count 251 k/uL (150-450); RBC 4.93 m/uL (4.30-5.90); RDW 14.3 % (11.5-15.5); WBC 7.8 k/uL (3.8-10.6)
[2023-12-09 09:23] LABS: INR 1.2 (<1.2); Partial Thromboplastin Time 24.1 sec (22.0-30.0); Prothrombin Time 12.8 sec (10.0-12.5)
[2023-12-09 09:42] LABS: ALT 56 U/L (4-49); AST 49 U/L (17-59); African American GFR (CKD) 67 (>60 ml/min/1.73 sqM); Alkaline Phosphatase 71 U/L (38-126); Anion Gap 13 mmol/L; Blood Urea Nitrogen 37 mg/dL (9-20); Calcium 9.5 mg/dL (8.4-10.2); Carbon Dioxide 26 mmol/L (22-30); Chloride 102 mmol/L (98-107); Glucose 187 mg/dL (74-99); Magnesium 1.8 mg/dL (1.6-2.3); Non-African American GFR(CKD) 58 (>60 ml/min/1.73 sqM); Potassium 3.3 mmol/L (3.5-5.1); Sodium 141 mmol/L (137-145); Total Protein 7.5 g/dL (6.3-8.2)
[2023-12-09] MEDS: SODIUM CHLORIDE 0.9% 1,000 ML IV ONE ×2 (09:42→12:59)
[2023-12-09 09:51] LABS: NT-Pro-B-Type Natriuretic Pept 7210 pg/mL
--- NOTE | 2023-12-09 10:25 | XR ---
EXAMINATION TYPE: XR chest 2V DATE OF EXAM: 12/09/2023 COMPARISON: 10/14/2023, 01/29/2023 CT INDICATION: Chest pain TECHNIQUE: Frontal and lateral views of the chest are obtained. FINDINGS: The heart size is normal. The pulmonary vasculature is normal. Several small nodules of approximately 1.5 cm. Additional workup with chest CT recommended for interv al change. No suspicious focal consolidations evident. IMPRESSION: 1. No acute pulmonary process. 2. Several nodules present are present on prior CT. CT recommended to assess stability [facility], , 12/09/2023 10:23 AM
[2023-12-09] MEDS ORDERED: NALOXONE 0.4 MG/ML 1 ML VIAL IV PRN (12:33)
[2023-12-09] MEDS: HEPARIN SOD,PORK IN 0.45% NACL 25,000 UNIT in 0.45% NACL 1 250ML.BAG IV SCH (13:00)
[2023-12-09] MEDS: DILTIAZEM DRIP BOLUS FROM BAG 1 MG SOLN IV ONE (13:02)
[2023-12-09] MEDS: DILTIAZEM 125 MG in SODIUM CHLORIDE 0.9% 100 ML IV SCH (13:03)
[2023-12-09] MEDS: ASPIRIN 81 MG PO STA (13:04)
[2023-12-09] MEDS: POTASSIUM CHLORIDE 20 MEQ in WATER FOR INJECTION 1 100ML.BAG IVPB STA (13:04)
--- NOTE | 2023-12-09 13:56 | P.CRDCN ---
History of Present Illness Consult date: 12/09/23 History of present illness: History of Present Illness: The patient is a 73-year-old male, followed by Dr. Segundo underwent stenting of his mid LAD on November 17, persistent atrial fibrillation who presented with symptoms of dizziness, dyspnea and some chest discomfort. He feels that the discomfort is different than the symptoms that brought him in prior to his PCI. At that time he presented with evidence of CHF with preserved systolic function. Atrial fibrillation was diagnosed at that time. He is on warfarin but he has been subtherapeutic. He is feeling some palpitations in addition to the dizziness and the progressive dyspnea. He has no significant peripheral edema. He denies any PND or orthopnea. In the emergency room he was noted to be in atrial fibrillation with rapid ventricular response with mild troponin elevation. He has a history of hypertension, hyperlipidemia. He is a non- smoker nondiabetic. Medications: Aspirin, Coumadin, Brilinta 90 mg twice a day, Flomax 0.4 mg daily, metoprolol 75 mg twice a day, losartan HCT 100-25 mg daily, furosemide 40 mg daily, Lipitor 80 mg daily Review of Systems: Respiratory: He has dyspnea exertion and occasional cough but no recent wheezing GI: No nausea or vomiting . No history of peptic ulcer disease. No recent GI bleed. : No hematuria or dysuria. Nervous System: No stroke or seizure. Physical Examination: 73-year-old male, alert oriented no apparent distress,Blood pressure 102/50, Heart rate 112 Head: Normocephalic. Eyes: Sclerae nonicteric. Neck: Good carotid upstroke, no bruit, no jugular venous distention. Lungs: Clear to auscultation. Heart: Irregular rate and rhythm, S1-S2, no S3, no rub. Systolic ejection murmur. Abdomen: Soft nontender, positive bowel sounds no organomegaly. Obese Extremities: No edema, intact distal pulses. Labs: INR 1.2, potassium 3.3, hemoglobin 15.3. BUN 37, creatinine 1.23. NT proBNP 7210 with troponin of 0.153. Chest x-ray with no acute infiltrate and nodules noted in the past EKG: Atrial fibrillation with rapid ventricular response and nonspecific ST-T wave changes Impression: 1. Atrial fibrillation with rapid ventricular response, subtherapeutic INR 2. Elevated troponin and elevated NT proBNP. According to him his chest discomfort is different from the symptoms he had prior to his PCI. The elevated troponin could be related to his atrial fibrillation and CHF with preserved systolic function, rule out acute ischemia 3. CHF with preserved systolic function 4. Hypertension 5. Hyperlipidemia 6. Lung nodules noted in the past Plan: 1. IV diuretics for 24 hours 2. Increase beta-shawn, depending on the ventricular response the patient may be a candidate down the road for either ablation or cardioversion. 3. Add Farxiga and spironolactone 4. Follow troponin and if further elevation is noted proceed with repeat co ronary angiography 5. Depending on his progress further recommendations will be made, thank you for this consult we will follow with you. Past Medical History Past Medical History: Atrial Fibrillation, Hypertension, Prostate Disorder, Sleep Apnea/CPAP/BIPAP Additional Past Medical History / Comment(s): BPH, ELECTROCUTED IN 1985- BODY ACHES, no device for sleep apnea. History of Any Multi-Drug Resistant Organisms: None Reported Past Surgical History: Heart Catheterization With Stent Additional Past Surgical History / Comment(s): Cataract surgery abdominal surgery due to electrocution. Past Anesthesia/Blood Transfusion Reactions: No Reported Reaction Past Psychological History: No Psychological Hx Reported Smoking Status: Former smoker Past Alcohol Use History: Occasional Past Drug Use History: None Reported - Past Family History Mother Family Medical History: No Reported History Father Family Medical History: Congestive Heart Failure (CHF) Medications and Allergies Home Medications Medication Instructions Recorded Confirmed Type Losartan/Hydrochlorothiazide 1 tab PO DAILY 10/28/21 12/09/23 History [Losartan-Hctz 100-25 mg Tab] Aspirin 81 mg PO DAILY #30 tab 10/10/23 12/09/23 Rx Atorvastatin [Lipitor] 80 mg PO HS #30 tab 10/10/23 12/09/23 Rx Furosemide [Lasix] 40 mg PO DAILY #30 tab 10/10/23 12/09/23 Rx Ticagrelor [Brilinta] 90 mg PO BID 11/19/23 12/09/23 History Metoprolol Tartrate [Lopressor] 75 mg PO BID 12/09/23 12/09/23 History Tamsulosin [Flomax] 0.4 mg PO HS 12/09/23 12/09/23 History Warfarin Sodium 4 mg PO DAILY 12/09/23 12/09/23 History Allergies Allergy/AdvReac Type Severity Reaction Status Date / Time No Known Allergies Allergy Verified 12/09/23 11:06 Physical Exam Vitals: Vital Signs Temp Pulse Pulse Resp BP Pulse Ox 12/09/23 13:43 97.6 F 112 H 18 94/77 97 12/09/23 13:08 112 H 18 102/46 97 12/09/23 12:49 156 H 18 100/53 98 12/09/23 12:09 156 H 18 115/73 98 12/09/23 10:53 137 H 18 112/70 97 12/09/23 08:59 137 H 137 H 18 115/73 97 12/09/23 08:27 98 F 87 22 123/83 98 Intake and Output 12/08/23 12/09/23 12/09/23 22:59 06:59 14:59 Intake Total 0.417 Balance 0.417 Intake: Intake, IV Titration 0.417 Amount Diltiazem 125 mg In 0.417 Sodium Chloride 0.9% 100 ml @ 5 MG/HR 5 mls/hr IV .Q24H [facility] Rx#:[id number] Other: Weight 136.078 kg Results 12/09/23 09:03 12/09/23 09:03 Cardiac Enzymes 12/09/23 12/09/23 Range/Units 09:03 09:03 AST 49 (17-59) U/L Troponin I 0.153 H* (0.000-0.034) ng/mL Coagulation 12/09/23 Range/Units 09:03 PT 12.8 H (10.0-12.5) sec APTT 24.1 (22.0-30.0) sec CBC 12/09/23 Range/Units 09:03 WBC 7.8 (3.8-10.6) k/uL RBC 4.93 (4.30-5.90) m/uL Hgb 15.3 (13.0-17.5) gm/dL Hct 46.3 (39.0-53.0) % Plt Count 251 (150-450) k/uL Comprehensive Metabolic Panel 12/09/23 Range/Units 09:03 Sodium 141 (137-145) mmol/L Potassium 3.3 L (3.5-5.1) mmol/L Chloride 102 (98-107) mmol/L Carbon Dioxide 26 (22-30) mmol/L BUN 37 H (9-20) mg/dL Creatinine 1.23 (0.66-1.25) mg/dL Glucose 187 H (74-99) mg/dL Calcium 9.5 (8.4-10.2) mg/dL AST 49 (17-59) U/L ALT 56 H (4-49) U/L Alkaline Phosphatase 71 (38-126) U/L Total Protein 7.5 (6.3-8.2) g/dL Albumin 4.0 (3.5-5.0) g/dL Current Medications Generic Name Dose Route Start Last Admin Trade Name Freq PRN Reason Stop Dose Admin Heparin Sodium (Porcine) 0 unit 12/09/23 12:14 Heparin Sodium 1,000 Un/Ml (10ml Vl) IV PER PROTOCOL PRN Low PTT Protocol Heparin Sodium/Sodium Chloride 250 mls @ 10 mls/hr 12/09/23 12:15 12/09/23 13:00 25,000 unit/ Sodium Chloride IV 7.3487 units/kg/hr .Q24H [facility] 10 mls/hr Administration Protocol 7.3487 UNITS/KG/HR Potassium Chloride 20 meq/ IV 100 mls @ 50 mls/hr 12/09/23 12:16 12/09/23 13:04 Solution IVPB 12/09/23 14:15 50 mls/hr ONCE STA Administration Naloxone HCl 0.2 mg 12/09/23 12:33 Naloxone 0.4 Mg/Ml 1 Ml Vial IV Q2M PRN Opioid Reversal Intake and Output 12/08/23 12/09/23 12/09/23 22:59 06:59 14:59 Intake Total 0.417 Balance 0.417 Intake: Intake, IV Titration 0.417 Amount Diltiazem 125 mg In 0.417 Sodium Chloride 0.9% 100 ml @ 5 MG/HR 5 mls/hr IV .Q24H [facility] Rx#:[id number] Other: Weight 136.078 kg Patient Weight 12/10/23 06:59 Weight 136.078 kg 12/09/23 09:03 12/09/23 09:03
[2023-12-09] MEDS: SPIRONOLACTONE 25 MG TAB PO SCH (14:11)
[2023-12-09] MEDS: FUROSEMIDE 10 MG/ML 4 ML VIAL IV SCH (14:11)
[2023-12-09] MEDS: DAPAGLIFLOZIN PROPANEDIOL 10 MG TABLET PO SCH (14:11)
--- NOTE | 2023-12-09 14:52 | P.HPIM ---
History of Present Illness H&P Date: 12/09/23 History of present illness; patient is a 73-year-old gentleman with past medical history significant for coronary disease status post stenting of LAD, CHF, hypertension, hyperlipidemia presented to the ER for dizziness and chest discomfort. Patient said that he was all right 2 days back and he started experiencing chest discomfort that was central location, pressure-like, intermittent, nonradiating, no aggravating or relieving factors associated with this chest pressure. Patient also complaining of dizziness. Denied any shortness of breath. Denies any orthopnea or PND. No complaint of swelling of feet. Patient was complaining of palpitations. Because of the symptoms, patient presented to the ER Initial lab work done in the ER showed WBC 9.8, hemoglobin 15.3, platelet count 251, D-dimer 0.34 sodium 141, potassium 3.3, BUN 37, creatinine 1.23, AST 40 and ALT 56, troponin 0.153 EKG done in the ER showed heart rate of 142, irregular rate and rhythm, no ST segment elevation or depression seen, no T-wave inversions seen. Chest x-ray done in the ER showed no acute pulmonary process, several nodules present are present on the prior CT Patient admitted to internal medicine service REVIEW OF SYSTEMS: CONSTITUTIONAL: No fever, no malaise, no fatigue. HEENT: No recent visual problems or hearing problems. Denied any sore throat. CARDIOVASCULAR: As mentioned above PULMONARY: As mentioned above GASTROINTESTINAL: No diarrhea, no nausea, no vomiting, no abdominal pain. NEUROLOGICAL: No headaches, no weakness, no numbness. HEMATOLOGICAL: Denies any bleeding or petechiae. GENITOURINARY: Denies any burning micturition, frequency, or urgency. MUSCULOSKELETAL/RHEUMATOLOGICAL: Denies any joint pain, swelling, or any muscle pain. ENDOCRINE: Denies any polyuria or polydipsia. The rest of the 14-point review of systems is negative. PHYSICAL EXAMINATION: GENERAL: The patient is alert and oriented x3, not in any acute distress. Well developed, well nourished. HEENT: Pupils are round and equally reacting to light. EOMI. No scleral icterus. No conjunctival pallor. Normocephalic, atraumatic. No pharyngeal erythema. No thyromegaly. CARDIOVASCULAR: S1 and S2 present. No murmurs, rubs, or gallops. Tachycardic PULMONARY: Chest is clear to auscultation, no wheezing or crackles. ABDOMEN: Soft, nontender, nondistended, normoactive bowel sounds. No palpable organomegaly. MUSCULOSKELETAL: No joint swelling or deformity. EXTREMITIES: No cyanosis, clubbing, or pedal edema. NEUROLOGICAL: Gross neurological examination did not reveal any focal deficits. SKIN: No rashes. Assessment and plan A-fib with RVR NSTEMI Hyperlipidemia Hypertension CHF with preserved systolic function Lung nodules noted in the past Monitor vital signs Monitor CBC Monitor CMP Continue telemetry monitoring Trend troponins Strict I's and O's, daily weights Start pharmacy dose heparin Start IV Lasix 40 g every 12 Start Cardizem drip Resume home med Consult cardiology Labs and medication were reviewed.. Continue same treatment. Continue with symptomatic treatment. Resume home medication. Monitor labs and vitals. DVT and GI prophylaxis. Further recommendations as per clinical course of the patient Dictation was produced using [employer] dictation software. please excuse any g rammatical, word or spelling errors. Past Medical History Past Medical History: Atrial Fibrillation, Hypertension, Prostate Disorder, Sleep Apnea/CPAP/BIPAP Additional Past Medical History / Comment(s): BPH, ELECTROCUTED IN 1985- BODY ACHES, no device for sleep apnea. History of Any Multi-Drug Resistant Organisms: None Reported Past Surgical History: Heart Catheterization With Stent Additional Past Surgical History / Comment(s): Cataract surgery abdominal surgery due to electrocution. Past Anesthesia/Blood Transfusion Reactions: No Reported Reaction Past Psychological History: No Psychological Hx Reported Smoking Status: Former smoker Past Alcohol Use History: Occasional Past Drug Use History: None Reported - Past Family History Mother Family Medical History: No Reported History Father Family Medical History: Congestive Heart Failure (CHF) Medications and Allergies Home Medications Medication Instructions Recorded Confirmed Type Losartan/Hydrochlorothiazide 1 tab PO DAILY 10/28/21 12/09/23 History [Losartan-Hctz 100-25 mg Tab] Aspirin 81 mg PO DAILY #30 tab 10/10/23 12/09/23 Rx Atorvastatin [Lipitor] 80 mg PO HS #30 tab 10/10/23 12/09/23 Rx Furosemide [Lasix] 40 mg PO DAILY #30 tab 10/10/23 12/09/23 Rx Ticagrelor [Brilinta] 90 mg PO BID 11/19/23 12/09/23 History Metoprolol Tartrate [Lopressor] 75 mg PO BID 12/09/23 12/09/23 History Tamsulosin [Flomax] 0.4 mg PO HS 12/09/23 12/09/23 History Warfarin Sodium 4 mg PO DAILY 12/09/23 12/09/23 History Allergies Allergy/AdvReac Type Severity Reaction Status Date / Time No Known Allergies Allergy Verified 12/09/23 11:06 Physical Exam Vitals: Vital Signs Temp Pulse Pulse Resp BP Pulse Ox 12/09/23 14:15 116 H 18 127/70 98 12/09/23 13:43 97.6 F 112 H 18 94/77 97 12/09/23 13:08 112 H 18 102/46 97 12/09/23 12:49 156 H 18 100/53 98 12/09/23 12:09 156 H 18 115/73 98 12/09/23 10:53 137 H 18 112/70 97 12/09/23 08:59 137 H 137 H 18 115/73 97 12/09/23 08:27 98 F 87 22 123/83 98 Intake and Output 12/08/23 12/09/23 12/09/23 22:59 06:59 14:59 Intake Total 0.417 Balance 0.417 Intake: Intake, IV Titration 0.417 Amount Diltiazem 125 mg In 0.417 Sodium Chloride 0.9% 100 ml @ 5 MG/HR 5 mls/hr IV .Q24H [facility] Rx#:[id number] Other: Weight 136.078 kg Results CBC & Chem 7: 12/09/23 09:03 12/09/23 09:03 Labs: Abnormal Lab Results - Last 24 Hours (Table) 12/09/23 12/09/23 12/09/23 Range/Units 09:03 09:03 09:03 PT 12.8 H (10.0-12.5) sec INR 1.2 H (<1.2) Potassium 3.3 L (3.5-5.1) mmol/L BUN 37 H (9-20) mg/dL Glucose 187 H (74-99) mg/dL ALT 56 H (4-49) U/L Troponin I 0.153 H* (0.000-0.034) ng/mL
[2023-12-09] MEDS: METOPROLOL TARTRATE 25 MG TAB PO SCH (15:19)
[2023-12-09] MEDS: HEPARIN SODIUM 1,000 UN/ML (10ML VL) IV PRN (19:19)
[2023-12-09] MEDS: TICAGRELOR 90 MG TAB PO SCH (20:28)
[2023-12-09] MEDS: TAMSULOSIN 0.4 MG CAP.ER.24H PO SCH (20:28)
[2023-12-09] MEDS: ATORVASTATIN 80 MG TAB PO SCH (20:28)
[2023-12-10 07:43] LABS: Basophils % (A) 0 %; Eosinophils # (A) 0.2 k/uL (0-0.7); Eosinophils % (A) 3 %; HCT 40.8 % (39.0-53.0); HGB 13.4 gm/dL (13.0-17.5); Lymphocytes # (A) 1.4 k/uL (1.0-4.8); Lymphocytes % (A) 19 %; MCH 30.6 pg (25.0-35.0); MCHC 32.8 g/dL (31.0-37.0); MCV 93.1 fL (80.0-100.0); Monocytes # (A) 0.4 k/uL (0-1.0); Monocytes % (A) 6 %; Neutrophils # (A) 5.5 k/uL (1.3-7.7); Neutrophils % (A) 72 %; Platelet Count 197 k/uL (150-450); RBC 4.38 m/uL (4.30-5.90); RDW 14.7 % (11.5-15.5); WBC 7.7 k/uL (3.8-10.6)
[2023-12-10 07:53] LABS: INR 1.3 (<1.2); Prothrombin Time 14.1 sec (10.0-12.5)
[2023-12-10 08:05] LABS: African American GFR (CKD) 61 (>60 ml/min/1.73 sqM); Anion Gap 12 mmol/L; Blood Urea Nitrogen 37 mg/dL (9-20); Carbon Dioxide 26 mmol/L (22-30); Chloride 102 mmol/L (98-107); Glucose 124 mg/dL (74-99); Non-African American GFR(CKD) 53 (>60 ml/min/1.73 sqM); Potassium 3.1 mmol/L (3.5-5.1); Sodium 140 mmol/L (137-145)
[2023-12-10] MEDS: ASPIRIN 81 MG PO SCH (08:14)
[2023-12-10] MEDS: LOSARTAN-HCTZ 50-12.5 MG 1 EACH TAB PO SCH (08:17)
[2023-12-10] MEDS: FUROSEMIDE 40 MG TAB PO SCH (08:48)
[2023-12-10] MEDS ORDERED: LOSARTAN 50 MG TAB PO SCH (09:00)
--- NOTE | 2023-12-10 10:08 | P.PN ---
Subjective Progress Note Date: 12/10/23 History of Present Illness: The patient is a 73-year-old male, followed by Dr. Segundo underwent stenting of his mid LAD on November 17, persistent atrial fibrillation who presented with symptoms of dizziness, dyspnea and some chest discomfort. He feels that the discomfort is different than the symptoms that brought him in prior to his PCI. At that time he presented with evidence of CHF with preserved systolic function. Atrial fibrillation was diagnosed at that time. He is on warfarin but he has been subtherapeutic. He is feeling some palpitations in addition to the dizziness and the progressive dyspnea. He has no significant peripheral edema. He denies any PND or orthopnea. In the emergency room he was noted to be in atrial fibrillation with rapid ventricular response with mild troponin el evation. He has a history of hypertension, hyperlipidemia. He is a non-smoker nondiabetic. Medications: Aspirin, Coumadin, Brilinta 90 mg twice a day, Flomax 0.4 mg daily, metoprolol 75 mg twice a day, losartan HCT 100-25 mg daily, furosemide 40 mg daily, Lipitor 80 mg daily Labs: INR 1.2, potassium 3.3, hemoglobin 15.3. BUN 37, creatinine 1.23. NT proBNP 7210 with troponin of 0.153. Chest x-ray with no acute infiltrate and nodules noted in the past EKG: Atrial fibrillation with rapid ventricular response and nonspecific ST-T wave changes 12/09 Patient is seen today in the emergency center waiting for a bed on the cardiac stepdown unit. He states he is feeling a lot better today. He has converted to sinus rhythm. He denies having chest pain or pressure, no shortness of breath, no dizziness. Regarding anticoagulation, patient was on Coumadin at home. He states he has tried Eliquis in the past but it was too expensive. INR is 1.3. CBC is unremarkable. BUN 37 creatinine 1.34. Repeat troponins were 0.271 and 0.497. Patient has been on Lasix 40 mg IV every 12 hours. Physical Examination: 73-year-old male, alert oriented no apparent distress,Blood pressure 102/50, Heart rate 112 Head: Normocephalic. Eyes: Sclerae nonicteric. Neck: Good carotid upstroke, no bruit, no jugular venous distention. Lungs: Clear to auscultation. Heart: Regular rate and rhythm, S1-S2, no S3, no rub. Systolic ejection murmur. Abdomen: Soft nontender, positive bowel sounds no organomegaly. Obese Extremities: No edema, intact distal pulses. Impression: 1. Persistent atrial fibrillation with rapid ventricular response, subtherapeutic INR 2. Elevated troponin and elevated NT proBNP. According to him his chest discomfort is different from the symptoms he had prior to his PCI. The elevated troponin could be related to his atrial fibrillation and CHF with preserved systolic function, rule out acute ischemia 3. CHF with preserved systolic function 4. Hypertension 5. Hyperlipidemia 6. Lung nodules noted in the past Plan: 1. Transition IV Lasix to oral 40 mg twice daily 2. Continue patient on Lopressor 75 mg 3 times daily which was increased 3. Continue the addition of Farxiga and spironolactone 4. Patient will be resumed on Coumadin and hopefully tomorrow INR will be therapeutic and at that point, patient will be cleared for discharge. Nurse practitioner note has been reviewed, I agree with documented findings and plan of care. Patient was seen and examined. Objective - Vital Signs Vital signs: Vital Signs Temp 97.6 F 12/09/23 13:43 Pulse 78 12/10/23 08:10 Resp 18 12/10/23 08:10 BP 105/80 12/10/23 08:10 Pulse Ox 98 12/10/23 08:10 FiO2 Intake & Output 12/09/23 12/10/23 12/10/23 18:59 06:59 18:59 Intake Total 0.417 63.333 Balance 0.417 63.333 Weight 136.078 kg Intake: Intake, IV Titration 0.417 63.333 Amount Diltiazem 125 mg In 0.417 Sodium Chloride 0.9% 100 ml @ 5 MG/HR 5 mls/hr IV .Q24H [facility] Rx#:[id number] Heparin Sod,Pork in 0.45% 63.333 NaCl 25,000 unit In 0.45 % NaCl 1 250ml.bag @ 7. 3487 UNITS/KG/HR 10 mls/ hr IV .Q24H [facility] Rx#: [id number] - Labs CBC & Chem 7: 12/10/23 07:28 12/10/23 07:28 Labs: Abnormal Lab Results - Last 24 Hours (Table) 12/09/23 12/09/23 12/09/23 Range/Units 09:03 09:03 09:03 PT 12.8 H (10.0-12.5) sec INR 1.2 H (<1.2) APTT (22.0-30.0) sec Potassium 3.3 L (3.5-5.1) mmol/L BUN 37 H (9-20) mg/dL Creatinine (0.66-1.25) mg/dL Glucose 187 H (74-99) mg/dL ALT 56 H (4-49) U/L Troponin I 0.153 H* (0.000-0.034) ng/mL 12/09/23 12/09/23 12/09/23 Range/Units 14:09 18:02 18:02 PT (10.0-12.5) sec INR (<1.2) APTT 35.3 H (22.0-30.0) sec Potassium (3.5-5.1) mmol/L BUN (9-20) mg/dL Creatinine (0.66-1.25) mg/dL Glucose (74-99) mg/dL ALT (4-49) U/L Troponin I 0.271 H* 0.497 H* (0.000-0.034) ng/mL 12/10/23 12/10/23 12/10/23 Range/Units 02:08 07:28 07:28 PT 14.1 H (10.0-12.5) sec INR 1.3 H (<1.2) APTT 59.1 H (22.0-30.0) sec Potassium 3.1 L (3.5-5.1) mmol/L BUN 37 H (9-20) mg/dL Creatinine 1.34 H (0.66-1.25) mg/dL Glucose 124 H (74-99) mg/dL ALT (4-49) U/L Troponin I (0.000-0.034) ng/mL
--- NOTE | 2023-12-10 10:25 | P.PN ---
Subjective History of present illness; patient is a 73-year-old gentleman with past medical history significant for coronary disease status post stenting of LAD, CHF, hypertension, hyperlipidemia presented to the ER for dizziness and chest discomfort. Patient said that he was all right 2 days back and he started experiencing chest discomfort that was central location, pressure-like, intermittent, nonradiating, no aggravating or relieving factors associated with this chest pressure. Patient also complaining of dizziness. Denied any shortness of breath. Denies any orthopnea or PND. No complaint of swelling of feet. Patient was complaining of palpitations. Because of the symptoms, patient presented to the ER Initial lab work done in the ER showed WBC 9.8, hemoglobin 15.3, platelet count 251, D-dimer 0.34 sodium 141, potassium 3.3, BUN 37, creatinine 1.23, AST 40 and ALT 56, troponin 0.153 EKG done in the ER showed heart rate of 142, irregular rate and rhythm, no ST segment elevation or depression seen, no T-wave inversions seen. Chest x-ray done in the ER showed no acute pulmonary process, several nodules present are present on the prior CT Patient admitted to internal medicine service 12/09 Patient with no chest pain or dyspnea today No palpitation or significant arrhythmia Creatinine 1.2 up to 1.3 IV Lasix switched to oral dose 40 mg twice daily Resume his warfarin today will continue on heparin drip. Patient confirms to me he takes warfarin at home for A-fib with no previous history of DVT/PE or intracardiac thrombus Cardiology team does not plan for cardiac cath for now Possible discharge in 24 to 48 hours if he keeps improving Review of systems CONSTITUTIONAL: No fever, no malaise, no fatigue. HEENT: No recent visual problems or hearing problems. Denied any sore throat. CARDIOVASCULAR: No orthopnea, PND, no palpitations, no syncope. PULMONARY: No shortness of breath, no cough, no hemoptysis. GASTROINTESTINAL: No diarrhea, no nausea, no vomiting, no abdominal pain. Normoactive bowel sounds. NEUROLOGICAL: No headaches, no weakness, no numbness. HEMATOLOGICAL: Denies any bleeding or petechiae. Active Medications Generic Name Dose Route Start Last Admin Trade Name Freq PRN Reason Stop Dose Admin Atorvastatin Calcium 80 mg 12/09/23 21:00 12/09/23 20:28 Atorvastatin 80 Mg Tab PO 80 mg HS [facility] Administration Dapagliflozin 10 mg 12/09/23 14:00 12/10/23 08:15 Dapagliflozin Propanediol 10 Mg Tablet PO 10 mg DAILY [facility] Administration Furosemide 40 mg 12/10/23 09:00 12/10/23 08:48 Furosemide 40 Mg Tab PO 40 mg BID@0900,1600 [facility] Administration Heparin Sodium (Porcine) 0 unit 12/09/23 12:14 12/09/23 19:19 Heparin Sodium 1,000 Un/Ml (10ml Vl) IV 3,400 unit PER PROTOCOL PRN Administration Low PTT Protocol Heparin Sodium/Sodium Chloride 250 mls @ 10 mls/hr 12/09/23 12:15 12/09/23 19:20 25,000 unit/ Sodium Chloride IV 9.348 units/kg/hr .Q24H [facility] 12.721 mls/hr Titration Protocol 7.3487 UNITS/KG/HR Losartan Potassium 100 mg 12/11/23 09:00 Losartan 50 Mg Tab PO DAILY [facility] Metoprolol Tartrate 75 mg 12/09/23 16:00 12/10/23 08:14 Metoprolol Tartrate 25 Mg Tab PO 75 mg TID [facility] Administration Miscellaneous Information 1 each 12/10/23 08:39 Warfarin Per Pharmacy MISCELLANE DIRECTED PRN Per Protocol Protocol Naloxone HCl 0.2 mg 12/09/23 12:33 Naloxone 0.4 Mg/Ml 1 Ml Vial IV Q2M PRN Opioid Reversal Spironolactone 25 mg 12/09/23 13:45 12/10/23 08:17 Spironolactone 25 Mg Tab PO 25 mg DAILY [facility] Administration Tamsulosin HCl 0.4 mg 12/09/23 21:00 12/09/23 20:28 Tamsulosin 0.4 Mg Cap.Er.24h PO 0.4 mg HS [facility] Administration Ticagrelor 90 mg 12/09/23 21:00 12/10/23 08:17 Ticagrelor 90 Mg Tab PO 90 mg BID [facility] Administration Warfarin Sodium 5 mg 12/10/23 18:00 Warfarin 5 Mg Tab PO 12/10/23 18:01 ONCE@1800 ONE Objective - Vital Signs Vital signs: Vital Signs Temp 97.6 F 12/09/23 13:43 Pulse 78 12/10/23 08:10 Resp 18 12/10/23 08:10 BP 105/80 12/10/23 08:10 Pulse Ox 98 12/10/23 08:10 FiO2 Intake & Output 12/09/23 12/10/23 12/10/23 18:59 06:59 18:59 Intake Total 0.417 63.333 Balance 0.417 63.333 Weight 136.078 kg Intake: Intake, IV Titration 0.417 63.333 Amount Diltiazem 125 mg In 0.417 Sodium Chloride 0.9% 100 ml @ 5 MG/HR 5 mls/hr IV .Q24H [facility] Rx#:[id number] Heparin Sod,Pork in 0.45% 63.333 NaCl 25,000 unit In 0.45 % NaCl 1 250ml.bag @ 7. 3487 UNITS/KG/HR 10 mls/ hr IV .Q24H [facility] Rx#: [id number] - Exam GENERAL: The patient is alert and oriented x3, not in any acute distress. Well developed, well nourished. HEENT: Pupils are round and equally reacting to light. EOMI. No scleral icterus. No conjunctival pallor. Normocephalic, atraumatic. No pharyngeal erythema. No thyromegaly. CARDIOVASCULAR: S1 and S2 present. No murmurs, rubs, or gallops. PULMONARY: Chest is clear to auscultation, no wheezing , no crackles. ABDOMEN: Soft, nontender, nondistended, normoactive bowel sounds. No palpable organomegaly. MUSCULOSKELETAL: No joint swelling or deformity. EXTREMITIES: No cyanosis, clubbing, or pedal edema. NEUROLOGICAL: Gross neurological examination did not reveal any focal deficits. SKIN: No rashes. no petechiae. - Labs CBC & Chem 7: 12/10/23 07:28 12/10/23 07:28 Labs: Abnormal Lab Results - Last 24 Hours (Table) 12/09/23 12/09/23 12/09/23 Range/Units 14:09 18:02 18:02 PT (10.0-12.5) sec INR (<1.2) APTT 35.3 H (22.0-30.0) sec Potassium (3.5-5.1) mmol/L BUN (9-20) mg/dL Creatinine (0.66-1.25) mg/dL Glucose (74-99) mg/dL Troponin I 0.271 H* 0.497 H* (0.000-0.034) ng/mL 12/10/23 12/10/23 12/10/23 Range/Units 02:08 07:28 07:28 PT 14.1 H (10.0-12.5) sec INR 1.3 H (<1.2) APTT 59.1 H (22.0-30.0) sec Potassium 3.1 L (3.5-5.1) mmol/L BUN 37 H (9-20) mg/dL Creatinine 1.34 H (0.66-1.25) mg/dL Glucose 124 H (74-99) mg/dL Troponin I (0.000-0.034) ng/mL Assessment and Plan Assessment: Chest pain/non-STEMI Several lung nodules Acute on chronic CHF, preserved ejection fraction A-fib with RVR, currently rate controlled. On Coumadin Obesity with BMI of 41.8 Hypertension Sleep apnea BPH Plan: IV Lasix switched to oral dose Continue with heparin drip and resume warfarin 5 mg Continue with aspirin and Brilinta Cardiology consult On metoprolol 75 mg with dose increased to 3 times daily Consult pulmonary team for bilateral lung nodules Labs and medication were reviewed.. Continue same treatment. Continue with symptomatic treatment. Resume home medication. Monitor labs and vitals. DVT and GI prophylaxis. Further recommendations as per clinical course of the patient DVT prophylaxis: heparin and Coumadin GI Prophylaxis: Pepcid Prognosis is guarded
[2023-12-10] MEDS: WARFARIN 5 MG TAB PO ONE (17:56)
[2023-12-10] MEDS: POTASSIUM CHLORIDE ER 20 MEQ TAB.ER PO STA (20:52)
[2023-12-11 02:47] LABS: INR 1.3 (<1.2); Partial Thromboplastin Time 58.8 sec (22.0-30.0); Prothrombin Time 13.5 sec (10.0-12.5)
[2023-12-11 03:12] LABS: African American GFR (CKD) 59 (>60 ml/min/1.73 sqM); Anion Gap 7 mmol/L; Blood Urea Nitrogen 40 mg/dL (9-20); Calcium 9.2 mg/dL (8.4-10.2); Carbon Dioxide 26 mmol/L (22-30); Chloride 103 mmol/L (98-107); Glucose 118 mg/dL (74-99); Non-African American GFR(CKD) 51 (>60 ml/min/1.73 sqM); Potassium 2.9 mmol/L (3.5-5.1); Sodium 136 mmol/L (137-145)
[2023-12-11] MEDS ORDERED: Magnesium Replacement Protocol 1 EACH MISC MISCELLANE PRN (07:32)
[2023-12-11] MEDS ORDERED: Potassium Replacement Protocol 1 EACH MISC MISCELLANE PRN (07:32)
--- NOTE | 2023-12-11 07:50 | P.PN ---
Subjective History of present illness; patient is a 73-year-old gentleman with past medical history significant for coronary disease status post stenting of LAD, CHF, hypertension, hyperlipidemia presented to the ER for dizziness and chest discomfort. Patient said that he was all right 2 days back and he started experiencing chest discomfort that was central location, pressure-like, intermittent, nonradiating, no aggravating or relieving factors associated with this chest pressure. Patient also complaining of dizziness. Denied any shortness of breath. Denies any orthopnea or PND. No complaint of swelling of feet. Patient was complaining of palpitations. Because of the symptoms, patient presented to the ER Initial lab work done in the ER showed WBC 9.8, hemoglobin 15.3, platelet count 251, D-dimer 0.34 sodium 141, potassium 3.3, BUN 37, creatinine 1.23, AST 40 and ALT 56, troponin 0.153 EKG done in the ER showed heart rate of 142, irregular rate and rhythm, no ST segment elevation or depression seen, no T-wave inversions seen. Chest x-ray done in the ER showed no acute pulmonary process, several nodules present are present on the prior CT Patient admitted to internal medicine service 12/09 Patient with no chest pain or dyspnea today No palpitation or significant arrhythmia Creatinine 1.2 up to 1.3 IV Lasix switched to oral dose 40 mg twice daily Resume his warfarin today will continue on heparin drip. Patient confirms to me he takes warfarin at home for A-fib with no previous history of DVT/PE or intracardiac thrombus Cardiology team does not plan for cardiac cath for now Possible discharge in 24 to 48 hours if he keeps improving 12/10 No chest pain, no dyspnea I INR is 1.3, will going to give more Coumadin tonight. He is on heparin drip Low potassium 2.9 replace and monitor level. Currently he is on oral Lasix 40 mg twice daily Objective - Vital Signs Vital signs: Vital Signs Temp 98.1 F 12/11/23 03:59 Pulse 69 12/11/23 03:59 Resp 18 12/11/23 03:59 BP 96/54 12/11/23 03:59 Pulse Ox 94 L 12/11/23 03:59 FiO2 Intake & Output 12/10/23 12/11/23 12/11/23 18:59 06:59 18:59 Intake Total 186.667 540 Balance 186.667 540 Weight 136.078 kg 109.5 kg Intake: Intake, IV Titration 186.667 Amount Heparin Sod,Pork in 0.45% 186.667 NaCl 25,000 unit In 0.45 % NaCl 1 250ml.bag @ 7. 3487 UNITS/KG/HR 10 mls/ hr IV .Q24H [facility] Rx#: [id number] Oral 540 Other: Voiding Method Toilet # Voids 2 - Exam GENERAL: The patient is alert and oriented x3, not in any acute distress. Well developed, well nourished. HEENT: Pupils are round and equally reacting to light. EOMI. No scleral icterus. No conjunctival pallor. Normocephalic, atraumatic. No pharyngeal erythema. No thyromegaly. CARDIOVASCULAR: S1 and S2 present. No murmurs, rubs, or gallops. PULMONARY: Chest is clear to auscultation, no wheezing , no crackles. ABDOMEN: Soft, nontender, nondistended, normoactive bowel sounds. No palpable organomegaly. MUSCULOSKELETAL: No joint swelling or deformity. EXTREMITIES: No cyanosis, clubbing, or pedal edema. NEUROLOGICAL: Gross neurological examination did not reveal any focal deficits. SKIN: No rashes. no petechiae. - Labs CBC & Chem 7: 12/10/23 07:28 12/11/23 02:14 Labs: Abnormal Lab Results - Last 24 Hours (Table) 12/10/23 12/10/23 12/11/23 Range/Units 07:28 07:28 02:14 PT 14.1 H 13.5 H (10.0-12.5) sec INR 1.3 H 1.3 H (<1.2) APTT 58.8 H (22.0-30.0) sec Sodium (137-145) mmol/L Potassium 3.1 L (3.5-5.1) mmol/L BUN 37 H (9-20) mg/dL Creatinine 1.34 H (0.66-1.25) mg/dL Glucose 124 H (74-99) mg/dL 12/11/23 Range/Units 02:14 PT (10.0-12.5) sec INR (<1.2) APTT (22.0-30.0) sec Sodium 136 L (137-145) mmol/L Potassium 2.9 L (3.5-5.1) mmol/L BUN 40 H (9-20) mg/dL Creatinine 1.37 H (0.66-1.25) mg/dL Glucose 118 H (74-99) mg/dL Assessment and Plan Assessment: Chest pain/non-STEMI Several lung nodules Acute on chronic CHF, preserved ejection fraction A-fib with RVR, currently rate controlled. On Coumadin Obesity with BMI of 41.8 Hypertension Sleep apnea BPH Plan: IV Lasix switched to oral dose Continue with heparin drip and resume warfarin 5 mg Continue with aspirin and Brilinta Cardiology consult On metoprolol 75 mg with dose increased to 3 times daily Consult pulmonary team for bilateral lung nodules Labs and medication were reviewed.. Continue same treatment. Continue with symptomatic treatment. Resume home medication. Monitor labs and vitals. DVT and GI prophylaxis. Further recommendations as per clinical course of the patient DVT prophylaxis: heparin and Coumadin GI Prophylaxis: Pepcid Prognosis is guarded
[2023-12-11] MEDS: LOSARTAN 50 MG TAB PO SCH (08:49)
[2023-12-11] MEDS: POTASSIUM CHLORIDE ER 20 MEQ TAB.ER PO SCH ×2 (08:53→18:27)
--- NOTE | 2023-12-11 09:30 | P.PN ---
Subjective Progress Note Date: 12/11/23 73-year-old male patient who is coming into the hospital because of chest pain and dizziness. The pain is central location, pressure sensation, intermittent, no radiation. She also felt dizzy. In the emergency, EKG was done and the patient had atrial fibrillation with rapid ventricular response. No significant ST segment elevation or depression. Chest x-ray showed bilateral pulmonary nodules. For that reason, pulmonary consultation was requested. The patient is known to have coronary artery disease and she has undergone previous cardiac catheterization and stenting of the LAD. She has history of congestive heart failure, hypertension and hyperlipidemia. The blood work showed a WBC count of 7.7 with a hemoglobin 13.4 and a platelet count of 197. She has a BUN of 37 with a creatinine of 1.3. Troponins were elevated at 0.10.2 and 0.4 respectively and the patient ruled in for an acute non-ST segment elevation myocardial infarction. Sodium was at 140 with a potassium level of 3.1 and a serum bicarb was 26. proBNP level was 7210. The patient was seen by cardiology regarding atrial fibrillation and acute non-ST segment ovation myocardial infarction. No plans for any further cardiac intervention. The troponin elevation was thought to be related to atrial fibrillation with RVR and the patient accordingly was placed on Lopressor 75 mg 3 times daily and she was asked to continue the diuretics and she was placed on oral Lasix and Farxiga and Aldactone. However previous echocardiogram had shown a preserved LV function with an ejection fraction of 55 to 60% and no significant valvular abnormalities and this was an echocardiogram that was done on 10/08/2023. Noted the patient underwent a PCI of the mid LAD on 11/18/2023. Looking back on the records, the patient during her hospitalization back in September 2023, underwent a CT of the chest and based on my review of the CAT scan, the patient has bilateral pulmonary nodules where there was a stable 12 mm nodule in the posterior left lower lobe, pleural-based 7 mm nodule on the right and another 14 mm nodule in the right lower lobe and upon comparing the images to a previous CAT scan from 01/30/2024, those thought to be relatively stable. In fact, those nodules go back to February 2022 and the patient has been seen in our office by Dr. Donovan and they are being monitored and surveilled. I reviewed the CAT scan images particularly the 1 that was done on 03/06/2022 and compared to the 1 done on 10/07/2023. There is some slight growth in the pulmonary nodule in the right lung base that was pleural-based. At the same time, there is a new nodule in the left lower lobe measuring 12 mm in size which is a new finding it was not present. This makes me suspicious for an underlying metastatic disease. On a separate note, the patient is morbidly obese and she has obstructive sleep apnea and she has been utilizing CPAP therapy. 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 Objective - Vital Signs Vital signs: Vital Signs Temp 97.9 F 12/11/23 08:45 Pulse 76 12/11/23 08:45 Resp 17 12/11/23 08:45 BP 113/58 12/11/23 08:45 Pulse Ox 93 L 12/11/23 08:45 FiO2 Intake & Output 12/10/23 12/11/23 12/11/23 18:59 06:59 18:59 Intake Total 186.667 540 Balance 186.667 540 Weight 136.078 kg 109.5 kg Intake: Intake, IV Titration 186.667 Amount Heparin Sod,Pork in 0.45% 186.667 NaCl 25,000 unit In 0.45 % NaCl 1 250ml.bag @ 7. 3487 UNITS/KG/HR 10 mls/ hr IV .Q24H [facility] Rx#: [id number] Oral 540 Other: Voiding Method Toilet # Voids 2 - Exam physical exam revealed 73-year-old white male, obese, in no distress. Head: Atraumatic, normocephalic. HEENT: Anicteric sclerae, pink and moist conjunctivae. Extraocular movements intact, pupils are reactive to light they are round and equal. External inspection of ears and nose showed normal mucosa. Oral mucosa, soft and hard palate tongue and posterior pharynx are intact.Mallampati class IV. Neck: Supple no neck masses, no JVD, no thyroid enlargement, no adenopathy. Lungs: Symmetrical expansion, clear breath sounds bilaterally, no rhonchi and no wheezes. CVS: Regular rate and rhythm, normal S1 and S2, no gallops, no murmur, no rubs. Abdomen: Soft, nontender, no megaly, no rebound, no guarding, positive bowel sounds. Extremities: No clubbing, no edema, no cyanosis, 2+ pulses in upper and lower extremities. Musculoskeletal: Muscle strength and tone normal. Neurologic: Alert and oriented 3, normal affect, no focal neurologic deficits. - Labs CBC & Chem 7: 12/10/23 07:28 12/11/23 02:14 Labs: Abnormal Lab Results - Last 24 Hours (Table) 12/11/23 12/11/23 Range/Units 02:14 02:14 PT 13.5 H (10.0-12.5) sec INR 1.3 H (<1.2) APTT 58.8 H (22.0-30.0) sec Sodium 136 L (137-145) mmol/L Potassium 2.9 L (3.5-5.1) mmol/L BUN 40 H (9-20) mg/dL Creatinine 1.37 H (0.66-1.25) mg/dL Glucose 118 H (74-99) mg/dL Assessment and Plan Plan: Chest pain under investigation. The patient had elevation in troponin that was thought to be a nonspecific finding as the patient was in atrial fibrillation with rapid ventricular response at the time of admission. The patient is known to have coronary disease and the patient has undergone recent coronary angioplasty and stenting of the LAD. Echo Technician on the case. atrial fibrillation with rapid ventricular response status post ALMA and cardioversion on 10/09/2023. Bilateral pulmonary nodules, originally identified on a CAT scan of the chest that was done on 10/28/2021 and the patient since then has undergone a series of CAT scan of the chest most recent of which was done on 10/07/2023. Based on my comparison of the CAT scan, there is interval increase in the size of the pulmonary nodules which obviously makes me suspicious for malignancy and metastatic disease. The patient has follow-up with Dr. Donovan on outpatient basis and further investigation would obviously be needed Severe obstructive sleep apnea with an AHI of 111 and the patient was given CPAP therapy pressure of 15 cm of water and he has not been using the CPAP machine due to oral dryness BPH Hypertension CHF with preserved LV function Obesity with a BMI of 41.8 Plan Management of atrial fibrillation per cardiology. The patient is currently on metoprolol 75 mg p.o. 3 times daily and the patient is on IV heparin. Patient h as been maintained on warfarin on outpatient basis and the most recent INR is down to 1.3, subtherapeutic Patient was also started on a combination of Farxiga and Aldactone In regards to the pulmonary nodules, I would suggest an outpatient PET/CT and further discussion is to be done on outpatient basis regarding the need for a biopsy of the pulmonary nodules for tissue diagnosis specially with the PET scan turned out to be negative. Based on my review of the CAT scan findings, there is evolution of new nodules in the left lower lobe and interval increase in size of the few of the nodules compared to the CAT scan of the chest that was done 2021. Metastatic disease cannot be completely ruled out. Continue titration of CPAP therapy Will follow
[2023-12-11] MEDS ORDERED: MAGNESIUM HYDROXIDE 2,400 MG/30 ML CUP PO PRN (10:23)
--- NOTE | 2023-12-11 12:08 | P.PN ---
Subjective Progress Note Date: 12/11/23 History of Present Illness: The patient is a 73-year-old male, followed by Dr. Segundo underwent stenting of his mid LAD on November 17, persistent atrial fibrillation who presented with symptoms of dizziness, dyspnea and some chest discomfort. He feels that the discomfort is different than the symptoms that brought him in prior to his PCI. At that time he presented with evidence of CHF with preserved systolic function. Atrial fibrillation was diagnosed at that time. He is on warfarin but he has been subtherapeutic. He is feeling some palpitations in addition to the dizziness and the progressive dyspnea. He has no significant peripheral edema. He denies any PND or orthopnea. In the emergency room he was noted to be in atrial fibrillation with rapid ventricular response with mild troponin el evation. He has a history of hypertension, hyperlipidemia. He is a non-smoker nondiabetic. Medications: Aspirin, Coumadin, Brilinta 90 mg twice a day, Flomax 0.4 mg daily, metoprolol 75 mg twice a day, losartan HCT 100-25 mg daily, furosemide 40 mg daily, Lipitor 80 mg daily Labs: INR 1.2, potassium 3.3, hemoglobin 15.3. BUN 37, creatinine 1.23. NT proBNP 7210 with troponin of 0.153. Chest x-ray with no acute infiltrate and nodules noted in the past EKG: Atrial fibrillation with rapid ventricular response and nonspecific ST-T wave changes 12/09 Patient is seen today in the emergency center waiting for a bed on the cardiac stepdown unit. He states he is feeling a lot better today. He has converted to sinus rhythm. He denies having chest pain or pressure, no shortness of breath, no dizziness. Regarding anticoagulation, patient was on Coumadin at home. He states he has tried Eliquis in the past but it was too expensive. INR is 1.3. CBC is unremarkable. BUN 37 creatinine 1.34. Repeat troponins were 0.271 and 0.497. Patient has been on Lasix 40 mg IV every 12 hours. 12/10 Patient states that he is feeling better today. No chest pain no shortness of breath no dizziness, no palpitations. INR is at 1.3 and patient remains on heparin drip. He did receive Coumadin 5 mg last night. Telemetry is sinus rhythm. Blood pressure 96/54, heart rate 69, pulse ox 94% on room air. Losartan was held this morning by nursing due to soft blood pressure. Patient is currently on oral Lasix 40 mg twice daily. Physical Examination: 73-year-old male, alert oriented no apparent distress,Blood pressure 102/50, Heart rate 112 Head: Normocephalic. Eyes: Sclerae nonicteric. Neck: Good carotid upstroke, no bruit, no jugular venous distention. Lungs: Clear to auscultation. Heart: Regular rate and rhythm, S1-S2, no S3, no rub. Systolic ejection murmur. Abdomen: Soft nontender, positive bowel sounds no organomegaly. Obese Extremities: No edema, intact distal pulses. Impression: 1. Persistent atrial fibrillation with rapid ventricular response, subtherapeutic INR 2. Elevated troponin and elevated NT proBNP. According to him his chest discomfort is different from the symptoms he had prior to his PCI. The elevated troponin could be related to his atrial fibrillation and CHF with preserved systolic function, rule out acute ischemia 3. CHF with preserved systolic function 4. Hypertension 5. Hyperlipidemia 6. Lung nodules noted in the past Plan: Continue patient on the following cardiac medications: Atorvastatin 80 mg at bedtime, Farxiga 10 mg daily, Lasix 40 mg oral twice daily, losartan 100 mg daily, Lopressor 75 mg 3 times daily, Aldactone 25 mg daily, Brilinta 90 mg twice daily Continue warfarin dosed by pharmacy Monitor INR Continue heparin drip until INR is therapeutic Further recommendations as patient progresses. Nurse practitioner note has been reviewed, I agree with documented findings and plan of care. Patient was seen and examined. Objective - Vital Signs Vital signs: Vital Signs Temp 97.9 F 12/11/23 08:45 Pulse 76 12/11/23 08:45 Resp 17 12/11/23 08:45 BP 113/58 12/11/23 08:45 Pulse Ox 93 L 12/11/23 08:45 FiO2 Intake & Output 12/10/23 12/11/23 12/11/23 18:59 06:59 18:59 Intake Total 186.667 540 Balance 186.667 540 Weight 136.078 kg 109.5 kg Intake: Intake, IV Titration 186.667 Amount Heparin Sod,Pork in 0.45% 186.667 NaCl 25,000 unit In 0.45 % NaCl 1 250ml.bag @ 7. 3487 UNITS/KG/HR 10 mls/ hr IV .Q24H [facility] Rx#: [id number] Oral 540 Other: Voiding Method Toilet # Voids 2 - Labs CBC & Chem 7: 12/10/23 07:28 12/11/23 02:14 Labs: Abnormal Lab Results - Last 24 Hours (Table) 12/11/23 12/11/23 Range/Units 02:14 02:14 PT 13.5 H (10.0-12.5) sec INR 1.3 H (<1.2) APTT 58.8 H (22.0-30.0) sec Sodium 136 L (137-145) mmol/L Potassium 2.9 L (3.5-5.1) mmol/L BUN 40 H (9-20) mg/dL Creatinine 1.37 H (0.66-1.25) mg/dL Glucose 118 H (74-99) mg/dL
[2023-12-11] MEDS: WARFARIN 7.5 MG TAB PO ONE (16:18)
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
[2023-12-12 01:57] LABS: INR 1.3 (<1.2); Partial Thromboplastin Time 62.9 sec (22.0-30.0); Prothrombin Time 13.8 sec (10.0-12.5)
[2023-12-12 07:45] VITALS: RESP 17
[2023-12-12 08:40] LABS: INR 1.3 (<1.2); Prothrombin Time 13.7 sec (10.0-12.5)
[2023-12-12 08:48] LABS: Magnesium 2.3 mg/dL (1.6-2.3); Potassium 3.6 mmol/L (3.5-5.1)
[2023-12-12] MEDS: APIXABAN 5 MG TAB PO SCH (12:11)
--- NOTE | 2023-12-12 12:53 | P.PN ---
Subjective Progress Note Date: 12/12/23 History of Present Illness: The patient is a 73-year-old male, followed by Dr. Segundo underwent stenting of his mid LAD on November 17, persistent atrial fibrillation who presented with symptoms of dizziness, dyspnea and some chest discomfort. He feels that the discomfort is different than the symptoms that brought him in prior to his PCI. At that time he presented with evidence of CHF with preserved systolic function. Atrial fibrillation was diagnosed at that time. He is on warfarin but he has been subtherapeutic. He is feeling some palpitations in addition to the dizziness and the progressive dyspnea. He has no significant peripheral edema. He denies any PND or orthopnea. In the emergency room he was noted to be in atrial fibrillation with rapid ventricular response with mild troponin el evation. He has a history of hypertension, hyperlipidemia. He is a non-smoker nondiabetic. Medications: Aspirin, Coumadin, Brilinta 90 mg twice a day, Flomax 0.4 mg daily, metoprolol 75 mg twice a day, losartan HCT 100-25 mg daily, furosemide 40 mg daily, Lipitor 80 mg daily Labs: INR 1.2, potassium 3.3, hemoglobin 15.3. BUN 37, creatinine 1.23. NT proBNP 7210 with troponin of 0.153. Chest x-ray with no acute infiltrate and nodules noted in the past EKG: Atrial fibrillation with rapid ventricular response and nonspecific ST-T wave changes 12/09 Patient is seen today in the emergency center waiting for a bed on the cardiac stepdown unit. He states he is feeling a lot better today. He has converted to sinus rhythm. He denies having chest pain or pressure, no shortness of breath, no dizziness. Regarding anticoagulation, patient was on Coumadin at home. He states he has tried Eliquis in the past but it was too expensive. INR is 1.3. CBC is unremarkable. BUN 37 creatinine 1.34. Repeat troponins were 0.271 and 0.497. Patient has been on Lasix 40 mg IV every 12 hours. 12/10 Patient states that he is feeling better today. No chest pain no shortness of breath no dizziness, no palpitations. INR is at 1.3 and patient remains on heparin drip. He did receive Coumadin 5 mg last night. Telemetry is sinus rhythm. Blood pressure 96/54, heart rate 69, pulse ox 94% on room air. Losartan was held this morning by nursing due to soft blood pressure. Patient is currently on oral Lasix 40 mg twice daily. 12/11 Patient's INR remains at 1.3 despite receiving Coumadin each night and has been continued on heparin drip. Discussed with the patient that he may be difficult to dose on the Coumadin as his numbers have not budged on the INR. He is agreeable to try Eliquis and follow-up in the office. [facility] will be covering 1 month of Eliquis and once in the office, insurance coverage will be investigated. Blood pressure 133/59, heart rate 73, pulse ox 95% on room air. Patient remains in a sinus rhythm. Physical Examination: 73-year-old male, alert oriented no apparent distress Head: Normocephalic. Eyes: Sclerae nonicteric. Neck: Good carotid upstroke, no bruit, no jugular venous distention. Lungs: Clear to auscultation. Heart: Regular rate and rhythm, S1-S2, no S3, no rub. Systolic ejection murmur. Abdomen: Soft nontender, positive bowel sounds no organomegaly. Obese Extremities: No edema, intact distal pulses. Impression: Persistent atrial fibrillation with rapid ventricular response, currently in sinus rhythm Subtherapeutic INR Elevated troponin and elevated NT proBNP. According to him his chest discomfort is different from the symptoms he had prior to his PCI. The elevated troponin could be related to his atrial fibrillation and CHF with preserved systolic function, rule out acute ischemia CHF with preserved systolic function Hypertension Hyperlipidemia Lung nodules noted in the past Plan: Continue patient on the following cardiac medications: Atorvastatin 80 mg at bedtime, Farxiga 10 mg daily, Lasix 40 mg oral twice daily, losartan 100 mg daily, Lopressor 75 mg 3 times daily, Aldactone 25 mg daily, Brilinta 90 mg twice daily Discontinue heparin drip and Coumadin Start patient on Eliquis 5 mg twice daily Patient is cleared for discharge from cardiology and will follow-up in the office with Dr. Segundo in 1 week. Nurse practitioner note has been reviewed, I agree with documented findings and plan of care. Patient was seen and examined. Objective - Vital Signs Vital signs: Vital Signs Temp 97.6 F 12/12/23 07:44 Pulse 73 12/12/23 07:44 Resp 17 12/12/23 07:44 BP 133/59 12/12/23 07:44 Pulse Ox 95 12/12/23 07:44 FiO2 Intake & Output 12/11/23 12/12/23 12/12/23 18:59 06:59 18:59 Intake Total 340 193.43 370 Balance 340 193.43 370 Weight 134.4 kg Intake: IV 20 10 Invasive Line 2 20 10 Intake, IV Titration 173.43 Amount Heparin Sod,Pork in 0.45% 173.43 NaCl 25,000 unit In 0.45 % NaCl 1 250ml.bag @ 7. 3487 UNITS/KG/HR 10 mls/ hr IV .Q24H [facility] Rx#: [id number] Oral 340 360 Other: Voiding Method Toilet Toilet Toilet # Voids 1 1 # Bowel Movements 0 - Labs CBC & Chem 7: 12/10/23 07:28 12/12/23 07:51 Labs: Abnormal Lab Results - Last 24 Hours (Table) 12/12/23 12/12/23 Range/Units 01:15 07:51 PT 13.8 H 13.7 H (10.0-12.5) sec INR 1.3 H 1.3 H (<1.2) APTT 62.9 H (22.0-30.0) sec
--- NOTE | 2023-12-12 13:56 | P.PN ---
Subjective Progress Note Date: 12/12/232023, the patient is being seen for a follow-up. Doing well. No speci fic complaints. The patient was started on anticoagulation with warfarin. PT/INR remains therapeutic. Based on all this, he is going to be discharged home on anticoagulation with Eliquis and he was started on his starting Dosepak. He continues to be on Brilinta. The patient will come and see him back in office regarding his obstructive sleep apnea. 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 Objective - Vital Signs Vital signs: Vital Signs Temp 97.6 F 12/12/23 07:44 Pulse 73 12/12/23 07:44 Resp 17 12/12/23 07:44 BP 133/59 12/12/23 07:44 Pulse Ox 95 12/12/23 07:44 FiO2 Intake & Output 12/11/23 12/12/23 12/12/23 18:59 06:59 18:59 Intake Total 340 193.43 370 Balance 340 193.43 370 Weight 134.4 kg Intake: IV 20 10 Invasive Line 2 20 10 Intake, IV Titration 173.43 Amount Heparin Sod,Pork in 0.45% 173.43 NaCl 25,000 unit In 0.45 % NaCl 1 250ml.bag @ 7. 3487 UNITS/KG/HR 10 mls/ hr IV .Q24H [facility] Rx#: [id number] Oral 340 360 Other: Voiding Method Toilet Toilet Toilet # Voids 1 1 # Bowel Movements 0 - Exam physical exam revealed 73-year-old white male, obese, in no distress. Head: Atraumatic, normocephalic. HEENT: Anicteric sclerae, pink and moist conjunctivae. Extraocular movements intact, pupils are reactive to light they are round and equal. External inspection of ears and nose showed normal mucosa. Oral mucosa, soft and hard palate tongue and posterior pharynx are intact.Mallampati class IV. Neck: Supple no neck masses, no JVD, no thyroid enlargement, no adenopathy. Lungs: Symmetrical expansion, clear breath sounds bilaterally, no rhonchi and no wheezes. CVS: Regular rate and rhythm, normal S1 and S2, no gallops, no murmur, no rubs. Abdomen: Soft, nontender, no megaly, no rebound, no guarding, positive bowel so unds. Extremities: No clubbing, no edema, no cyanosis, 2+ pulses in upper and lower extremities. Musculoskeletal: Muscle strength and tone normal. Neurologic: Alert and oriented 3, normal affect, no focal neurologic deficits. - Labs CBC & Chem 7: 12/10/23 07:28 12/12/23 07:51 Labs: Abnormal Lab Results - Last 24 Hours (Table) 12/12/23 12/12/23 Range/Units 01:15 07:51 PT 13.8 H 13.7 H (10.0-12.5) sec INR 1.3 H 1.3 H (<1.2) APTT 62.9 H (22.0-30.0) sec Assessment and Plan Plan: Chest pain under investigation. The patient had elevation in troponin that was thought to be a nonspecific finding as the patient was in atrial fibrillation with rapid ventricular response at the time of admission. The patient is known to have coronary disease and the patient has undergone recent coronary angioplasty and stenting of the LAD. Refiner Operator on the case. atrial fibrillation with rapid ventricular response status post ALMA and cardioversion on 10/09/2023. Bilateral pulmonary nodules, originally identified on a CAT scan of the chest that was done on 10/28/2021 and the patient since then has undergone a series of CAT scan of the chest most recent of which was done on 10/07/2023. Based on my comparison of the CAT scan, there is interval increase in the size of the pulmonary nodules which obviously makes me suspicious for malignancy and metastatic disease. The patient has follow-up with Dr. Donovan on outpatient basis and further investigation would obviously be needed Severe obstructive sleep apnea with an AHI of 111 and the patient has maintained on CPAP therapy pressure of 15 cm of water BPH Hypertension CHF with preserved LV function Obesity with a BMI of 41.8 Plan The patient will be discharged home today on Eliquis and Brilinta. Outpatient follow-up regarding ZITA treatment and the patient will need to go back to his obstructive sleep apnea treatment with CPAP and necessary changes and adjustment will be done to make the treatment more comfortable and successful. Management of atrial fibrillation per cardiology. The patient is currently on metoprolol 75 mg p.o. 3 times daily The patient was started on anticoagulation with Eliquis. Continue Brilinta Patient was also started on a combination of Farxiga and Aldactone In regards to the pulmonary nodules, I would suggest an outpatient PET/CT and further discussion is to be done on outpatient basis regarding the need for a biopsy of the pulmonary nodules for tissue diagnosis specially with the PET scan turned out to be negative. Based on my review of the CAT scan findings, there is evolution of new nodules in the left lower lobe and interval increase in size of the few of the nodules compared to the CAT scan of the chest that was done 2021. Metastatic disease cannot be completely ruled out. I recommend an outpatient PET scan. Continue titration of CPAP therapy Possible discharge home today.
[2023-12-12 14:27] VITALS: BP 109/61; TEMP 97.5
[2023-12-12 16:34] VITALS: PULSE 78
[2023-12-12] MEDS ORDERED: WARFARIN 7.5 MG TAB PO ONE (18:00)
--- NOTE | 2023-12-12 21:56 | P.DS ---
Providers Date of admission: 12/09/23 12:34 Attending physician: Alexia Shannon Consults: 12/09/23 12:33 Consult Physician Urgent Consulting Provider: [facility] Consult Reason/Comments: acute chest pain, afib with rvr, nstemi Do you want consulting provider notified?: Yes 12/10/23 10:25 Consult Physician Routine Consulting Provider: Lillian Naqvi Consult Reason/Comments: lung nodules Do you want consulting provider notified?: Yes Primary care physician: Devonte [facility] Hospital Course: Diagnoses: Elevated troponin with atypical chest pain, thought secondary to A-fib and CHF. Several lung nodules Acute on chronic CHF, preserved ejection fraction A-fib with RVR, currently rate controlled. On Coumadin Obesity with BMI of 41.8 Hypertension Sleep apnea BPH Hospital course: History of present illness; patient is a 73-year-old gentleman with past medical history significant for coronary disease status post stenting of LAD, CHF, hypertension, hyperlipidemia presented to the ER for dizziness and chest discomfort. Patient said that he was all right 2 days back and he started experiencing chest discomfort that was central location, pressure-like, however patient evaluated by spinneret cleaner who thought his chest pain is different than his usual typical chest pain. Patient remains clinically stable with no further pain. Patient also was with A-fib and RVR on admission, his heart rate is better controlled after increasing metoprolol 75 mg twice daily to 3 times daily. Also Aldactone and Farxiga were added. Hydrochlorothiazide was discontinued and oral Lasix increased from once daily and to twice daily upon discharge. Patient was on warfarin with subtherapeutic INR but improved with giving her dose of Coumadin. As such of Coumadin failure under spinneret cleaner recommendation patient was started with Eliquis, his co-pay is more than 2 $50 per month, patient is aware and looks like he cannot afford it, he is going to follow-up with his spinneret cleaner Dr. Cunha and Dr. Rockwell to address his insurance and anticoagulation in the office. Coumadin was discontinued upon discharge, patient informed and he agrees. 1 month supply of free Eliquis is a provided at bedside by by the hospital prior to discharge. Patient understands this plan and he is able to follow-up with his spinneret cleaner within a week. Also patient evaluated by pulmonary service for bilateral lung nodules, there was suspicion of increased size. Patient made aware, risk including but not limited to cancer explained for him. And he agrees with the pulmonology plan for follow-up outpatient for possible PET scan and he agrees with the appointment made for him with Dr. Fry on 12/30 stating he will follow-up. Patient denies any other complaint. Patient eager to go home today. Patient was cleared for discharge by both cardiology and pulmonary services Problems and management plan were discussed with the patient and he verbalized understanding and acceptance Patient was found stable and can be discharged home in guarded prognosis however he needs follow-up as an outpatient. Patient was instructed to follow up with PCP within one week and patient agrees Patient instructed to follow-up with spinneret cleaner and ultrasound technologist as above and he agrees. Please refer to discharge instructions Physical exam Gen: patient is a AAOx3, no distress CVS: S1-S2, RRR, no murmur Lungs: B/L CTA, no wheezing Abdomen: soft, no distention, no tenderness, positive bowel sounds Extremity: no leg edema or induration Time spent more than 35 minutes Patient Condition at Discharge: Serious Plan - Discharge Summary New Discharge Prescriptions: New Apixaban [Eliquis] 5 mg PO BID #30 tab Spironolactone [Aldactone] 25 mg PO DAILY #30 tab Dapagliflozin Propanediol [Farxiga] 10 mg PO DAILY #30 tab Losartan [Cozaar] 100 mg PO DAILY #60 tab Furosemide [Lasix] 40 mg PO BID@0900,1600 #60 tab Metoprolol Tartrate [Lopressor] 75 mg PO TID #90 tab Continue Atorvastatin [Lipitor] 80 mg PO HS #30 tab Tamsulosin [Flomax] 0.4 mg PO HS Ticagrelor [Brilinta] 90 mg PO BID #60 tab Discontinued Losartan/Hydrochlorothiazide [Losartan-Hctz 100-25 mg Tab] 1 tab PO DAILY Aspirin 81 mg PO DAILY #30 tab Furosemide [Lasix] 40 mg PO DAILY #30 tab Metoprolol Tartrate [Lopressor] 75 mg PO BID Warfarin Sodium 4 mg PO DAILY Discharge Medication List Atorvastatin [Lipitor] 80 mg PO HS #30 tab 10/10/23 [Rx] Tamsulosin [Flomax] 0.4 mg PO HS 12/09/23 [History] Apixaban [Eliquis] 5 mg PO BID #30 tab 12/12/23 [Rx] Dapagliflozin Propanediol [Farxiga] 10 mg PO DAILY #30 tab 12/12/23 [Rx] Furosemide [Lasix] 40 mg PO BID@0900,1600 #60 tab 12/12/23 [Rx] Losartan [Cozaar] 100 mg PO DAILY #60 tab 12/12/23 [Rx] Metoprolol Tartrate [Lopressor] 75 mg PO TID #90 tab 12/12/23 [Rx] Spironolactone [Aldactone] 25 mg PO DAILY #30 tab 12/12/23 [Rx] Ticagrelor [Brilinta] 90 mg PO BID #60 tab 12/12/23 [Rx] Follow up Appointment(s)/Referral(s): Simón Donovan MD [STAFF PHYSICIAN] - 12/31/23 8:45 am Tony Segundo MD [STAFF PHYSICIAN] - 1 Week Devonte Baum DO [Primary Care Provider] - 1-2 days Activity/Diet/Wound Care/Special Instructions: heart healthy diet activity is restricted till you see your doctor we recommend you follow-up with your ultrasound technologist Dr. Fry in his office within 2 to 3 weeks for your progressive pulmonary nodules, PET scan is recommended for further evaluation Discharge Disposition: HOME SELF-CARE
== END 2023-12-12 16:20 | disposition home or self-care (01) | DRG 291 ==
LOC: EC 08:25 → 3SCARD 12:34
PROVIDERS: ADMIT Hospitalist; ATTEND Hospitalist
DX: I11.0 Hypertensive heart disease with heart failure (principal); I50.33 Acute on chronic diastolic (congestive) heart failure; I48.19 Other persistent atrial fibrillation; Z68.41 Body mass index [BMI] 40.0-44.9, adult; E66.01 Morbid (severe) obesity due to excess calories; I25.10 Atherosclerotic heart disease of native coronary artery without angina pectoris; E78.5 Hyperlipidemia, unspecified; R91.8 Other nonspecific abnormal finding of lung field; R79.89 Other specified abnormal findings of blood chemistry; N40.0 Benign prostatic hyperplasia without lower urinary tract symptoms; G47.33 Obstructive sleep apnea (adult) (pediatric); Z95.5 Presence of coronary angioplasty implant and graft; Z79.82 Long term (current) use of aspirin; Z79.01 Long term (current) use of anticoagulants; Z79.02 Long term (current) use of antithrombotics/antiplatelets; Z87.891 Personal history of nicotine dependence; Z79.899 Other long term (current) drug therapy
CPT/HCPCS: 36415; 71046; 80048; 80053; 83735; 83880; 84132; 84484; 85025; 85379; 85610; 85730; 93005; 96361; 96365; 96366; 96368; 96375; 99291

== ENCOUNTER 2023-12-29 11:36 | Inpatient (IN) | payer MEDICARE ==
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
[2023-12-29 12:39] LABS: Basophils # (A) 0.1 k/uL (0-0.2); Basophils % (A) 1 %; Eosinophils # (A) 0.1 k/uL (0-0.7); Eosinophils % (A) 1 %; HCT 44.3 % (39.0-53.0); HGB 14.5 gm/dL (13.0-17.5); Lymphocytes # (A) 0.9 k/uL (1.0-4.8); Lymphocytes % (A) 10 %; MCH 30.5 pg (25.0-35.0); MCHC 32.6 g/dL (31.0-37.0); MCV 93.4 fL (80.0-100.0); Mean Platelet Volume 7.7; Monocytes # (A) 0.5 k/uL (0-1.0); Monocytes % (A) 6 %; Neutrophils # (A) 6.9 k/uL (1.3-7.7); Neutrophils % (A) 81 %; Platelet Count 242 k/uL (150-450); RBC 4.74 m/uL (4.30-5.90); WBC 8.5 k/uL (3.8-10.6)
[2023-12-29 12:45] LABS: INR 1.1 (<1.2); Partial Thromboplastin Time 25.4 sec (22.0-30.0)
[2023-12-29 12:46] LABS: ALT 79 U/L (4-49); AST 54 U/L (17-59); African American GFR (CKD) 25 (>60 ml/min/1.73 sqM); Albumin 4.5 g/dL (3.5-5.0); Alkaline Phosphatase 73 U/L (38-126); Anion Gap 11 mmol/L; Blood Urea Nitrogen 96 mg/dL (9-20); Carbon Dioxide 30 mmol/L (22-30); Chloride 96 mmol/L (98-107); Glucose 138 mg/dL (74-99); Magnesium 2.1 mg/dL (1.6-2.3); Non-African American GFR(CKD) 22 (>60 ml/min/1.73 sqM); Potassium 4.1 mmol/L (3.5-5.1); Sodium 137 mmol/L (137-145); Total Bilirubin 0.8 mg/dL (0.2-1.3); Total Protein 8.1 g/dL (6.3-8.2)
--- NOTE | 2023-12-29 12:56 | XR ---
EXAMINATION TYPE: XR chest 2V DATE OF EXAM: 12/29/2023 12:33 PM CLINICAL INDICATION: Male, 73 years old with history of Weakness; COMPARISON: Chest radiographs from 12/09/2023 TECHNIQUE: XR chest 2V Frontal view of the chest. FINDINGS: Lungs/Pleura: Scattered pulmonary nodules as seen on prior. There is no evidence of pleural effusion, focal consolidation, or pneumothorax. Pulmonary vascularity: Unremarkable. Heart/mediastinum: Cardiomediastinal silhouette is unremarkable. Musculoskeletal: No acute osseous pathology. IMPRESSION: Similar scattered pulmonary nodules. [facility], , 12/29/2023 12:53 PM
[2023-12-29 13:02] LABS: T4, Free (Free Thyroxine) 1.21 ng/dL (0.78-2.19)
[2023-12-29] MEDS: SODIUM CHLORIDE 0.9% 1,000 ML IV STA (14:27)
[2023-12-29] MEDS ORDERED: NALOXONE 0.4 MG/ML 1 ML VIAL IV PRN (15:20)
[2023-12-29] MEDS: SODIUM CHLORIDE 0.9% 500 ML 500 ML IV STA (15:33)
[2023-12-29] MEDS: SODIUM CHLORIDE 0.9% 1,000 ML IV SCH (15:41)
[2023-12-29 18:22] LABS: Appearance,Urine Clear (Clear); Bilirubin,Urine Negative (Negative); Blood,Urine Negative (Negative); Color,Urine Colorless; Glucose,Urine (UA) Negative (Negative); Hyaline Casts,Urine 7 /lpf (0-2); Ketones,Urine Negative (Negative); Leukocyte Esterase,Urine Small (Negative); Mucus,Urine Rare /hpf; Nitrite,Urine Negative (Negative); Protein,Urine Negative (Negative); RBC,Urine 1 /hpf (0-5); Squamous Epithelial Cell,Urine <1 /hpf (0-4); Urobilinogen,Urine <2.0 mg/dL (<2.0); WBC,Urine 6 /hpf (0-5)
[2023-12-29] MEDS: TICAGRELOR 90 MG TAB PO SCH (20:10)
[2023-12-29] MEDS: TAMSULOSIN 0.4 MG CAP.ER.24H PO SCH (20:10)
[2023-12-29] MEDS: ATORVASTATIN 80 MG TAB PO SCH (20:10)
[2023-12-29] MEDS: APIXABAN 5 MG TAB PO SCH (20:10)
--- NOTE | 2023-12-29 23:28 | HP ---
HISTORY AND PHYSICAL CHIEF COMPLAINT: Lightheadedness and dizziness. HISTORY OF PRESENT ILLNESS: This is a 73-year-old gentleman with a past medical history of multiple medical problems including atrial fibrillation, hypertension, on multiple medications. His medications are being adjusted. Currently, the patient is complaining of lightheadedness and dizziness. The patient was found to have acute on chronic renal failure. The patient is unable to ambulate more than 10 feet. There is no history of any fever, rigors, or chills at this time. The creatinine has worsened up to 2.75. The patient had relative hypotension also. PAST MEDICAL HISTORY: Reviewed include atrial fibrillation, hypertension, rest of the history is also noted. HOME MEDICATIONS: Reviewed include Brilinta, dose and rest of medications noted. ALLERGIES: None. FAMILY HISTORY: No history of heart disease or strokes in the family. SOCIAL HISTORY: Previous history of smoking. REVIEW OF SYSTEMS: Fourteen-point review is negative except as mentioned earlier. PHYSICAL EXAMINATION: VITAL SIGNS: Pulse 68, blood pressure 74/48, respirations 18. HEENT: Conjunctivae normal. NECK: No JVD. CARDIOVASCULAR: S1, S2. RESPIRATIONS: Breath sounds diminished at the bases. No rhonchi. No crackles. ABDOMEN: Soft, nontender. No mass palpable. LEGS: No edema. NERVOUS SYSTEM: Nonfocal. SKIN: No ulcer, rash, bleeding. JOINTS: No active deforming arthropathy. LABORATORY DATA: Creatinine 2.75. Other labs are noted. Chest x-ray reviewed personally showed scattered pulmonary nodules. Recommend outpatient followup. Otherwise, EKG noted. ASSESSMENT: 1. Acute renal failure with acute tubular necrosis. 2. Relative hypotension, possibly medication induced. 3. Atrial fibrillation. 4. Hypertension history. 5. History of sleep apnea. 6. History of coronary artery disease stent. 7. Remote history of nicotine dependence. RECOMMENDATIONS: This is a 73-year-old gentleman who presented with multiple complex medical issues, we will monitor the patient closely. Recommend cautious IV fluids. Cardiology consultation. Adjust medications. Hold off the blood pressure medications. Guarded prognosis because of multiple complex medical issues. Further recommendations to follow. See orders for further details. MMODL / IJN: [id number] /
[2023-12-30 07:37] LABS: Basophils % (A) 1 %; Eosinophils # (A) 0.2 k/uL (0-0.7); Eosinophils % (A) 2 %; HCT 41.3 % (39.0-53.0); HGB 13.6 gm/dL (13.0-17.5); Lymphocytes % (A) 14 %; MCH 30.9 pg (25.0-35.0); MCHC 32.9 g/dL (31.0-37.0); MCV 93.9 fL (80.0-100.0); Mean Platelet Volume 7.4; Monocytes # (A) 0.4 k/uL (0-1.0); Monocytes % (A) 6 %; Neutrophils # (A) 5.3 k/uL (1.3-7.7); Neutrophils % (A) 75 %; Platelet Count 166 k/uL (150-450); RDW 13.9 % (11.5-15.5); WBC 7.1 k/uL (3.8-10.6)
[2023-12-30 08:04] LABS: African American GFR (CKD) 44 (>60 ml/min/1.73 sqM); Anion Gap 11 mmol/L; Blood Urea Nitrogen 78 mg/dL (9-20); Calcium 9.1 mg/dL (8.4-10.2); Carbon Dioxide 25 mmol/L (22-30); Chloride 100 mmol/L (98-107); Glucose 142 mg/dL (74-99); Non-African American GFR(CKD) 38 (>60 ml/min/1.73 sqM); Potassium 3.5 mmol/L (3.5-5.1); Sodium 136 mmol/L (137-145)
[2023-12-30] MEDS: METOPROLOL TARTRATE 25 MG TAB PO SCH (09:16)
--- NOTE | 2023-12-30 10:53 | CDI ---
Documentation Clarification Form Date: 12/30/2023 From: Tonya Bustillo RN CCDS Phone: [phone] Admit Date: 12/29/2023 03:20:00 PM Patient Name: Krystyna Wade Visit Number: [id number] Discharge Date: ATTENTION: The Clinical Documentation Specialists (CDI) and [facility] Coding Staff appreciate your assistance in clarifying documentation. Please respond to the clarification below the line at the bottom and electronically sign. The CDI & [facility] Coding staff will review the response and follow-up if needed. Please note: Queries are made part of the Legal Health Record. If you have any questions, please contact the author of this message via ITS. Doctor/Provider: Alexia Shannon MD: Patient has a documented BMI of 41.3 on 12/28. Additional clarification is requested. History/Risk Factors: 73-year-old male with a history of Afib, HTN and BPH who presents with lightheadedness and dizziness Clinical Indicators: 12/28 Patients weight is 134.2kg Patients height is 5ft 11in Calculated BMI is 41.3 Treatments: Healthy Heart Diet Please clarify if patients BMI indicates an additional diagnosis: [ ] Morbid (Extreme) (severe) obesity [ ] No additional diagnosis/not clinically significant [ ] Other, please specify ____ [ ] Unable to determine Reference: NIH Classification for BMI Overweight BMI 2529.9 Obesity (Class 1) BMI 3034.9 Obesity (Class 2) BMI 3539.9 Morbid obesity (Class 3/Extreme/severe) BMI =40 No additional diagnosis/not clinically significant MTDD
--- NOTE | 2023-12-30 11:02 | P.CRDCN ---
History of Present Illness History of present illness: HISTORY OF PRESENT ILLNESS: This is a 73-year-old male with a past medical history significant for coronary artery disease with previous stenting, hypertension, hyperlipidemia, paroxysmal atrial fibrillation, and congestive heart failure. Patient follows in the office with Dr. Segundo. We have been asked to see the patient in consultation for history of CAD. Patient examined at the bedside. Patient states on he began to feel dizzy. He reports he was feeling lightheaded and short of breath with exertion. He presented to the hospital for further evaluation. The patient was found to be hypotensive with a systolic blood pressure in the 70s. Patient was also found to have acute kidney injury with a creatinine of 2.75. It is noted that the patient was recently hospitalized last month due to A-fib with RVR and CHF. According to his discharge summary, it appears that his hydrochlorothiazide was discontinued and he was also started on Aldactone and Farxiga. Additionally his Lasix was increased from 40 mg daily to 40 mg twice a day and his metoprolol was increased from 75 mg twice a day to 75 mg 3 times a day. DIAGNOSTICS: - EKG reveals sinus mechanism with no signs of acute ischemia - Chest xray similar scattered pulmonary nodules - Laboratory data: WBC 7.1. Hemoglobin 13.6. Platelet count 166. Sodium 136. Potassium 3.5. BUN 78. Creatinine 1.73. Troponin negative x 1. TSH 1.600. - Current home cardiac medications include Lipitor 80 mg at night, Eliquis 5 mg twice a day, Lasix 40 mg twice a day, losartan 100 mg daily, metoprolol tartrate 75 mg 3 times daily, Aldactone 25 mg daily, Brilinta 90 mg twice a day - Most recent echocardiogram obtained in September 2023 revealed ejection fraction 55 to 60% with mild MR and mild TR - Cardiac catheterization history: 11/18/2023 revealing intermediate lesion involving the ostial RCA. Mild to moderate disease involving the first obtuse marginal branch. Severe disease involving the mid LAD. Patient underwent stenting of the mid LAD REVIEW OF SYSTEMS: At the time of my exam: CONSTITUTIONAL: Denies fever or chills. HEENT: Denies blurred vision, vision changes, or eye pain. Denies hemoptysis CARDIOVASCULAR: Denies chest pain. Denies orthopnea. Denies PND. Denies palpitations RESPIRATORY: Denies shortness of breath. GASTROINTESTINAL: Denies abdominal pain. Denies nausea or vomiting. HEMATOLOGIC: Denies bleeding disorders. GENITOURINARY: Denies any blood in urine. SKIN: Denies pruitis. Denies rash. PHYSICAL EXAM: VITAL SIGNS: Reviewed. GENERAL: Well-developed in no acute distress. HEENT: Head is normocephalic. Pupils are equal, round. Sclerae anicteric. Mucous membranes of the mouth are moist. Neck supple. No JVD or thyromegaly LUNGS: Respirations even and unlabored. Lungs essentially clear to auscultation bilaterally. HEART: Regular rate and rhythm. S1 and S2 heard. ABDOMEN: Soft. Nondistended. Nontender. EXTREMITIES: Normal range of motion. No clubbing or cyanosis. Peripheral pu lses intact. Trace bilateral lower extremity edema NEUROLOGIC: Awake and alert. Oriented x 3. ASSESSMENT: Dizziness and lightheadedness secondary to hypotension Hypotension; likely due to recent medication changes Acute kidney injury secondary to hypoperfusion from hypotension Paroxysmal atrial fibrillation, currently maintaining sinus mechanism Coronary artery disease with recent stenting of the mid LAD, 11/18/2023 Chronic congestive heart failure with preserved EF, EF 55 to 60% Hypertension Hyperlipidemia PLAN: No need to obtain echocardiogram as this was performed in September 2023 Hold Lasix, losartan, and Aldactone Continue Brilinta, Eliquis, and Lipitor Resume metoprolol at a decreased dose of 25 mg twice a day Continue to monitor blood pressure Continue telemetry monitoring Repeat kidney function in a.m. Further recommendations pending patient course Nurse practitioner note has been reviewed by physician. Signing provider agrees with the documented findings, assessment, and plan of care documented by PERL PROGRAMMER as a scribe. Past Medical History Past Medical History: Atrial Fibrillation, Hypertension, Prostate Disorder, Sleep Apnea/CPAP/BIPAP Additional Past Medical History / Comment(s): BPH, ELECTROCUTED IN 1985- BODY ACHES, no device for sleep apnea. History of Any Multi-Drug Resistant Organisms: None Reported Past Surgical History: Heart Catheterization With Stent Additional Past Surgical History / Comment(s): Cataract surgery abdominal surgery due to electrocution. Past Anesthesia/Blood Transfusion Reactions: No Reported Reaction Date of Last Stent Placement:: 11/18/23 Past Psychological History: No Psychological Hx Reported Smoking Status: Former smoker Past Alcohol Use History: Occasional Additional Past Alcohol Use History / Comment(s): SMOKED TEEN, QUIT IN 1967. Past Drug Use History: None Reported - Past Family History Mother Family Medical History: No Reported History Father Family Medical History: Congestive Heart Failure (CHF) Medications and Allergies Home Medications Medication Instructions Recorded Confirmed Type Atorvastatin [Lipitor] 80 mg PO HS #30 tab 10/10/23 12/29/23 Rx Tamsulosin [Flomax] 0.4 mg PO HS 12/09/23 12/29/23 History Apixaban [Eliquis] 5 mg PO BID #30 tab 12/12/23 12/29/23 Rx Furosemide [Lasix] 40 mg PO BID@0900,1600 #60 tab 12/12/23 12/29/23 Rx Losartan [Cozaar] 100 mg PO DAILY #60 tab 12/12/23 12/29/23 Rx Metoprolol Tartrate [Lopressor] 75 mg PO TID #90 tab 12/12/23 12/29/23 Rx Spironolactone [Aldactone] 25 mg PO DAILY #30 tab 12/12/23 12/29/23 Rx Ticagrelor [Brilinta] 90 mg PO BID #60 tab 12/12/23 12/29/23 Rx Allergies Allergy/AdvReac Type Severity Reaction Status Date / Time No Known Allergies Allergy Verified 12/29/23 13:24 Physical Exam Vitals: Vital Signs Temp Pulse Pulse Resp BP BP BP 12/30/23 04:00 97.7 F 72 18 86/52 12/30/23 02:00 73 18 12/30/23 00:00 97.7 F 73 18 12/29/23 20:00 97.7 F 74 18 95/55 12/29/23 18:00 97.6 F 64 16 92/47 12/29/23 17:49 98.2 F 67 18 99/52 12/29/23 16:45 62 18 113/61 12/29/23 14:45 59 L 18 100/54 12/29/23 12:50 68 18 75/46 12/29/23 12:49 92 18 64/51 12/29/23 12:48 61 18 12/29/23 12:08 62 18 99/64 12/29/23 11:46 97.3 F L 65 20 69/45 BP Pulse Ox 12/30/23 04:00 97 12/30/23 02:00 10/15/24 00:00 93/54 97 12/29/23 20:00 97 12/29/23 18:00 96 12/29/23 17:49 97 12/29/23 16:45 99 12/29/23 14:45 96 12/29/23 12:50 95 12/29/23 12:49 94 L 12/29/23 12:48 85/45 96 12/29/23 12:08 96 12/29/23 11:46 93 L Intake and Output 12/29/23 12/30/23 12/30/23 22:59 06:59 14:59 Intake Total 240 180 Balance 240 180 Intake: Oral 240 180 Other: # Voids 1 2 1 Weight 133.356 kg 134.2 kg Results 12/30/23 07:12 12/30/23 07:12 Cardiac Enzymes 12/29/23 12/29/23 Range/Units 12:22 12:22 AST 54 (17-59) U/L Troponin I 0.030 (0.000-0.034) ng/mL Coagulation 12/29/23 Range/Units 12:22 PT 12.0 (10.0-12.5) sec APTT 25.4 (22.0-30.0) sec CBC 12/29/23 12/30/23 Range/Units 12:22 07:12 WBC 8.5 7.1 (3.8-10.6) k/uL RBC 4.74 4.40 (4.30-5.90) m/uL Hgb 14.5 13.6 (13.0-17.5) gm/dL Hct 44.3 41.3 (39.0-53.0) % Plt Count 242 166 (150-450) k/uL Comprehensive Metabolic Panel 12/29/23 12/30/23 Range/Units 12:22 07:12 Sodium 137 136 L (137-145) mmol/L Potassium 4.1 3.5 (3.5-5.1) mmol/L Chloride 96 L 100 (98-107) mmol/L Carbon Dioxide 30 25 (22-30) mmol/L BUN 96 H 78 H (9-20) mg/dL Creatinine 2.75 H 1.73 H (0.66-1.25) mg/dL Glucose 138 H 142 H (74-99) mg/dL Calcium 10.0 9.1 (8.4-10.2) mg/dL AST 54 (17-59) U/L ALT 79 H (4-49) U/L Alkaline Phosphatase 73 (38-126) U/L Total Protein 8.1 (6.3-8.2) g/dL Albumin 4.5 (3.5-5.0) g/dL Current Medications Generic Name Dose Route Start Last Admin Trade Name Freq PRN Reason Stop Dose Admin Apixaban 5 mg 12/29/23 21:00 12/30/23 09:16 Apixaban 5 Mg Tab PO 5 mg BID VALDO Administration Protocol Atorvastatin Calcium 80 mg 12/29/23 21:00 12/29/23 20:10 Atorvastatin 80 Mg Tab PO 80 mg HS VALDO Administration Sodium Chloride 1,000 mls @ 75 mls/hr 12/29/23 15:30 12/30/23 04:00 Saline 0.9% IV 75 mls/hr .[id number] VALDO Administration Metoprolol Tartrate 25 mg 12/30/23 09:00 12/30/23 09:16 Metoprolol Tartrate 25 Mg Tab PO 25 mg BID VALDO Administration Naloxone HCl 0.2 mg 12/29/23 15:20 Naloxone 0.4 Mg/Ml 1 Ml Vial IV Q2M PRN Opioid Reversal Tamsulosin HCl 0.4 mg 12/29/23 21:00 12/29/23 20:10 Tamsulosin 0.4 Mg Cap.Er.24h PO 0.4 mg HS VALDO Administration Ticagrelor 90 mg 12/29/23 21:00 12/30/23 09:16 Ticagrelor 90 Mg Tab PO 90 mg BID VALDO Administration Intake and Output 12/29/23 12/30/23 12/30/23 22:59 06:59 14:59 Intake Total 240 180 Balance 240 180 Intake: Oral 240 180 Other: # Voids 1 2 1 Weight 133.356 kg 134.2 kg 12/30/23 07:12 12/30/23 07:12
--- NOTE | 2023-12-30 13:15 | P.NPCON ---
History of Present Illness - Reason for Consult acute renal failure - History of Present Illness patient is a 73-year-old male with history of hypertension, chronic A. fib, BPH was admitted to the hospital with complaints of increased weakness and lightheadedness after passing urine yesterday. no complaints of palpitations. Patient did report chest pain. Patient is maintained on Cozaar for hypertension. No previous history of kidney diseases. Blood pressure was low with systolic blood pressure in the 60s on initial admission. Status post IV fluids. Serum creatinine was 2.7 on admission and decreased to 1.7 today. Patient states she is feeling better.. No history of NSAIDs. Cozaar on hold. Maintained on IV fluids. Past Medical History Past Medical History: Atrial Fibrillation, Hypertension, Prostate Disorder, Sleep Apnea/CPAP/BIPAP Additional Past Medical History / Comment(s): BPH, ELECTROCUTED IN 1985- BODY ACHES, no device for sleep apnea. History of Any Multi-Drug Resistant Organisms: None Reported Past Surgical History: Heart Catheterization With Stent Additional Past Surgical History / Comment(s): Cataract surgery abdominal surgery due to electrocution. Past Anesthesia/Blood Transfusion Reactions: No Reported Reaction Date of Last Stent Placement:: 11/18/23 Past Psychological History: No Psychological Hx Reported Smoking Status: Former smoker Past Alcohol Use History: Occasional Additional Past Alcohol Use History / Comment(s): SMOKED TEEN, QUIT IN 1967. Past Drug Use History: None Reported - Past Family History Mother Family Medical History: No Reported History Father Family Medical History: Congestive Heart Failure (CHF) Medications and Allergies Home Medications Medication Instructions Recorded Confirmed Type RX: Atorvastatin [Lipitor] 80 mg PO HS #30 tab 10/10/23 12/29/23 Rx RX: Tamsulosin [Flomax] 0.4 mg PO HS 12/09/23 12/29/23 History Apixaban [Eliquis] 5 mg PO BID #30 tab 12/12/23 12/29/23 Rx RX: Furosemide [Lasix] 40 mg PO BID@0900,1600 #60 tab 12/12/23 12/29/23 Rx RX: Losartan [Cozaar] 100 mg PO DAILY #60 tab 12/12/23 12/29/23 Rx RX: Metoprolol Tartrate [Lopressor] 75 mg PO TID #90 tab 12/12/23 12/29/23 Rx RX: Spironolactone [Aldactone] 25 mg PO DAILY #30 tab 12/12/23 12/29/23 Rx RX: Ticagrelor [Brilinta] 90 mg PO BID #60 tab 12/12/23 12/29/23 Rx Allergies Allergy/AdvReac Type Severity Reaction Status Date / Time No Known Allergies Allergy Verified 12/29/23 13:24 Physical Exam Vitals: Vital Signs Temp Pulse Pulse Resp BP BP BP 12/30/23 04:00 97.7 F 72 18 86/52 12/30/23 02:00 73 18 12/30/23 00:00 97.7 F 73 18 93/54 12/29/23 20:00 97.7 F 74 18 95/55 12/29/23 18:00 97.6 F 64 16 92/47 12/29/23 17:49 98.2 F 67 18 99/52 12/29/23 16:45 62 18 113/61 12/29/23 14:45 59 L 18 100/54 Pulse Ox 12/30/23 04:00 97 12/30/23 02:00 12/30/23 00:00 97 12/29/23 20:00 97 12/29/23 18:00 96 12/29/23 17:49 97 12/29/23 16:45 99 12/29/23 14:45 96 Intake and Output 12/29/23 12/30/23 12/30/23 22:59 06:59 14:59 Intake Total 240 180 Balance 240 180 Intake: Oral 240 180 Other: # Voids 1 2 1 Weight 133.356 kg 134.2 kg patient is awake, comfortable, no acute distress. 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 Acute kidney injury, ATN, nonoliguric secondary to hypotension. Currently improved. UA is benign. Check ultrasound of the kidneys. 2. Hypotension secondary to hypovolemia and possibly vasovagal episode 3. History of hypertension but blood pressure currently low. 4. History of A. fib Plan: continue IV fluids Continue Flomax Repeat labs in a.m. Check ultrasound of the kidneys Thank you for the consultation. We will continue to follow the patient with you during his hospitalization
--- NOTE | 2023-12-30 15:03 | XR ---
EXAMINATION TYPE: XR chest 1V portable DATE OF EXAM: 12/30/2023 2:46 PM CLINICAL INDICATION: Male, 73 years old with history of sob; PHH COMPARISON: Chest radiographs from 12/29/2023 TECHNIQUE: XR chest 1V portable Frontal view of the chest. FINDINGS: Lungs/Pleura: There is no evidence of pleural effusion, focal consolidation, or pneumothorax. Pulmonary vascularity: Unremarkable. Heart/mediastinum: Cardiomediastinal silhouette is unremarkable. Musculoskeletal: No acute osseous pathology. IMPRESSION: No acute cardiopulmonary disease/process. [facility], , 12/30/2023 3:01 PM
--- NOTE | 2023-12-30 15:06 | US ---
EXAMINATION TYPE: US kidneys/renal and bladder DATE OF EXAM: 12/30/2023 COMPARISON: CT: 10/07/23 CLINICAL INDICATION: Male, 73 years old with history of katia; KATIA TECHNIQUE: Grayscale and color Doppler imaging of the bilateral kidneys and urinary bladder: FINDINGS: EXAM MEASUREMENTS: Right Kidney: 11.4 x 5.8 x 5.6 cm Left Kidney: 11.4 x 4.9 x 5.2 cm Right Kidney: No hydronephrosis or masses seen , cortical medullary differentiation is maintained. Left Kidney: No hydronephrosis or masses seen , cortical medullary differentiation is maintained. Bladder: wnl Bilateral Jets seen: No There is no evidence for hydronephrosis at this point in time. No nephrolithiasis is seen. No juan s are identified. The urinary bladder is anechoic. IMPRESSION: No evidence for obstructive uropathy. [facility], , 12/30/2023 3:04 PM
[2023-12-30] MEDS: POTASSIUM CHLORIDE ER 20 MEQ TAB.ER PO STA (20:27)
--- NOTE | 2023-12-30 21:13 | PN ---
PROGRESS NOTE DATE OF SERVICE: 12/30/2023 SUBJECTIVE: This is a 73-year-old gentleman who was admitted with acute renal failure, acute tubular necrosis, also had relative hypotension. No chest pain. No palpitation. OBJECTIVE: VITAL SIGNS: Pulse is 78, blood pressure 119/70, respirations 16. CHEST: Clear to auscultation. CARDIOVASCULAR: S1, S2. ABDOMEN: Soft. NERVOUS SYSTEM: Nonfocal. LABORATORY DATA: Sodium 136, creatinine is 1.73. ASSESSMENT: 1. Acute renal failure with acute tubular necrosis, prerenal factors. 2. Relative hypotension, possibly medication induced. 3. Atrial fibrillation. 4. Hypertension history. 5. History of sleep apnea. 6. Multiple complex medical issues. RECOMMENDATIONS: Recommend to continue current management and continue symptomatic treatment. Monitor blood pressure closely. Continue with IV fluids. Cardiology, Nephrology input appreciated. Monitor creatinine closely. Possible discharge in the next 24 hours. MMODL / IJN: [id number] /
[2023-12-31 06:18] LABS: Basophils % (A) 1 %; Eosinophils # (A) 0.2 k/uL (0-0.7); Eosinophils % (A) 3 %; HCT 42.8 % (39.0-53.0); HGB 14.3 gm/dL (13.0-17.5); Lymphocytes % (A) 15 %; MCH 31.6 pg (25.0-35.0); MCHC 33.4 g/dL (31.0-37.0); MCV 94.5 fL (80.0-100.0); Mean Platelet Volume 7.4; Monocytes # (A) 0.4 k/uL (0-1.0); Monocytes % (A) 6 %; Neutrophils # (A) 4.6 k/uL (1.3-7.7); Neutrophils % (A) 74 %; Platelet Count 182 k/uL (150-450); RBC 4.52 m/uL (4.30-5.90); RDW 13.9 % (11.5-15.5); WBC 6.3 k/uL (3.8-10.6)
[2023-12-31 06:29] LABS: ALT 67 U/L (4-49); AST 49 U/L (17-59); African American GFR (CKD) 61 (>60 ml/min/1.73 sqM); Albumin 3.8 g/dL (3.5-5.0); Alkaline Phosphatase 67 U/L (38-126); Anion Gap 11 mmol/L; Blood Urea Nitrogen 54 mg/dL (9-20); Calcium 9.4 mg/dL (8.4-10.2); Carbon Dioxide 25 mmol/L (22-30); Chloride 104 mmol/L (98-107); Glucose 117 mg/dL (74-99); Non-African American GFR(CKD) 53 (>60 ml/min/1.73 sqM); Potassium 4.2 mmol/L (3.5-5.1); Sodium 140 mmol/L (137-145); Total Bilirubin 0.8 mg/dL (0.2-1.3); Total Protein 7.1 g/dL (6.3-8.2)
[2023-12-31 09:03] VITALS: TEMP 97.5
[2023-12-31 11:31] VITALS: BP 148/83; PULSE 67; RESP 18
--- NOTE | 2023-12-31 11:45 | P.PN ---
Subjective HISTORY OF PRESENT ILLNESS: This is a 73-year-old male with a past medical history significant for coronary artery disease with previous stenting, hypertension, hyperlipidemia, paroxysmal atrial fibrillation, and congestive heart failure. Patient follows in the office with Dr. Segundo. We have been asked to see the patient in consultation for history of CAD. Patient examined at the bedside. Patient states on he began to feel dizzy. He reports he was feeling lightheaded and short of breath with exertion. He presented to the hospital for further evaluation. The patient was found to be hypotensive with a systolic blood pressure in the 70s. Patient was also found to have acute kidney injury with a creatinine of 2.75. It is noted that the patient was recently hospitalized last month due to A-fib with RVR and CHF. According to his discharge summary, it appears that his hydrochlorothiazide was discontinued and he was also started on Aldactone and Farxiga. Additionally his Lasix was increased from 40 mg daily to 40 mg twice a day and his metoprolol was increased from 75 mg twice a day to 75 mg 3 times a day. DIAGNOSTICS: - EKG reveals sinus mechanism with no signs of acute ischemia - Chest xray similar scattered pulmonary nodules - Laboratory data: WBC 7.1. Hemoglobin 13.6. Platelet count 166. Sodium 136. Potassium 3.5. BUN 78. Creatinine 1.73. Troponin negative x 1. TSH 1.600. - Current home cardiac medications include Lipitor 80 mg at night, Eliquis 5 mg twice a day, Lasix 40 mg twice a day, losartan 100 mg daily, metoprolol tartrate 75 mg 3 times daily, Aldactone 25 mg daily, Brilinta 90 mg twice a day - Most recent echocardiogram obtained in September 2023 revealed ejection fraction 55 to 60% with mild MR and mild TR - Cardiac catheterization history: 11/18/2023 revealing intermediate lesion involving the ostial RCA. Mild to moderate disease involving the first obtuse marginal branch. Severe disease involving the mid LAD. Patient underwent stenting of the mid LAD 12/31/2023 Patient examined this morning at the bedside. Patient currently denies chest pain or pressure. He denies shortness of breath. Telemetry reveals sinus mechanism. Vital signs are stable. Blood pressure this morning 128/67. BUN today 54. Creatinine 1.33. PHYSICAL EXAM: VITAL SIGNS: Reviewed. GENERAL: Well-developed in no acute distress. HEENT: Head is normocephalic. Pupils are equal, round. Sclerae anicteric. Mucous membranes of the mouth are moist. Neck supple. No JVD or thyromegaly LUNGS: Respirations even and unlabored. Lungs essentially clear to auscultation bilaterally. HEART: Regular rate and rhythm. S1 and S2 heard. ABDOMEN: Soft. Nondistended. Nontender. EXTREMITIES: Normal range of motion. No clubbing or cyanosis. Peripheral pulses intact. Trace bilateral lower extremity edema NEUROLOGIC: Awake and alert. Oriented x 3. ASSESSMENT: Dizziness and lightheadedness secondary to hypotension Hypotension; likely due to recent medication changes Acute kidney injury secondary to hypoperfusion from hypotension Paroxysmal atrial fibrillation, currently maintaining sinus mechanism Coronary artery disease with recent stenting of the mid LAD, 11/18/2023 Chronic congestive heart failure with preserved EF, EF 55 to 60% Hypertension Hyperlipidemia PLAN: No need to obtain echocardiogram as this was performed in September 2023 Hold Lasix, losartan, and Aldactone Continue Brilinta, Eliquis, and Lipitor Continue current dose of metoprolol Continue to monitor blood pressure Continue telemetry monitoring Patient may be discharged home today from a cardiac standpoint Recommend BMP in 3 days Patient to follow-up postdischarge in the office with Dr. Segundo in 1 week and reinitiation of Farxiga, Lasix, losartan, and Aldactone will be discussed at that time Nurse practitioner note has been reviewed by physician. Signing provider agrees with the documented findings, assessment, and plan of care documented by ENVELOPE ADDRESSER as a scribe. Objective - Vital Signs Vital signs: Vital Signs Temp 97.5 F L 12/31/23 08:00 Pulse 67 12/31/23 11:29 Resp 18 12/31/23 11:29 BP 148/83 12/31/23 11:29 Pulse Ox 97 12/31/23 11:29 FiO2 Intake & Output 12/30/23 12/31/23 12/31/23 18:59 06:59 18:59 Intake Total 540 540 240 Balance 540 540 240 Weight 134 kg Intake: Oral 540 540 240 Other: Voiding Method Toilet # Voids 2 1 - Labs CBC & Chem 7: 12/31/23 05:55 12/31/23 05:55 Labs: Abnormal Lab Results - Last 24 Hours (Table) 12/31/23 Range/Units 05:55 BUN 54 H (9-20) mg/dL Creatinine 1.33 H (0.66-1.25) mg/dL Glucose 117 H (74-99) mg/dL ALT 67 H (4-49) U/L
--- NOTE | 2023-12-31 13:14 | P.PN ---
Subjective patient is seen for follow-up for acute kidney injury. Renal function has improved significantly with IV fluids. Serum creatinine down to 1.3 mg/dL. Objective - Vital Signs Vital signs: Vital Signs Temp 97.5 F L 12/31/23 08:00 Pulse 67 12/31/23 11:29 Resp 18 12/31/23 11:29 BP 148/83 12/31/23 11:29 Pulse Ox 97 12/31/23 11:29 FiO2 Intake & Output 12/30/23 12/31/23 12/31/23 18:59 06:59 18:59 Intake Total 540 540 240 Balance 540 540 240 Weight 134 kg Intake: Oral 540 540 240 Other: Voiding Method Toilet # Voids 2 1 - Exam patient is awake, comfortable, no acute distress. 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 Acute kidney injury, ATN, nonoliguric secondary to hypotension. Currently improved. UA is benign. Ultrasound of the kidneys did not show any evidence of obstruction. 2. Hypotension secondary to hypovolemia and possibly vasovagal episode 3. History of hypertension but blood pressure currently low. 4. History of A. fib Plan: patient can be discharged from nephrology standpoint. repeat labs as outpatient
--- NOTE | 2023-12-31 14:08 | P.DS ---
Providers Date of admission: 12/29/23 15:20 Expected date of discharge: 12/31/23 Attending physician: Alexia Shannon Consults: 12/29/23 15:08 Consult Physician Routine Consulting Provider: Tony Segundo Consult Reason/Comments: cad Do you want consulting provider notified?: Yes Consult Physician Routine Consulting Provider: Nighat Smith Consult Reason/Comments: arf Do you want consulting provider notified?: Yes Primary care physician: Devonte Baum Hospital Course: Final diagnosis Acute renal failure with acute tubular necrosis, prerenal factors, improving Relative hypotension, likely medication induced History of atrial fibrillation Hypertension history History of sleep apnea Morbid obesity with a BMI of 41.2 History of BPH GI prophylaxis DVT prophylaxis Full code Discharge disposition Patient is being discharged in a stable condition with guarded prognosis to home. Patient will follow-up with Dr. Baum in the outpatient setting upon discharge. Patient is to continue with current medications and close outpatient follow-up with cardiology in 1 week as scheduled. Total time taken is greater than 35 minutes. Hospital course This is a 73-year-old male who was recently admitted with KATIA and hypotension with shortness of breath being closely monitored. Patient reports he has been experiencing increasing shortness of breath and weakness with dizziness over the last few days prior to hospital arrival. Patient noted to have KATIA and was maintained on gentle hydration with diuretics being held. Patient was hypotensive and blood pressure medications being adjusted with cardiology following recommending to continue holding losartan, Farxiga, Lasix, and Aldactone for now and will follow-up with repeat labs in the outpatient setting in the next 3 days and will discuss reinitiating medications at cardiology appointment. Patient has been cleared by consultations for discharge home and outpatient follow-up. Recommend nephrology follow-up outpatient as well. Please refer to other consultation notes for further HPI. Currently no reports of chest pain, shortness of breath, or palpitations. Patient is afebrile. No reports of nausea or vomiting and patient is tolerating diet. Patient will be discharged home today. Guarded prognosis given significant comorbidities. Physical exam: Gen: This is a 73-year-old male who is awake, alert and oriented x 3, well- developed, well-nourished, elderly appearing, morbidly obese HEENT: Head is atraumatic, normocephalic. Pupils equal, round. Sclerae is anicteric. NECK: Supple. No JVD. No lymphadenopathy. No thyromegaly. LUNGS: Diminished breath sounds bilaterally otherwise clear to auscultation. No wheezes or rhonchi. No intercostal retractions. HEART: S1, S2 are muffled ABDOMEN: Soft. Obese. Bowel sounds are present. No masses. No tenderness. EXTREMITIES: No pedal edema. No calf tenderness. NEUROLOGICAL: Patient is awake, alert and oriented x3. Cranial nerves 2 through 12 are grossly intact. Please refer to medication reconciliation sheet for a list of medications. The impression and plan of care has been dictated by Jimena Hurley, Nurse Practitioner as directed. Dr. Shiva MD I have performed a history and examination and MDM of this patient, discussed the same with the dictator, and agree with the dictator's assessment and plan as written ,documented as a scribe. Based on total visit time, I have performed more than 50% of the visit. Patient Condition at Discharge: Fair Plan - Discharge Summary Discharge Rx Participant: No New Discharge Prescriptions: New Metoprolol Tartrate [Lopressor] 25 mg PO BID #60 tab Continue Apixaban [Eliquis] 5 mg PO BID #30 tab Atorvastatin [Lipitor] 80 mg PO HS #30 tab Tamsulosin [Flomax] 0.4 mg PO HS Ticagrelor [Brilinta] 90 mg PO BID #60 tab Discontinued Spironolactone [Aldactone] 25 mg PO DAILY #30 tab Losartan [Cozaar] 100 mg PO DAILY #60 tab Furosemide [Lasix] 40 mg PO BID@0900,1600 #60 tab Metoprolol Tartrate [Lopressor] 75 mg PO TID #90 tab Discharge Medication List Atorvastatin [Lipitor] 80 mg PO HS #30 tab 10/10/23 [Rx] Tamsulosin [Flomax] 0.4 mg PO HS 12/09/23 [History] Apixaban [Eliquis] 5 mg PO BID #30 tab 12/12/23 [Rx] Ticagrelor [Brilinta] 90 mg PO BID #60 tab 12/12/23 [Rx] Metoprolol Tartrate [Lopressor] 25 mg PO BID #60 tab 12/31/23 [Rx] Follow up Appointment(s)/Referral(s): Tony Segundo MD [STAFF PHYSICIAN] - 1 Week (CALL AND MAKE KALEE!) Devonte Baum DO [Primary Care Provider] - 1-2 days (CALL AND MAKE KALEE!) Ambulatory/Diagnostic Orders: Basic Metabolic Panel [LAB.AMB] Time Frame: 3 Days, Location: None Selected Patient Instructions/Handouts: Acute Kidney Injury (DC), Syncope (DC) Activity/Diet/Wound Care/Special Instructions: Activity limited until follow-up Follow-up with primary care provider on discharge Follow-up with cardiology in 1 week Continue holding medications as discussed with cardiology Repeat labs to monitor kidney functions and electrolytes in the next 3 days Monitor blood pressure once daily at the same time each day and keep a diary of all readings preferably after sitting up for a few minutes in the chair when calm and relaxed Recommend fluid restrictions of no more than 45 ounces including all fluid intake each day Discharge Disposition: HOME SELF-CARE
--- NOTE | 2024-01-14 16:36 | CDI ---
Documentation Clarification Form Date: 01/14/2024 04:26:27 PM From: Sharifa Garber Phone: Admit Date: 12/29/2023 03:20:00 PM Patient Name: Krystyna Wade Visit Number: [id number] Discharge Date: 12/31/2023 02:24:00 PM ATTENTION: The Clinical Documentation Specialists (CDI) and [facility] Coding Staff appreciate your assistance in clarifying documentation. Please respond to the clarification below the line at the bottom and electronically sign. The CDI & [facility] Coding staff will review the response and follow-up if needed. Please note: Queries are made part of the Legal Health Record. If you have any questions, please contact the author of this message via ITS. Doctor/Provider: Nighat Smith Unspecified CKD is documented per H&P. Additional clarification regarding the stage of CKD is requested. History/Risk Factors: 73yo F, ATN, PAF, HTN, ZITA, CAD w stent, BPH, CDHF, obesity, HLD, hypovolemia, former smoker Clinical Indicators: BUN: 96 CR: 2.75 GFR: 22-25 Treatment: Currently improved.UA is benign. Ultrasoundof the kidneysdid not show any evidence of obstruction. Please clarify the stage of the CKD, if known: [ ] CKD Stage 3b [ ] CKD Stage 4 [x ] Other, please specify No CKD [ ] Unable to determine Reference: National Kid[employer] Stage 1 eGFR = 90 and kidney damage for =3 months Stage 2 eGFR 60-89 and kidney damage for =3 months Stage 3a eGFR 45-59 and kidney damage for =3 months Stage 3b eGFR 30-44 and kidney damage for =3 months Stage 4 eGFR 15-29 r and kidney damage for =3 months Stage 5 eGFR <15 and kidney damage for =3 months (Template Last revised: March 2023) MTDD
== END 2023-12-31 14:24 | disposition home or self-care (01) | DRG 312 ==
LOC: EC 11:36 → 3SCARD 15:20
PROVIDERS: ADMIT Hospitalist; ATTEND Hospitalist
DX: I95.2 Hypotension due to drugs (principal); N17.0 Acute kidney failure with tubular necrosis; I50.32 Chronic diastolic (congestive) heart failure; Z68.41 Body mass index [BMI] 40.0-44.9, adult; I11.0 Hypertensive heart disease with heart failure; E66.01 Morbid (severe) obesity due to excess calories; I48.0 Paroxysmal atrial fibrillation; T50.905A Adverse effect of unspecified drugs, medicaments and biological substances, initial encounter; E86.1 Hypovolemia; E78.5 Hyperlipidemia, unspecified; G47.30 Sleep apnea, unspecified; I25.10 Atherosclerotic heart disease of native coronary artery without angina pectoris; N40.0 Benign prostatic hyperplasia without lower urinary tract symptoms; Z79.01 Long term (current) use of anticoagulants; Z87.891 Personal history of nicotine dependence; Z79.899 Other long term (current) drug therapy; Z79.02 Long term (current) use of antithrombotics/antiplatelets; Z95.5 Presence of coronary angioplasty implant and graft
CPT/HCPCS: 36415; 71045; 71046; 76770; 80048; 80053; 81001; 83605; 83735; 84439; 84443; 84481; 84484; 85025; 85379; 85610; 85730; 93005; 96360; 96361; 99285

== ENCOUNTER → 2024-01-13 | Outpatient (CLI) | payer MEDICARE ==
[2024-01-13 17:23] VITALS: BP 165/74; PULSE 78; RESP 16; TEMP 98
--- NOTE | 2024-01-13 18:13 | P.SLEEP ---
History of Present Illness H&P Date: 01/13/24 Chief Complaint: ZITA This is a 73-year-old male patient with known history of severe obstructive sleep apnea. The patient was diagnosed with established back in 2017. At that time, the patient underwent a sleep study and the patient was found to have severe obstructive sleep apnea with an AHI of 100 and. Subsequently, the patient underwent a CPAP titration and he was titrated to a CPAP pressure of 13 cm of water as he has he did have some initial difficulties in establishing compliancy. Subsequently, he achieved compliancy where he was averaging around 4.9 hours of CPAP use per night at a pressure of 15 cm of water and his AHI was down to 3.3. Back then, the patient used to weigh around 318 pounds. I noted that the patient has not used the machine for several years. I lost to follow- up on this patient regarding his obstructive sleep apnea. His compliance data from his current machine is extremely poor and the patient states that he is unable to tolerate the treatment as the machine is loud and humidification system has completely failed and this does cause significant amount of oral dryness which is quite uncomfortable to the patient. He is currently set in APAP mode pressures of 7/20 cm of water. He is also set his humidity at 7 with a temperature of 78 F and despite this, he has been able to tolerate the treatment. The most recent mask interface that the patient is advised is DreamWear full facemask large size. In terms of sleep apnea symptoms, the patient continues to have excessive daytime sleepiness and fatigue. He has somewhat felt better at the patient has lost weight and currently is down to 297 pounds. He underwent recent coronary interventions as the patient presented to the hospital because of elevated troponin along with atrial fibrillation with rapid ventricular response. He underwent cardiac catheterization angioplasty and stenting of the LAD. As far as his atrial fibrillation, the patient underwent a ALMA cardioversion on 10/09/2023 and he remains in normal sinus rhythm. He is also known to have bilateral pulmonary nodules identified on a previous CAT scan of the chest done on 10/28/2021 and the patient has undergone serial CAT scan of the chest most recent of which is on 10/07/2023. There has been some interval increase in the size of the pulmonary nodules which obviously has been of concern and the patient needs to follow-up on outpatient basis regarding those problems. The patient is also known to have hypertension. For now, the patient did not going to bed airfit 11 PM and is getting out of bed at around 7:30 AM in the morning and is averaging 8 hours of sleep. Occasionally takes naps during the day. Does not fall asleep while driving. He reports his [place] score to be at 3. No nighttime chest pain or shortness of breath or angina. No nighttime heartburn. Review of Systems Constitutional: Reports daytime sleepiness, Reports fatigue, Reports weight loss Eyes: denies as per HPI, denies blurred vision, denies bulging eye, denies decreased vision, denies diplopia, denies discharge, denies dry eye, denies irritation, denies itching, denies pain, denies photophobia, denies loss of peripheral vision, denies loss of vision, denies tunnel vision/blind spots Ears: deny: decreased hearing, ear discharge, earache, tinnitus Ears, nose, mouth and throat: Denies headache, Denies sore throat Breasts: absent: as per HPI, gynecomastia Cardiovascular: Reports dyspnea on exertion, Reports irregular heart beat Respiratory: Reports dyspnea, Reports sleep apnea, Reports snoring Gastrointestinal: Reports as per HPI Genitourinary: Reports as per HPI Musculoskeletal: Reports as per HPI Musculoskeletal: absent: ankle pain, ankle stiffness, ankle swelling, as per HPI, elbow pain, elbow stiffness, elbow swelling, foot pain, foot stiffness, foot swelling, hand pain, hand stiffness, hand swelling, hip pain, hip stiffness, hip swelling, knee pain, knee stiffness, knee swelling, shoulder pain, shoulder stiffness, shoulder swelling, wrist pain, wrist stiffness, wrist swelling Integumentary: Reports as per HPI Neurological: Reports as per HPI Psychiatric: Reports hypersomnia, Reports sleep disturbances Endocrine: Reports as per HPI, Reports fatigue Hematologic/Lymphatic: Reports as per HPI Allergic/Immunologic: Reports as per HPI Past Medical History Past Medical History: Atrial Fibrillation, Coronary Artery Disease (CAD), Hypertension, Prostate Disorder, Sleep Apnea/CPAP/BIPAP Additional Past Medical History / Comment(s): BPH, ELECTROCUTED IN 1985- BODY ACHES, no device for sleep apnea. History of Any Multi-Drug Resistant Organisms: None Reported Past Surgical History: Heart Catheterization With Stent Additional Past Surgical History / Comment(s): Cataract surgery abdominal surgery due to electrocution. Past Anesthesia/Blood Transfusion Reactions: No Reported Reaction Date of Last Stent Placement:: 11/18/23 Past Psychological History: No Psychological Hx Reported Smoking Status: Former smoker Past Alcohol Use History: Occasional Additional Past Alcohol Use History / Comment(s): SMOKED TEEN, QUIT IN 1967. Past Drug Use History: None Reported - Past Family History Mother Family Medical History: No Reported History Father Family Medical History: Congestive Heart Failure (CHF), Hypertension Medications and Allergies Home Medications Medication Instructions Recorded Confirmed Type Atorvastatin [Lipitor] 80 mg PO HS #30 tab 10/10/23 01/13/24 Rx Tamsulosin [Flomax] 0.4 mg PO HS 12/09/23 01/13/24 History Apixaban [Eliquis] 5 mg PO BID #30 tab 12/12/23 01/13/24 Rx Ticagrelor [Brilinta] 90 mg PO BID #60 tab 12/12/23 01/13/24 Rx Metoprolol Tartrate [Lopressor] 25 mg PO BID #60 tab 12/31/23 01/13/24 Rx Allergies Allergy/AdvReac Type Severity Reaction Status Date / Time No Known Allergies Allergy Verified 12/29/23 13:24 Physical Exam Vitals: Vital Signs Temp Pulse Resp BP Pulse Ox 01/13/24 17:22 98 F 78 16 165/74 96 The patient appeared well nourished and normally developed. Vital signs as documented. Head exam is unremarkable. No scleral icterus or corneal arcus noted. Neck is without jugular venous distension, thyromegaly, or carotid bruits. Carotid upstrokes are brisk bilaterally. Mallampati class IV with crowding of the posterior pharynx Lungs are clear to auscultation and percussion. Cardiac exam reveals the PMI to be normally sized and situated. Rhythm is regular. First and second heart sounds normal. No murmurs, rubs or gallops. Abdominal exam reveals normal bowel sounds, no masses, no organomegaly and no aortic enlargement. Extremities are nonedematous and both femoral and pedal pulses are normal. Examination of the skin revealed no evidence of significant rashes, suspicious appearing nevi or other concerning lesions. Neurologically, the patient is awake and alert and the patient does not have any focal neurological deficit. Cranial nerves are essentially intact. Assessment and Plan Plan: Severe symptomatic obstructive sleep apnea with an AHI of 111. Not tolerant to the current CPAP therapy probably related to failure to simplification system from his current CPAP unit. Compliance data is poor. Patient is symptomatic from his ZITA. 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 Bilateral pulmonary nodules, being monitored on outpatient basis, will need a follow-up CAT scan to assess for progression of those pulmonary lesions. Patient has been seen in the pulmonary clinic. Chronic fatigue and maintenance BPH Hypertension Hyperlipidemia Plan I evaluated this patient and. The patient demonstrates current CPAP unit. His machine is noisy and obviously there is a failure in his humidification system. I recommend to this patient undergoing another CPAP titration I am going to offer him a new CPAP unit with an updated pressure setting He is going to use his DreamWear large size fullface mask continue monitoring his comorbidities including coronary artery disease and atrial fibrillation Encourage weight loss follow-up CAT scan of the chest in 4 to 6 months time or in regards to his pulmonary nodules and follow-up with the pulmonary clinic Will continue to follow Sleep Note - Sleep Data ESS Total: 3 - Sleep Note Sleep Note: Temperature: 98 F Pulse Rate: 78 Respiratory Rate: 16 Blood Pressure: 165/74 SpO2: 96 Height: Weight: BMI: Neck Circumference: 19
== END ==
LOC: 3 N SLEEP 15:12
PROVIDERS: ATTEND Internal Medicine Critical Care Medicine
CPT/HCPCS: 99211

== ENCOUNTER 2024-01-28 19:05 | Outpatient (CLI) | payer MEDICARE ==
--- NOTE | 2024-02-03 22:59 | P.PCN ---
Date of Procedure: 01/28/24 Operative Findings: CPAP titration study Date of service is 01/28/2024 Pertinent history This is a 73-year-old male patient with known history of severe obstructive sleep apnea. The patient was diagnosed with established back in 2017. At that time, the patient underwent a sleep study and the patient was found to have severe obstructive sleep apnea with an AHI of 100 and. Subsequently, the patient underwent a CPAP titration and he was titrated to a CPAP pressure of 13 cm of water as he has he did have some initial difficulties in establishing compliancy. Subsequently, he achieved compliancy where he was averaging around 4.9 hours of CPAP use per night at a pressure of 15 cm of water and his AHI was down to 3.3. Back then, the patient used to weigh around 318 pounds. I noted that the patient has not used the machine for several years. I lost to follow- up on this patient regarding his obstructive sleep apnea. His compliance data from his current machine is extremely poor and the patient states that he is unable to tolerate the treatment as the machine is loud and humidification syst em has completely failed and this does cause significant amount of oral dryness which is quite uncomfortable to the patient. He is currently set in APAP mode pressures of 7/20 cm of water. He is also set his humidity at 7 with a temperature of 78 F and despite this, he has been able to tolerate the treatment. The most recent mask interface that the patient is advised is DreamWear full facemask large size. In terms of sleep apnea symptoms, the patient continues to have excessive daytime sleepiness and fatigue. He has somewhat felt better at the patient has lost weight and currently is down to 297 pounds. He underwent recent coronary interventions as the patient presented to the hospital because of elevated troponin along with atrial fibrillation with rapid ventricular response. He underwent cardiac catheterization angioplasty and stenting of the LAD. As far as his atrial fibrillation, the patient underwent a ALMA cardioversion on 10/09/2023 and he remains in normal sinus rhythm. He is also known to have bilateral pulmonary nodules identified on a previous CAT scan of the chest done on 10/28/2021 and the patient has undergone serial CAT scan of the chest most recent of which is on 10/07/2023. There has been some interval increase in the size of the pulmonary nodules which obviously has been of concern and the patient needs to follow-up on outpatient basis regarding those problems. The patient is also known to have hypertension. Based on all this, the patient was asked to come into the sleep center to undergo another CPAP titration to update his CPAP machine. Physical findings Height is 5 feet and 9 inches, weight is 304 pounds with a BMI of 44.9 Technical description The patient was studied using a standard complex polysomnography protocol that included recording of the Lead II EKG, Central, occipital and frontal EEG, right and left outer canthus EOG, submental EMG, right and left anterior tibialis EMG, respiratory airflow by thermocouple and or pressure/flow transducer, respiratory efforts by abdominal and thoracic PVDF belts, oxygen saturation by cable oximetry. Position by observation synchronized the PSG. Equipment used: [employer] Stepwise CPAP titration was done to eliminate all obstructive respiratory events Sleep characteristics The total recording duration was 454.5 minutes. The total sleep time was 278.0 minutes. The overall sleep efficiency was 61.2%. The latency to sleep onset was 31.5 minutes. The wake after sleep onset time was 121.5 minutes. The sleep architecture was characterized by 16.2% stage I, 52.2% stage II, 0% stage III and 31.8% REM sleep. The total arousal index was 20.5 CPAP titration summary The patient was started on CPAP therapy initially at a pressure of 7 cm of water pressure was gradually increased by increments of 1 cm to reach a maximum CPAP pressure of 14 cm of water. Briefly, the patient was also given a BiPAP trial at a pressure of 16/12 cm of water. I carefully reviewed the CPAP titration taken, the patient sleep stage and body position. The titration itself was successful and the patient had adequate illumination of the obstructive respiratory events of the previous CPAP pressures measured. There was some residual obstructive events noted he had in general, the patient's AHI was considerably lower while on CPAP therapy and the patient had no significant oxygen desaturations. Arousal events The patient had a total of 95 arousals with an index of 20.5. Respiratory arousal index was 2.2 Periodic movement events There was a total of 465 periodic limb movements with an index of 100.4. Of those events, there was only 1 periodic limb movement activity with arousals with an index of 0.2 Cardiac summary Average heart rate was 68 with a minimum heart rate of 64 and a maximum heart rate of 74 Assessment Severe symptomatic obstructive sleep apnea with an AHI of 111. Patient underwent a successful CPAP titration. All sleep stages were encountered during this titration including REM sleep. The patient was essentially studied in a supine body position. There was adequate elimination of the obstructive respiratory events without any significant desaturations. 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 Bilateral pulmonary nodules, being monitored on outpatient basis, will need a follow-up CAT scan to assess for progression of those pulmonary lesions. Patient has been seen in the pulmonary clinic. Chronic fatigue and maintenance BPH Hypertension Hyperlipidemia Plan Initiate CPAP therapy and the patient was placed on APAP mode pressures of 7/14 cm of water with a C-Flex of 3 He is going to use his [employer] large size fullface mask continue monitoring his comorbidities including coronary artery disease and atrial fibrillation Encourage weight loss Will continue to follow The patient will see him back in the office in 30 to 90 days to assess clinical response and compliancy.
== END 2024-01-29 05:42 | disposition home or self-care (01) ==
LOC: 3 N SLEEP 19:05
PROVIDERS: ATTEND Internal Medicine Critical Care Medicine
DX: G47.33 Obstructive sleep apnea (adult) (pediatric) (principal); G47.10 Hypersomnia, unspecified; E66.01 Morbid (severe) obesity due to excess calories; J98.4 Other disorders of lung; I25.10 Atherosclerotic heart disease of native coronary artery without angina pectoris; I48.0 Paroxysmal atrial fibrillation; N40.0 Benign prostatic hyperplasia without lower urinary tract symptoms; I10 Essential (primary) hypertension; E78.5 Hyperlipidemia, unspecified; R53.82 Chronic fatigue, unspecified; R91.8 Other nonspecific abnormal finding of lung field; Z68.41 Body mass index [BMI] 40.0-44.9, adult; Z95.5 Presence of coronary angioplasty implant and graft; Z79.899 Other long term (current) drug therapy; Z79.01 Long term (current) use of anticoagulants
CPT/HCPCS: 95811

== ENCOUNTER 2024-02-26 07:33 | Observation (INO) | payer MEDICARE ==
--- NOTE | 2024-02-26 08:08 | ED ---
General Adult HPI - General Chief complaint: Chest Pain Stated complaint: Chest pain, SOB Time Seen by Provider: 02/26/24 07:36 Source: patient, family, RN notes reviewed, old records reviewed Limitations: no limitations - History of Present Illness Initial comments: 73-year-old male history of atrial fibrillation, CAD, CHF presenting with exertional dyspnea and chest pain. Patient had recent hospital admission and states that he did have a stent placed within the last 2 months. He has had multiple medication changes over the past 30 days. No fever. No cough. No lower extremity swelling. - Related Data Home Medications Medication Instructions Recorded Confirmed Tamsulosin [Flomax] 0.4 mg PO HS 12/09/23 01/13/24 Previous Rx's Medication Instructions Recorded Atorvastatin [Lipitor] 80 mg PO HS #30 tab 10/10/23 Apixaban [Eliquis] 5 mg PO BID #30 tab 12/12/23 Ticagrelor [Brilinta] 90 mg PO BID #60 tab 12/12/23 Metoprolol Tartrate [Lopressor] 25 mg PO BID #60 tab 12/31/23 Allergies Allergy/AdvReac Type Severity Reaction Status Date / Time No Known Allergies Allergy Verified 02/26/24 07:38 Review of Systems ROS Statement: Those systems with pertinent positive or pertinent negative responses have been documented in the HPI. ROS Other: All systems not noted in ROS Statement are negative. Past Medical History Past Medical History: Atrial Fibrillation, Coronary Artery Disease (CAD), Hypertension, Prostate Disorder, Sleep Apnea/CPAP/BIPAP Additional Past Medical History / Comment(s): BPH, ELECTROCUTED IN 1985- BODY ACHES, no device for sleep apnea. History of Any Multi-Drug Resistant Organisms: None Reported Past Surgical History: Heart Catheterization With Stent Additional Past Surgical History / Comment(s): Cataract surgery abdominal surgery due to electrocution. Past Anesthesia/Blood Transfusion Reactions: No Reported Reaction Date of Last Stent Placement:: 11/18/23 Past Psychological History: No Psychological Hx Reported Smoking Status: Former smoker Past Alcohol Use History: Occasional Past Drug Use History: None Reported - Past Family History Mother Family Medical History: No Reported History Father Family Medical History: Congestive Heart Failure (CHF), Hypertension General Exam Limitations: no limitations General appearance: alert, in no apparent distress Head exam: Present: atraumatic, normocephalic Eye exam: Present: normal appearance, PERRL ENT exam: Present: normal exam Neck exam: Present: normal inspection. Absent: tenderness, meningismus Respiratory exam: Present: normal lung sounds bilaterally. Absent: respiratory distress, wheezes Cardiovascular Exam: Present: regular rate, normal rhythm GI/Abdominal exam: Present: soft. Absent: distended, tenderness, guarding Extremities exam: Present: normal inspection, normal capillary refill. Absent: calf tenderness Neurological exam: Present: alert, oriented X3, CN II-XII intact. Absent: motor sensory deficit Psychiatric exam: Present: normal affect, normal mood Skin exam: Present: warm, dry, intact. Absent: cyanosis, diaphoretic Course Vital Signs 02/26/24 07:35 Temperature 99 F Pulse Rate 87 Respiratory 18 Rate Blood Pressure 166/91 O2 Sat by Pulse 94 L Oximetry Medical Decision Making - Medical Decision Making Was pt. sent in by a medical professional or institution (Dr. PA, PLACEMENT OFFICER, urgent care, hospital, or long-term...) When possible be specific @ -No Did you speak to anyone other than the patient for history (EMS, parent, family, police, friend...)? What history was obtained from this source @ -No Did you review nursing and triage notes (agree or disagree)? Why? @ -I reviewed and agree with nursing and triage notes Were old charts reviewed (outside hosp., previous admission, EMS record, old EKG, old radiological studies, urgent care reports/EKG's, long-term records)? Report findings @ -No old charts were reviewed Differential Chest Pain: Stable Angina, Unstable Angina, STEMI, NSTEMI Aortic Dissection, Pneumothorax, Musculoskeletal, Esophageal Spasm GERD, Cholecystitis, Pancreatitis, Zoster, this is not meant to be an all-inclusive list. EKG interpreted by me (3pts min.). @ -[Sinus rhythm rate of 84, FL interval 175, QRS duration 102, QTc [address] segment elevation. X-rays interpreted by me (1pt min.). @Chest x-ray negative for acute cardiopulmonary findings CT interpreted by me (1pt min.). @ -None done U/S interpreted by me (1pt. min.). @ -None done What testing was considered but not performed or refused? (CT, X-rays, U/S, labs)? Why? @ -None What meds were considered but not given or refused? Why? @ -None Did you discuss the management of the patient with other professionals (professionals i.e. , PA, PLACEMENT OFFICER, lab, RT, psych nurse, social media coordinator, brownell operator, teacher, sergeant of officers, mental health case manager)? Give summary @ -No Was smoking cessation discussed for >3mins.? @ -No Was critical care preformed (if so, how long)? @ -No Were there social determinants of health that impacted care today? How? (Ho melessness, low income, unemployed, alcoholism, drug addiction, transportation, low edu. Level, literacy, decrease access to med. care, care home, rehab)? @ -No Was there de-escalation of care discussed even if they declined (Discuss DNR or withdrawal of care, Hospice)? DNR status @ -No What co-morbidities impacted this encounter? (DM, HTN, Smoking, COPD, CAD, Cancer, CVA, ARF, Chemo, Hep., AIDS, mental health diagnosis, sleep apnea, morbid obesity)? @ -None Was patient admitted / discharged? Hospital course, mention meds given and route, prescriptions, significant lab abnormalities, going to OR and other pertinent info. @ -[73-year-old male presenting with chest pain patient also has moderate dyspnea. History of CAD with recent stenting. EKG is sinus without ST segment elevation. Patient has normal CBC, normal CMP, negative troponin, his BNP is improved compared to prior. Patient will be observed for telemetry, cardiology consultation and serial cardiac enzymes. Case discussed with Dr. Ramírez. Undiagnosed new problem with uncertain prognosis? @ -No Drug Therapy requiring intensive monitoring for toxicity (Heparin, Nitro, Insulin, Cardizem)? @ -No Were any procedures done? @ -No Diagnosis/symptom? @ -Chest pain Acute, or Chronic, or Acute on Chronic? @ -Acute Uncomplicated (without systemic symptoms) or Complicated (systemic symptoms)? @ -Default Side effects of treatment? @ -No Exacerbation, Progression, or Severe Exacerbation? @ -No Poses a threat to life or bodily function? How? (Chest pain, USA, MT, pneumonia, PE, COPD, DKA, ARF, appy, cholecystitis, CVA, Diverticulitis, Homicidal, Suicidal, threat to staff... and all critical care pts) @ -Yes, chest pain, ACS, MT - Lab Data Result diagrams: 02/26/24 07:56 02/26/24 07:56 Lab Results 02/26/24 02/26/24 02/26/24 Range/Units 07:56 07:56 07:56 WBC 5.6 (3.8-10.6) k/uL RBC 4.04 L (4.30-5.90) m/uL Hgb 12.4 L (13.0-17.5) gm/dL Hct 38.2 L (39.0-53.0) % MCV 94.6 (80.0-100.0) fL MCH 30.6 (25.0-35.0) pg MCHC 32.3 (31.0-37.0) g/dL RDW 15.2 (11.5-15.5) % Plt Count 169 (150-450) k/uL MPV 8.2 Neutrophils % 75 % Lymphocytes % 15 % Monocytes % 6 % Eosinophils % 3 % Basophils % 1 % Neutrophils # 4.1 (1.3-7.7) k/uL Lymphocytes # 0.9 L (1.0-4.8) k/uL Monocytes # 0.3 (0-1.0) k/uL Eosinophils # 0.1 (0-0.7) k/uL Basophils # 0.0 (0-0.2) k/uL PT 12.1 (10.0-12.5) sec INR 1.1 (<1.2) APTT 24.8 (22.0-30.0) sec Sodium 141 (137-145) mmol/L Potassium 3.9 (3.5-5.1) mmol/L Chloride 106 (98-107) mmol/L Carbon Dioxide 27 (22-30) mmol/L Anion Gap 8 mmol/L BUN 15 (9-20) mg/dL Creatinine 0.94 (0.66-1.25) mg/dL Est GFR (CKD-EPI)AfAm >90 (>60 ml/min/1.73 sqM) Est GFR (CKD-EPI)NonAf 81 (>60 ml/min/1.73 sqM) Glucose 127 H (74-99) mg/dL Calcium 8.9 (8.4-10.2) mg/dL Magnesium 1.9 (1.6-2.3) mg/dL Total Bilirubin 1.0 (0.2-1.3) mg/dL AST 36 (17-59) U/L ALT 46 (4-49) U/L Alkaline Phosphatase 81 (38-126) U/L Troponin I (0.000-0.034) ng/mL NT-Pro-B Natriuret Pep 1570 pg/mL Total Protein 7.1 (6.3-8.2) g/dL Albumin 4.0 (3.5-5.0) g/dL 02/26/24 Range/Units 07:56 WBC (3.8-10.6) k/uL RBC (4.30-5.90) m/uL Hgb (13.0-17.5) gm/dL Hct (39.0-53.0) % MCV (80.0-100.0) fL MCH (25.0-35.0) pg MCHC (31.0-37.0) g/dL RDW (11.5-15.5) % Plt Count (150-450) k/uL MPV Neutrophils % % Lymphocytes % % Monocytes % % Eosinophils % % Basophils % % Neutrophils # (1.3-7.7) k/uL Lymphocytes # (1.0-4.8) k/uL Monocytes # (0-1.0) k/uL Eosinophils # (0-0.7) k/uL Basophils # (0-0.2) k/uL PT (10.0-12.5) sec INR (<1.2) APTT (22.0-30.0) sec Sodium (137-145) mmol/L Potassium (3.5-5.1) mmol/L Chloride (98-107) mmol/L Carbon Dioxide (22-30) mmol/L Anion Gap mmol/L BUN (9-20) mg/dL Creatinine (0.66-1.25) mg/dL Est GFR (CKD-EPI)AfAm (>60 ml/min/1.73 sqM) Est GFR (CKD-EPI)NonAf (>60 ml/min/1.73 sqM) Glucose (74-99) mg/dL Calcium (8.4-10.2) mg/dL Magnesium (1.6-2.3) mg/dL Total Bilirubin (0.2-1.3) mg/dL AST (17-59) U/L ALT (4-49) U/L Alkaline Phosphatase (38-126) U/L Troponin I 0.029 (0.000-0.034) ng/mL NT-Pro-B Natriuret Pep pg/mL Total Protein (6.3-8.2) g/dL Albumin (3.5-5.0) g/dL Disposition Clinical Impression: Chest pain Disposition: ADMITTED IP TO THIS HOSP Condition: Stable Is patient prescribed a controlled substance at d/c from ED?: No Referrals: Devonte Baum DO [Primary Care Provider] - 1-2 days Time of Disposition: 09:07
[2024-02-26 08:10] LABS: Basophils % (A) 1 %; Eosinophils # (A) 0.1 k/uL (0-0.7); Eosinophils % (A) 3 %; HCT 38.2 % (39.0-53.0); HGB 12.4 gm/dL (13.0-17.5); Lymphocytes # (A) 0.9 k/uL (1.0-4.8); Lymphocytes % (A) 15 %; MCH 30.6 pg (25.0-35.0); MCHC 32.3 g/dL (31.0-37.0); MCV 94.6 fL (80.0-100.0); Mean Platelet Volume 8.2; Monocytes # (A) 0.3 k/uL (0-1.0); Monocytes % (A) 6 %; Neutrophils # (A) 4.1 k/uL (1.3-7.7); Neutrophils % (A) 75 %; Platelet Count 169 k/uL (150-450); RBC 4.04 m/uL (4.30-5.90); RDW 15.2 % (11.5-15.5); WBC 5.6 k/uL (3.8-10.6)
[2024-02-26 08:21] LABS: INR 1.1 (<1.2); Partial Thromboplastin Time 24.8 sec (22.0-30.0); Prothrombin Time 12.1 sec (10.0-12.5)
--- NOTE | 2024-02-26 08:23 | XR ---
EXAMINATION TYPE: XR chest 2V DATE OF EXAM: 02/26/2024 8:19 AM COMPARISON: Chest radiographs from 12/30/2023 CLINICAL INDICATION: Male, 73 years old with history of Chest Pain; TECHNIQUE: XR chest 2V Frontal and lateral views of the chest. FINDINGS: Lungs/Pleura: There is no evidence of pleural effusion, focal consolidation, or pneumothorax. Pulmonary vascularity: Unremarkable. Heart/mediastinum: Cardiomediastinal silhouette is unremarkable. Musculoskeletal: No acute osseous pathology. IMPRESSION: No acute cardiopulmonary disease/process. [facility], , 02/26/2024 8:21 AM
[2024-02-26 08:24] LABS: ALT 46 U/L (4-49); AST 36 U/L (17-59); African American GFR (CKD) >90 (>60 ml/min/1.73 sqM); Alkaline Phosphatase 81 U/L (38-126); Anion Gap 8 mmol/L; Blood Urea Nitrogen 15 mg/dL (9-20); Calcium 8.9 mg/dL (8.4-10.2); Carbon Dioxide 27 mmol/L (22-30); Chloride 106 mmol/L (98-107); Glucose 127 mg/dL (74-99); Magnesium 1.9 mg/dL (1.6-2.3); Non-African American GFR(CKD) 81 (>60 ml/min/1.73 sqM); Potassium 3.9 mmol/L (3.5-5.1); Sodium 141 mmol/L (137-145); Total Protein 7.1 g/dL (6.3-8.2)
[2024-02-26 08:31] LABS: NT-Pro-B-Type Natriuretic Pept 1570 pg/mL
[2024-02-26] MEDS ORDERED: NALOXONE 0.4 MG/ML 1 ML VIAL IV PRN (09:07)
[2024-02-26] MEDS ORDERED: NITROGLYCERIN SL TABS 0.4 MG TAB SUBLINGUAL PRN (12:17)
[2024-02-26 14:32] VITALS: RESP 18
[2024-02-26] MEDS: METOPROLOL TARTRATE 50 MG TAB PO SCH (15:16)
[2024-02-26] MEDS: APIXABAN 5 MG TAB PO SCH (21:22)
[2024-02-26] MEDS: TAMSULOSIN 0.4 MG CAP.ER.24H PO SCH (21:22)
[2024-02-26] MEDS: LOSARTAN 50 MG TAB PO SCH (21:22)
[2024-02-26] MEDS: ATORVASTATIN 80 MG TAB PO SCH (21:22)
--- NOTE | 2024-02-26 23:03 | P.HPIM ---
History of Present Illness This is a pleasant 73 years old male with past medical history of multiple medical problems including A-fib on Freidais Presents with right side chest pain radiating to the back about 2/10 in severity with no specific character The pain was more yesterday and this morning but started last Friday. When it is acting up patient would have little shortness of breath but now he does not his breathing is quiet Pain is better with sitting and worse with lying down No coughing No GI/ symptoms, no specific neurological symptom He denies smoking alcohol or illicit drug Hemodynamically stable Troponin type II are -0.29 and 0.25 Vitals stable Labs including CBC, BMP and LFT were unremarkable Hemoglobin mildly low EKG showing sinus rhythm at 74 Chest x-ray is negative for acute process Patient was admitted with manager front evaluation Review of Systems Review of systems CONSTITUTIONAL: No fever, no malaise, no fatigue. HEENT: No recent visual problems or hearing problems. Denied any sore throat. CARDIOVASCULAR: No orthopnea, PND, no palpitations, no syncope. PULMONARY: No shortness of breath, no cough, no hemoptysis. GASTROINTESTINAL: No diarrhea, no nausea, no vomiting, no abdominal pain. Normoactive bowel sounds. NEUROLOGICAL: No headaches, no weakness, no numbness. HEMATOLOGICAL: Denies any bleeding or petechiae. GENITOURINARY: Denies any burning micturition, frequency, or urgency. MUSCULOSKELETAL/RHEUMATOLOGICAL: Denies any joint pain, swelling, or any muscle pain. ENDOCRINE: Denies any polyuria or polydipsia. Past Medical History Past Medical History: Atrial Fibrillation, Coronary Artery Disease (CAD), Hypertension, Prostate Disorder, Sleep Apnea/CPAP/BIPAP Additional Past Medical History / Comment(s): BPH, ELECTROCUTED IN 1985- BODY ACHES, no device for sleep apnea. History of Any Multi-Drug Resistant Organisms: None Reported Past Surgical History: Heart Catheterization With Stent Additional Past Surgical History / Comment(s): Cataract surgery abdominal surgery due to electrocution. Past Anesthesia/Blood Transfusion Reactions: No Reported Reaction Date of Last Stent Placement:: 11/18/23 Past Psychological History: No Psychological Hx Reported Smoking Status: Former smoker Past Alcohol Use History: Occasional Past Drug Use History: None Reported - Past Family History Mother Family Medical History: No Reported History Father Family Medical History: Congestive Heart Failure (CHF), Hypertension Medications and Allergies Home Medications Medication Instructions Recorded Confirmed Type Atorvastatin [Lipitor] 80 mg PO HS #30 tab 10/10/23 02/26/24 Rx Tamsulosin [Flomax] 0.4 mg PO HS 12/09/23 02/26/24 History Apixaban [Eliquis] 2.5 mg PO BID 02/26/24 02/26/24 History Clopidogrel [Plavix] 75 mg PO DAILY 02/26/24 02/26/24 History Losartan [Cozaar] 50 mg PO HS 02/26/24 02/26/24 History Metoprolol Tartrate [Lopressor] 50 mg PO TID 02/26/24 02/26/24 History Allergies Allergy/AdvReac Type Severity Reaction Status Date / Time No Known Allergies Allergy Verified 02/26/24 09:55 Physical Exam Vitals: Vital Signs Temp Pulse Resp BP Pulse Ox 02/26/24 14:32 86 18 157/77 94 L 02/26/24 11:05 70 16 159/82 94 L 02/26/24 10:00 80 16 140/96 96 02/26/24 07:35 99 F 87 18 166/91 94 L Intake and Output 02/26/24 02/26/24 02/26/24 06:59 14:59 22:59 Other: Weight 133.356 kg GENERAL: The patient is alert and oriented x3, not in any acute distress. Well developed, well nourished. HEENT: Pupils are round and equally reacting to light. EOMI. No scleral icterus. No conjunctival pallor. Normocephalic, atraumatic. No pharyngeal erythema. No thyromegaly. CARDIOVASCULAR: S1 and S2 present. No murmurs, rubs, or gallops. PULMONARY: Chest is clear to auscultation, no wheezing , no crackles. ABDOMEN: Soft, nontender, nondistended, normoactive bowel sounds. No palpable organomegaly. MUSCULOSKELETAL: No joint swelling or deformity. EXTREMITIES: No cyanosis, clubbing, or pedal edema. NEUROLOGICAL: Gross neurological examination did not reveal any focal deficits. SKIN: No rashes. no petechiae. Results CBC & Chem 7: 02/26/24 07:56 02/26/24 07:56 Labs: Abnormal Lab Results - Last 24 Hours (Table) 02/26/24 02/26/24 Range/Units 07:56 07:56 RBC 4.04 L (4.30-5.90) m/uL Hgb 12.4 L (13.0-17.5) gm/dL Hct 38.2 L (39.0-53.0) % Lymphocytes # 0.9 L (1.0-4.8) k/uL Glucose 127 H (74-99) mg/dL Assessment and Plan Assessment: Right side chest pain, rule out cardiac origin. Looks also musculoskeletal with point tenderness on the right chest A-fib and RVR on Eliquis with dose increase to 0.5 up to 5 mg Hypertension Plan: Continue with Eliquis Continue with the Plavix Serial troponin. Cardiology consult Labs and medication were reviewed.. Continue same treatment. Continue with symptomatic treatment. Resume home medication. Monitor labs and vitals. DVT and GI prophylaxis. Further recommendations as per clinical course of the patient DVT prophylaxis: Eliquis GI Prophylaxis: Prognosis is guarded
[2024-02-27 07:14] VITALS: BP 159/77; PULSE 84; TEMP 98.1
[2024-02-27] MEDS: CLOPIDOGREL 75 MG TAB PO SCH (08:00)
[2024-02-27] MEDS: amLODIPine 5 MG TAB PO SCH (08:00)
--- NOTE | 2024-02-27 08:46 | P.CRDCN ---
History of Present Illness Consult date: 02/27/24 Consult reason: chest pain History of present illness: This is a 73-year-old male patient of Dr. Segundo with past medical history of coronary artery disease with prior stenting of the LAD, mild to moderate disease in the left circumflex and intermediate disease in the RCA as well as hypertension, dyslipidemia, overweight, valvular heart disease, heart failure, paroxysmal atrial fibrillation on Eliquis. We have been asked to evaluate the patient for chest pain. Patient states that he came into the hospital because he could not breathe and then he developed sharp pain in his chest. He states he has not missed any of his medications but he did have a change in his medications on Friday when he saw Dr. Segundo in the office. At that time losartan was increased to 50 mg from 25 mg. Patient denies having any chest pain at this time. No shortness of breath. No lightheadedness or dizziness. Blood pressure 159/77, heart rate 84, pulse ox is 95% on room air. -EKG: Sinus rhythm with no acute ST-T wave changes. -Chest x-ray: No acute process -Laboratory studies: Hemoglobin 12.4, BUN 15 creatinine 0.94. Electrolytes are normal. Troponin negative x 3. proBNP 1570. -Home cardiac medications: Eliquis 2.5 mg twice daily, atorvastatin 80 mg at bedtime, Plavix 75 mg daily, losartan 50 mg at bedtime, Lopressor 50 mg 3 times daily. -Cardiac catheterization performed 11/18/2023 revealed intermediate disease of the ostial RCA, mild to moderate disease of the M01, severe disease of the LAD and subsequently underwent PCI of the mid LAD in same setting. -ALMA performed 08/09/2023 revealed normal EF, moderate TR, moderate MR, moderate biatrial enlargement. -Cardioversion 10/09/2023 of atrial fibrillation to sinus rhythm using 200 J. Review Of Systems: At the time of my exam: CONSTITUTIONAL: Denies fever or chills. HEENT: Denies blurred vision, vision changes, or eye pain. Denies hemoptysis CARDIOVASCULAR: Denies chest pain. Denies orthopnea. Denies PND. Denies palpitations RESPIRATORY: Denies shortness of breath. GASTROINTESTINAL: Denies abdominal pain. Denies nausea or vomiting. HEMATOLOGIC: Denies bleeding disorders. GENITOURINARY: Denies any blood in urine. SKIN: Denies puritis. Denies rash. Physical examination: Gen: This is a 73-year-old male in no acute distress VS: reviewed HEENT: Head is atraumatic, normocephalic. Pupils equal, round. Sclerae is anicteric. NECK: Supple. No JVD. LUNGS: Clear to auscultation. No wheezes or rhonchi. No intercostal retractions. HEART: Regular rate and rhythm. Systolic murmur. ABDOMEN: Soft No tenderness. EXTREMITIES: No pedal edema. No calf tenderness. NEUROLOGICAL: Patient is awake, alert and oriented x3. Assessment: Atypical chest pain, acute coronary syndrome ruled out Uncontrolled hypertension Hyperlipidemia Coronary artery disease with prior stenting of the LAD Plan: Resume patient's home cardiac medications Add amlodipine 5 mg daily Ambulate patient and assess for symptoms. If patient is stable, discharged home with plan to follow-up with Dr. Segundo in 1 week. Thank you kindly for this consultation. Nurse practitioner note has been reviewed, I agree with documented findings and plan of care. Patient was seen and examined. Past Medical History Past Medical History: Atrial Fibrillation, Coronary Artery Disease (CAD), Hypertension, Prostate Disorder, Sleep Apnea/CPAP/BIPAP Additional Past Medical History / Comment(s): BPH, ELECTROCUTED IN 1985- BODY ACHES, no device for sleep apnea. History of Any Multi-Drug Resistant Organisms: None Reported Past Surgical History: Heart Catheterization With Stent Additional Past Surgical History / Comment(s): Cataract surgery abdominal surgery due to electrocution. Past Anesthesia/Blood Transfusion Reactions: No Reported Reaction Date of Last Stent Placement:: 11/18/23 Past Psychological History: No Psychological Hx Reported Smoking Status: Former smoker Past Alcohol Use History: Occasional Past Drug Use History: None Reported - Past Family History Mother Family Medical History: No Reported History Father Family Medical History: Congestive Heart Failure (CHF), Hypertension Medications and Allergies Home Medications Medication Instructions Recorded Confirmed Type Atorvastatin [Lipitor] 80 mg PO HS #30 tab 10/10/23 02/26/24 Rx Tamsulosin [Flomax] 0.4 mg PO HS 12/09/23 02/26/24 History Apixaban [Eliquis] 2.5 mg PO BID 02/26/24 02/26/24 History Clopidogrel [Plavix] 75 mg PO DAILY 02/26/24 02/26/24 History Losartan [Cozaar] 50 mg PO HS 02/26/24 02/26/24 History Metoprolol Tartrate [Lopressor] 50 mg PO TID 02/26/24 02/26/24 History Allergies Allergy/AdvReac Type Severity Reaction Status Date / Time No Known Allergies Allergy Verified 02/26/24 09:55 Physical Exam Vitals: Vital Signs Temp Pulse Pulse Resp BP BP BP 02/27/24 06:45 98.1 F 84 18 159/77 02/27/24 01:40 97.5 F L 86 18 157/82 02/26/24 21:22 181/82 02/26/24 20:46 98.4 F 81 18 194/103 02/26/24 20:00 72 18 159/82 02/26/24 18:26 70 18 158/83 02/26/24 14:32 86 18 157/77 02/26/24 11:05 70 16 159/82 02/26/24 10:00 80 16 140/96 Pulse Ox 02/27/24 06:45 95 02/27/24 01:40 93 L 02/26/24 21:22 02/26/24 20:46 96 02/26/24 20:00 94 L 02/26/24 18:26 94 L 02/26/24 14:32 94 L 02/26/24 11:05 94 L 02/26/24 10:00 96 Intake and Output 02/26/24 02/27/24 02/27/24 22:59 06:59 14:59 Other: Voiding Method Toilet # Voids 5 3 Weight 133.356 kg Results 02/26/24 07:56 02/26/24 07:56 Cardiac Enzymes 02/26/24 02/26/24 02/26/24 Range/Units 07:56 07:56 11:35 AST 36 (17-59) U/L Troponin I 0.029 0.025 (0.000-0.034) ng/mL 02/26/24 Range/Units 15:18 AST (17-59) U/L Troponin I 0.027 (0.000-0.034) ng/mL Coagulation 02/26/24 Range/Units 07:56 PT 12.1 (10.0-12.5) sec APTT 24.8 (22.0-30.0) sec CBC 02/26/24 Range/Units 07:56 WBC 5.6 (3.8-10.6) k/uL RBC 4.04 L (4.30-5.90) m/uL Hgb 12.4 L (13.0-17.5) gm/dL Hct 38.2 L (39.0-53.0) % Plt Count 169 (150-450) k/uL Comprehensive Metabolic Panel 02/26/24 Range/Units 07:56 Sodium 141 (137-145) mmol/L Potassium 3.9 (3.5-5.1) mmol/L Chloride 106 (98-107) mmol/L Carbon Dioxide 27 (22-30) mmol/L BUN 15 (9-20) mg/dL Creatinine 0.94 (0.66-1.25) mg/dL Glucose 127 H (74-99) mg/dL Calcium 8.9 (8.4-10.2) mg/dL AST 36 (17-59) U/L ALT 46 (4-49) U/L Alkaline Phosphatase 81 (38-126) U/L Total Protein 7.1 (6.3-8.2) g/dL Albumin 4.0 (3.5-5.0) g/dL Current Medications Generic Name Dose Route Start Last Admin Trade Name Freq PRN Reason Stop Dose Admin Apixaban 5 mg 02/26/24 21:00 02/26/24 21:22 Apixaban 5 Mg Tab PO 5 mg BID VALDO Administration Protocol Atorvastatin Calcium 80 mg 02/26/24 21:00 02/26/24 21:22 Atorvastatin 80 Mg Tab PO 80 mg HS VALDO Administration Clopidogrel Bisulfate 75 mg 02/27/24 09:00 Clopidogrel 75 Mg Tab PO DAILY VALDO Losartan Potassium 50 mg 02/26/24 21:00 02/26/24 21:22 Losartan 50 Mg Tab PO 50 mg HS VALDO Administration Metoprolol Tartrate 50 mg 02/26/24 16:00 02/26/24 21:22 Metoprolol Tartrate 50 Mg Tab PO 50 mg TID VALDO Administration Naloxone HCl 0.2 mg 02/26/24 09:07 Naloxone 0.4 Mg/Ml 1 Ml Vial IV Q2M PRN Opioid Reversal Nitroglycerin 0.4 mg 02/26/24 12:17 Nitroglycerin Sl Tabs 0.4 Mg Tab SUBLINGUAL Q5M PRN Chest Pain Tamsulosin HCl 0.4 mg 02/26/24 21:00 02/26/24 21:22 Tamsulosin 0.4 Mg Cap.Er.24h PO 0.4 mg HS VALDO Administration Intake and Output 02/26/24 02/27/24 02/27/24 22:59 06:59 14:59 Other: Voiding Method Toilet # Voids 5 3 Weight 133.356 kg 02/26/24 07:56 02/26/24 07:56
--- NOTE | 2024-02-27 13:09 | P.DS ---
Providers Date of admission: 02/26/24 09:08 Attending physician: Nic Ramírez MD Consults: 02/26/24 09:07 Consult Physician Routine Consulting Provider: Tony Segundo Consult Reason/Comments: CP Do you want consulting provider notified?: Yes Primary care physician: Devonte Baum Hospital Course: Diagnoses: Right side chest pain, musculoskeletal with point tenderness on the right chest. Resolved. Cardiac causes ruled out A-fib and RVR on Eliquis with dose increase to 0.5 up to 5 mg Hypertension Hospital course: This is a pleasant 73 years old male with past medical history of multiple medical problems including A-fib on Eliquis Presents with right side chest pain radiating to the back about 2/10 in severity with no specific character The pain was more yesterday and this morning but started last Friday. 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 Chest pain resolved. Cardiology cleared him for discharge Norvasc 5 mg added per cardiology team recommendation Problems and management plan were discussed with the patient and he verbalized understanding and acceptance Patient was found stable and can be discharged home in guarded prognosis however he needs follow-up as an outpatient. Patient was instructed to follow up with PCP within one week and patient agrees Patient instructed to follow-up with Dr. Cunha in 1 week after discharge and he agrees Physical exam Gen: patient is a AAOx3, no distress CVS: S1-S2, RRR, no murmur Lungs: B/L CTA, no wheezing Abdomen: soft, no distention, no tenderness, positive bowel sounds Extremity: no leg edema or induration Time spent more than 35 minutes Patient Condition at Discharge: Stable Plan - Discharge Summary New Discharge Prescriptions: New amLODIPine [Norvasc] 5 mg PO DAILY #30 tab Continue Metoprolol Tartrate [Lopressor] 50 mg PO TID Losartan [Cozaar] 50 mg PO HS Apixaban [Eliquis] 2.5 mg PO BID Atorvastatin [Lipitor] 80 mg PO HS #30 tab Tamsulosin [Flomax] 0.4 mg PO HS Clopidogrel [Plavix] 75 mg PO DAILY Discharge Medication List Atorvastatin [Lipitor] 80 mg PO HS #30 tab 10/10/23 [Rx] Tamsulosin [Flomax] 0.4 mg PO HS 12/09/23 [History] Apixaban [Eliquis] 2.5 mg PO BID 02/26/24 [History] Clopidogrel [Plavix] 75 mg PO DAILY 02/26/24 [History] Losartan [Cozaar] 50 mg PO HS 02/26/24 [History] Metoprolol Tartrate [Lopressor] 50 mg PO TID 02/26/24 [History] amLODIPine [Norvasc] 5 mg PO DAILY #30 tab 02/27/24 [Rx] Follow up Appointment(s)/Referral(s): Tony Segundo MD [STAFF PHYSICIAN] - 1 Week Devonte Baum DO [Primary Care Provider] - 1-2 days Activity/Diet/Wound Care/Special Instructions: Heart healthy diet Activity is restricted till you see your doctor Discharge Disposition: HOME SELF-CARE
== END 2024-02-27 14:27 | disposition home or self-care (01) ==
LOC: EC 07:33 → 6NMEDSUR 09:08
PROVIDERS: ADMIT Internal Medicine; ATTEND Internal Medicine
DX: R07.89 Other chest pain (principal); I11.0 Hypertensive heart disease with heart failure; I50.9 Heart failure, unspecified; I48.0 Paroxysmal atrial fibrillation; I08.1 Rheumatic disorders of both mitral and tricuspid valves; I25.10 Atherosclerotic heart disease of native coronary artery without angina pectoris; E66.3 Overweight; Z68.41 Body mass index [BMI] 40.0-44.9, adult; E78.5 Hyperlipidemia, unspecified; Z79.01 Long term (current) use of anticoagulants; Z79.02 Long term (current) use of antithrombotics/antiplatelets; Z79.899 Other long term (current) drug therapy; Z87.891 Personal history of nicotine dependence; Z95.5 Presence of coronary angioplasty implant and graft
CPT/HCPCS: 99285; 36415; 93005; 83880; 80053; 83735; 84484; 85025; 85610; 85730; 71046; G0378 ×2

== ENCOUNTER → 2024-04-20 | Outpatient (CLI) | payer MEDICARE ==
[2024-04-20 13:15] VITALS: BP 124/69; PULSE 69; RESP 16; TEMP 98
--- NOTE | 2024-04-20 13:30 | P.PN ---
Progress Note - Text Progress Note Date: 04/20/24 74-year-old male patient with known history of obstructive sleep apnea, he reported compliance to chart. 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 His original diagnosis established back in 2016. The patient underwent a reevaluation on January 2024 and he continues to have severe symptomatic ZITA with an AHI of 111. The patient subsequently underwent a successful CPAP titration. He was offered a new generation ResMed 11 and the patient is coming in for a compliancy check. The patient is using a DreamWear fullface mask large size under the nose. Overall, he is using the machine every night he is averaging around 4 hours of 60 minutes of CPAP use per night. His usage of the device for more than 4 hours in the order of 57%. He is on APAP mode pressures of 7/14 cm of water. His AHI is down to 2.5. 95th percentile pressure is at 13.3. Leaks are minimal at 3 L/min nasal cannula. He is benefiting from this treatment. No significant hypersomnia or sleepiness. No snoring while on treatment. His cardiac rhythm is sinus. No other significant events since his last evaluation. No angina. No palpitation. No nocturnal shortness of breath or chest pain. He seems to be committed to long-term CPAP therapy. He is known also to have coronary artery disease and a cardiac catheterization has been done in the past with stenting of the LAD. He has pulmonary embolism, hypertension, BPH and hyperlipidemia is comorbid conditions. [facility] has 124/69, pulse is 69, respirations 16, weight is 304 pounds The patient appeared well nourished and normally developed. Vital signs as documented. Head exam is unremarkable. No scleral icterus or corneal arcus noted. Neck is without jugular venous distension, thyromegaly, or carotid bruits. Carotid upstrokes are brisk bilaterally. Lungs are clear to auscultation and percussion. Cardiac exam reveals the PMI to be normally sized and situated. Rhythm is regular. First and second heart sounds normal. No murmurs, rubs or gallops. Abdominal exam reveals normal bowel sounds, no masses, no organomegaly and no aortic enlargement. Extremities are nonedematous and both femoral and pedal pulses are normal. Examination of the skin revealed no evidence of significant rashes, suspicious appearing nevi or other concerning lesions. Neurologically, the patient is awake and alert and the patient does not have any focal neurological deficit. Cranial nerves are essentially intact. Review of system a 14 point review of system was done and the positive by 0 much above history of present illness Assessment Severe symptomatic obstructive sleep apnea with an AHI of 111. Patient underwent a successful CPAP titration. All sleep stages were encountered during this titration including REM sleep. The patient was essentially studied in a supine body position. There was adequate elimination of the obstructive respi ratory events without any significant desaturations. The patient is coming in today for a compliancy check. He is extremely compliant and the patient is benefiting from the treatment. He needs to extend his number of hours of sleep as the patient's usage of the device for more than 4 hours in the order of 97%. Nevertheless, his treatment is successful while on treatment. 95th percentile pressure is at 13.3 and his AHI is down to 2.9 while being on treatment. He has a new generation ResMed 11 and is using a DreamWear full facemask under the nose, large size. 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 Bilateral pulmonary nodules, being monitored on outpatient basis, will need a follow-up CAT scan to assess for progression of those pulmonary lesions. Patient has been seen in the pulmonary clinic. Chronic fatigue and maintenance BPH Hypertension Hyperlipidemia Plan Continue APAP mode pressures of 7/14 cm of water with a C-Flex of 3 Keep DreamWear large size fullface mask Treatment is successful and the patient is to increase the number of hours of sleep with his CPAP unit. Will need to achieve a 70% or more where the patient uses device more than 4 hours. He was made aware he made a commitment to increase the number of hours of sleep with the device by around 30 minutes to an hour. continue monitoring his comorbidities including coronary artery disease and atrial fibrillation Encourage weight loss Will continue to follow Treatment is successful and the patient is committed. The patient is benefiting from CPAP therapy. The patient was seen back in our office in 1 year.
== END ==
LOC: 3 N SLEEP 13:01
PROVIDERS: ATTEND Internal Medicine Critical Care Medicine
DX: G47.33 Obstructive sleep apnea (adult) (pediatric) (principal); G47.10 Hypersomnia, unspecified; Z99.89 Dependence on other enabling machines and devices; E66.9 Obesity, unspecified; Z68.41 Body mass index [BMI] 40.0-44.9, adult; I25.10 Atherosclerotic heart disease of native coronary artery without angina pectoris; I48.0 Paroxysmal atrial fibrillation; R91.1 Solitary pulmonary nodule; R53.82 Chronic fatigue, unspecified; N40.1 Benign prostatic hyperplasia with lower urinary tract symptoms; I10 Essential (primary) hypertension; E78.5 Hyperlipidemia, unspecified
CPT/HCPCS: 99212

== ENCOUNTER → 2024-05-19 | Outpatient (CLI) | payer MEDICARE ==
--- NOTE | 2024-05-19 14:29 | XR ---
EXAMINATION TYPE: XR shoulder complete LT DATE OF EXAM: 05/19/2024 2:03 PM INDICATION: Patient age:Male; 74 years old; Reason for study: M25.512 PAIN IN LEFT SHOULDER; pain COMPARISON: None TECHNIQUE: The left shoulder was examined in AP, internally rotated and scapular Y projections. . FINDINGS: No evidence of acute osseous pathology, joint dislocation, or soft tissue swelling. AC joint arthropa thy with joint space narrowing. The remaining portions of the visualized chest are unremarkable. IMPRESSION: 1. No acute osseous pathology. 2. Mild AC joint arthropathy. [facility], , 05/19/2024 2:27 PM
== END | disposition home or self-care (01) ==
LOC: LABWHC1 13:48
PROVIDERS: ATTEND Family Medicine
DX: M25.512 Pain in left shoulder (principal); M19.012 Primary osteoarthritis, left shoulder